=== PATIENT | female | born 1995 | race Caucasian/White ===

== ENCOUNTER 2018-09-16 16:02 | Inpatient (IN) | payer OTHER ==
[~2018-09-16] VITALS: Ht 157.5 cm; Wt 47.6 kg
--- NOTE | 2018-09-16 10:00 | NUR ---
NURSE NOTES: Patient vomited about 20cc of dark red blood. Will continue to monitor. Addendum: 09/16/18 at 2346 by AFSANEH TRUJILLO RN TIME WAS 2200 -- NOT 1000.
[2018-09-16 16:03] VITALS: BP 100/63
--- NOTE | 2018-09-16 16:05 | NUR ---
ED Nurse Note: Patient biba c/o of an upper GI bleed, patient states that she has been vomiting and has been dark red tinged, at time of arrival patient does have a throw up bag where it has about 50cc of dark red content on it, patient also arrived with a portacath on the right side of her chest that is patent and infusing liquids. patient is alert and oriented x4, ambulatory with a steady gait, VSS. Dr. Santos aware of patient's status of vomitting blood
[2018-09-16] MEDS ORDERED: DiphenhydrAMINE 50mg/ml Inj IVP ONE ×4 (16:15→20:00)
[2018-09-16] MEDS ORDERED: Hydromorphone 0.5mg/0.5ml inj IVP ONE ×2 (16:15→17:15)
[2018-09-16] MEDS ORDERED: Pantoprazole Inj IV ONE (16:15)
[2018-09-16] MEDS ORDERED: SandoSTATIN 50mcg Inj IVP ONE (16:15)
--- NOTE | 2018-09-16 16:39 | Emergency Room Report ---
History of Present Illness General Chief Complaint: Vomiting Source: Patient Present Illness HPI Patient is brought in by EMS. She's been vomiting blood and has severe epigastric pain. She has a history of severe cirrhosis. She's never had endoscopy done. She's had Swathi-Danielle tears in the past. She also has a history of gastritis. She denies drinking alcohol recently. No melena. She states she has not moved her bowels for several days. The patient was recently discharged 3 days ago from [facility]. Apparently she was scheduled for endoscopy but it was not performed. She left because she was not receiving analgesia. The patient is treated by at pain management doctor and requires high doses of Dilaudid for pain control. H/O bipolar disorder. She does not know that type of hepatitis she has had or the reason for the cirrhosis. She believes it might be hepatitis C. No fevers, chills, chest pain, palpitations, diarrhea, dysuria, abdominal pain, shortness of breath, depression, visual changes, headache. She states she is not at this time. Allergies: Coded Allergies: CHLORHEXIDINE (Verified Allergy, Unknown, Rash, 09/16/18) Patient History Past Medical History: see triage record Social History: Denies: smoking Social History Narrative from home Last Menstrual Period: 2016 Now: No Reviewed Nursing Documentation: PMH: Agreed; PSxH: Agreed Nursing Documentation-PMH Past Medical History: No History, Except For Review of Systems All Other Systems: negative except mentioned in HPI Physical Exam Vital Signs Date Time Temp Pulse Resp B/P (MAP) Pulse Ox O2 Delivery O2 Flow Rate FiO2 09/16/18 15:57 98.1 91 18 100/63 99 Room Air Sp02 EP Interpretation: reviewed, normal General Appearance: alert, GCS 15, mild distress Head: normocephalic Eyes: bilateral eye normal inspection ENT: moist mucus membranes, other - Vomiting dark red blood. Approximately 150 cc in the bag Neck: supple Respiratory: lungs clear, normal breath sounds Cardiovascular #1: regular rate, rhythm Cardiovascular #2: 2+ radial (R) Gastrointestinal: normal inspection, normal bowel sounds, no mass, non- distended, no rebound, guarding - Epigastric somewhat voluntary, tenderness - Epigastric Musculoskeletal: back normal, gait/station normal, normal range of motion Neurologic: alert, oriented x3, grossly normal Psychiatric: depressed affect, anxious Skin: warm/dry, other - Shallow and somewhat pale Medical Decision Making Diagnostic Impression: Primary Impression: UGI bleed Additional Impression: Epigastric pain ER Course Patient presents with vomiting blood and epigastric pain. Differential includes gastritis, esophageal variceal bleed, peptic ulcer, Swathi-Danielle tear amongst others. She may have pancreatitis also. Evaluation will be with EKG, chest x-ray, abdominal film and labs. The patient will be treated with IV hydration, Zofran, Dilaudid, Protonix and Sandostatin. EKG with normal sinus rhythm no injury. Chest x-ray no infiltrates. Abdominal x-ray with nonspecific bowel gas pattern. H/H low. White count normal. CMP normal. Normal lipase. Liver function tests normal. Coags normal. May need transfusions. Vomit several times with 50-100 ml blood (slightly dark, not coffee grounds). Patient with improved pain. Still intermittent vomiting. Several different medications used. Patient refused to take Reglan. Patient requesting Dilaudid 2 mg Q4 hours with benadryl. Blood ordered as ongoing bleeding and low H/H. Admit tele Dr. Gama. Laboratory Tests Test 09/16/18 16:25 White Blood Count 4.4 K/UL (4.8-10.8) L Red Blood Count 3.53 M/UL (4.20-5.40) L Hemoglobin 8.8 G/DL (12.0-16.0) L Hematocrit 28.4 % (37.0-47.0) L Mean Corpuscular Volume 80 FL (80-99) Mean Corpuscular Hemoglobin 25.1 PG (27.0-31.0) L Mean Corpuscular Hemoglobin Concent 31.2 G/DL (32.0-36.0) L Red Cell Distribution Width 17.2 % (11.6-14.8) H Platelet Count 108 K/UL (150-450) L Mean Platelet Volume 9.3 FL (6.5-10.1) Neutrophils (%) (Auto) 53.6 % (45.0-75.0) Lymphocytes (%) (Auto) 35.4 % (20.0-45.0) Monocytes (%) (Auto) 7.9 % (1.0-10.0) Eosinophils (%) (Auto) 2.3 % (0.0-3.0) Basophils (%) (Auto) 0.8 % (0.0-2.0) Prothrombin Time 11.4 SEC (9.30-11.50) Prothrombin Time INR 1.1 (0.9-1.1) PTT 99 SEC (23-33) H Urine Color Pale yellow Urine Appearance Clear Urine pH 5 (4.5-8.0) Urine Specific [place] 1.015 (1.005-1.035) Urine Protein Negative (NEGATIVE) Urine Glucose (UA) Negative (NEGATIVE) Urine Ketones Negative (NEGATIVE) Urine Blood Negative (NEGATIVE) Urine Nitrite Negative (NEGATIVE) Urine Bilirubin Negative (NEGATIVE) Urine Urobilinogen Normal MG/DL (0.0-1.0) Urine Leukocyte Esterase 1+ (NEGATIVE) H Urine RBC 0-2 /HPF (0 - 2) Urine WBC 2-4 /HPF (0 - 2) Urine Squamous Epithelial Cells Few /LPF (NONE/OCC) Urine Bacteria Few /HPF (NONE) Urine HCG, Qualitative Negative (NEGATIVE) Sodium Level 137 MMOL/L (136-145) Potassium Level 3.9 MMOL/L (3.5-5.1) Chloride Level 105 MMOL/L (98-107) Carbon Dioxide Level 25 MMOL/L (21-32) Anion Gap 7 mmol/L (5-15) Blood Urea Nitrogen 7 mg/dL (7-18) Creatinine 0.7 MG/DL (0.55-1.30) Estimate Glomerular Filtration Rate > 60 mL/min (>60) Glucose Level 99 MG/DL (74-106) Calcium Level 8.3 MG/DL (8.5-10.1) L Total Bilirubin 0.3 MG/DL (0.2-1.0) Aspartate Amino Transferase (AST) 35 U/L (15-37) Alanine Aminotransferase (ALT) 40 U/L (12-78) Alkaline Phosphatase 112 U/L (46-116) Total Protein 6.7 G/DL (6.4-8.2) Albumin 3.2 G/DL (3.4-5.0) L Globulin 3.5 g/dL Albumin/Globulin Ratio 0.9 (1.0-2.7) L Lipase 34 U/L (73-393) L EKG Diagnostic Results Rate: normal Rhythm: NSR ST Segments: no acute changes Rhythm Strip Diag. Results EP Interpretation: yes Rhythm: NSR, no PVC's, no ectopy Chest X-Ray Diagnostic Results Chest X-Ray Diagnostic Results : Chest X-Ray Ordered: Yes # of Views/Limited/Complete: 1 View Indication: Other EP Interpretation: Yes Interpretation: no consolidation, no effusion, no pneumothorax, other - nipple FBs Impression: Other Electronically Signed by: Electronically signed by Pollo Santos MD Other X-Ray Diagnostic Results Other X-Ray Diagnostic Results : X-Ray ordered: abd # of Views/Limited Vs Complete: 1 View Indication: Pain Interpretation: nonspecific bowel gas, no sbo, other - inc stool Impression: Other Electronically Signed by: Electronically signed by Pollo Santos MD Last Vital Signs Date Time Temp Pulse Resp B/P (MAP) Pulse Ox O2 Delivery O2 Flow Rate FiO2 09/17/18 00:00 Room Air 09/17/18 00:00 98.2 80 18 101/64 (76) 100 Status: improved Disposition: ADMITTED INPATIENT Condition: Serious Pollo Santos MD Sep 16, 2018 16:39
[2018-09-16 16:54] LABS: APPEARANCE,URINE CLEAR; BILIRUBIN, URINE NEGATIVE (NEGATIVE); COLOR,URINE PALE YELLOW; GLUCOSE, URINE (UA) NEGATIVE (NEGATIVE); KETONES,URINE NEGATIVE (NEGATIVE); LEUKOCYTE ESTERASE ,URINE 1+ (NEGATIVE); NITRITE,URINE NEGATIVE (NEGATIVE); PH,URINE 5 (4.5-8.0); PROTEIN,URINE NEGATIVE (NEGATIVE); UROBILINOGEN,URINE NORMAL MG/DL (0.0-1.0)
[2018-09-16 16:57] LABS: BASOPHILS % (AUTO) 0.8 % (0.0-2.0); EOSINOPHILS % (AUTO) 2.3 % (0.0-3.0); HEMATOCRIT 28.4 % (37.0-47.0); HEMOGLOBIN 8.8 G/DL (12.0-16.0); LYMPHOCYTES % (AUTO) 35.4 % (20.0-45.0); MEAN CORPUSCULAR VOLUME 80 FL (80-99); MONOCYTES % (AUTO) 7.9 % (1.0-10.0); NEUTROPHILS % (AUTO) 53.6 % (45.0-75.0); PLATELET COUNT 108 K/UL (150-450); RED BLOOD COUNT 3.53 M/UL (4.20-5.40); RED CELL DISTRIBUTION WIDTH 17.2 % (11.6-14.8); WHITE BLOOD COUNT 4.4 K/UL (4.8-10.8)
[2018-09-16 17:11] LABS: INR 1.1 (0.9-1.1)
[2018-09-16 17:22] LABS: ANION GAP 7 mmol/L (5-15); BLOOD UREA NITROGEN 7 mg/dL (7-18); CALCIUM 8.3 MG/DL (8.5-10.1); CARBON DIOXIDE 25 MMOL/L (21-32); CHLORIDE 105 MMOL/L (98-107); CREATININE 0.7 MG/DL (0.55-1.30); POTASSIUM 3.9 MMOL/L (3.5-5.1); SODIUM 137 MMOL/L (136-145)
[2018-09-16 17:26] LABS: ALANINE AMINOTRANSFERASE 40 U/L (12-78); ALBUMIN 3.2 G/DL (3.4-5.0); ALBUMIN/GLOBULIN RATIO 0.9 (1.0-2.7); ALKALINE PHOSPHATASE 112 U/L (46-116); ASPARTATE AMINO TRANSFERASE 35 U/L (15-37); BILIRUBIN,TOTAL 0.3 MG/DL (0.2-1.0)
[2018-09-16] MEDS ORDERED: TPN (17:34)
[2018-09-16] MEDS ORDERED: PANTOPRAZOLE SO40 MG ORAL (17:34)
[2018-09-16] MEDS ORDERED: CREON DR 3,0001 EACH PO (17:34)
[2018-09-16] MEDS ORDERED: AMBIEN10 MG ORAL (17:34)
[2018-09-16] MEDS ORDERED: LITHIUM CARBON150 MG ORAL (17:34)
[2018-09-16] MEDS ORDERED: SEROQUEL XR50 MG ORAL (17:34)
[2018-09-16] MEDS ORDERED: ATIVAN2 MG ORAL (17:34)
[2018-09-16] MEDS ORDERED: SEROQUEL XR300 MG ORAL (17:34)
[2018-09-16] MEDS ORDERED: SERTRALINE HCL100 MG PO (17:34)
[2018-09-16] MEDS: Metoclopramide 10mg/2ml Inj IVP ONE ×2 (18:45→19:17)
[2018-09-16] MEDS ORDERED: HYDROmorphone 1mg/ml Carpuject IVP ONE (18:45)
--- NOTE | 2018-09-16 19:00 | NUR ---
ED Nurse Note: Patient transferred to SDU
--- NOTE | 2018-09-16 19:24 | NUR ---
ED Nurse Note: Pt refused Reglan at this time, ERMD aware. Pt stated medication gives her anxiety.
--- NOTE | 2018-09-16 19:30 | NUR ---
NURSE NOTES: Received report from Anjum Patricia, [employer] US[employer] INTERFACE DEVELOPER. Awaiting patient arrival on unit.
[2018-09-16 20:00] VITALS: BP 118/85
--- NOTE | 2018-09-16 20:00 | NUR ---
NURSE NOTES: Patient arrived in unit. Patient is A/O x4. Saturating well on room air. No s/s of acute distress noted. Right chest portacath noted, intact and patent. Bed locked in lowest position with side rails up x2. Call light left within reach. Will continue to monitor.
--- NOTE | 2018-09-16 21:00 | NUR ---
NURSE NOTES: Received admit orders from Dr. Natan MD. Noted and carried out.
[2018-09-16] MEDS: Zolpidem 5mg tab ORAL SCH (22:15)
[2018-09-16] MEDS: Morphine Sulfate 4mg/ml Inj (IV USE ONLY) IVP PRN (22:16)
[2018-09-16] MEDS: DiphenhydrAMINE 50mg/ml Inj IVP PRN (22:17)
[2018-09-16] MEDS: D5NS 1,000 ML IV SCH (22:20)
[2018-09-17] VITALS (9 sets, daily range): BP systolic 98–130; BP diastolic 50–84
[2018-09-17] MEDS: Morphine Sulfate 4mg/ml Inj (IV USE ONLY) IVP PRN (04:15)
[2018-09-17] MEDS: DiphenhydrAMINE 50mg/ml Inj IVP PRN ×4 (04:15→23:10)
[2018-09-17] MEDS: Sertraline 100mg tab ORAL SCH (06:51)
--- NOTE | 2018-09-17 07:58 | NUR ---
HAND-OFF: Report given to Rusty Jimenez RN.
--- NOTE | 2018-09-17 07:59 | NUR ---
NURSE NOTES: Recieved patient from BEN Arnett. Patient VS stable at this time. Patient is on SR on the monitor and storage bin tender. Patient sleeping at this time. Patient on RA with stable saturation. Patient NPO at this time due to upper GI bleed. Patient has bathroom privileges. Patient steady on her feet at this time. Patient only vomited once on the floor this morning. Patient has a right chest permicath that is patent and asymptomatic at this time. Patient bed in low position with bed alarm on and call light in reach at this time.
--- NOTE | 2018-09-17 08:18 | NUR ---
NURSE NOTES: Spoke with Dr Gama regarding pain medication order. Medication changed from morphine to dilaudid at this time. Will follow up.
--- NOTE | 2018-09-17 08:18 | NUR ---
NURSE NOTES: Notified Dr Gama regarding WBC count of 24.1 this morning. Also notified him regarding uncontrolled pain with norco . is consulting Dr Oliva and he instructed for the patient to be given the dilaudid and reassessed. Addendum: 09/17/18 at 0825 by Susan Jimenez RN disregard this note. this note is regarding another patient.
[2018-09-17] MEDS ORDERED: Lithium Carbonate 150mg cap ORAL SCH ×2 (09:00)
[2018-09-17] MEDS: Pantoprazole Inj IVP SCH ×2 (09:33→18:35)
[2018-09-17] MEDS: LORazepam 1mg tab ORAL SCH ×2 (09:33→18:36)
--- NOTE | 2018-09-17 09:38 | Consultation ---
History of Present Illness General Date patient seen: Sep 17, 2018 Present Illness Allergies: Coded Allergies: CHLORHEXIDINE (Verified Allergy, Unknown, Rash, 09/16/18) Medication History Scheduled Lipase/Protease/Amylase (Creon Dr 3,000 Units Capsule), 2 EACH PO TID, (Reported ) [place] Carbonate* ([place]*), 20 MG ORAL DAILY, (Reported) Lorazepam* (Ativan*), 2 MG ORAL BID, (Reported) Pantoprazole* (Pantoprazole*), 40 MG ORAL DAILY, (Reported) Quetiapine Fumarate (Seroquel Xr), 50 MG ORAL ACBREAKFAST, (Reported) Quetiapine Fumarate (Seroquel Xr), 300 MG ORAL QHS, (Reported) Sertraline Hcl* (Zoloft*), 200 MG PO ACBREAKFAST, (Reported) Zolpidem Tartrate* (Ambien*), 10 MG ORAL BEDTIME, (Reported) [Tpn], OVER 12 HOURS, (Reported) Patient History Healthcare decision maker Resuscitation status Full Code Advanced Directive on File Physical Exam Last 24 Hour Vital Signs Date Time Temp Pulse Resp B/P (MAP) Pulse Ox O2 Delivery O2 Flow Rate FiO2 09/17/18 04:00 Room Air 09/17/18 04:00 96.3 76 16 98/57 (71) 99 09/17/18 03:37 68 09/17/18 00:00 Room Air 09/17/18 00:00 98.2 80 18 101/64 (76) 100 09/16/18 23:14 82 09/16/18 20:01 Room Air 09/16/18 20:00 98.1 87 18 118/85 (96) 100 09/16/18 19:00 98.1 85 18 100/63 99 Room Air 09/16/18 16:03 98.1 83 18 100/63 99 Room Air 09/16/18 16:03 91 18 Room Air 09/16/18 15:57 98.1 91 18 100/63 99 Room Air Intake and Output 09/16/18 09/17/18 18:59 06:59 Intake Total 1260 ml Balance 1260 ml Intake Oral 60 ml IV Total 950 ml Blood Product 250 ml # Voids 1 4 Laboratory Tests Test 09/16/18 16:25 White Blood Count 4.4 K/UL (4.8-10.8) L Red Blood Count 3.53 M/UL (4.20-5.40) L Hemoglobin 8.8 G/DL (12.0-16.0) L Hematocrit 28.4 % (37.0-47.0) L Mean Corpuscular Volume 80 FL (80-99) Mean Corpuscular Hemoglobin 25.1 PG (27.0-31.0) L Mean Corpuscular Hemoglobin Concent 31.2 G/DL (32.0-36.0) L Red Cell Distribution Width 17.2 % (11.6-14.8) H Platelet Count 108 K/UL (150-450) L Mean Platelet Volume 9.3 FL (6.5-10.1) Neutrophils (%) (Auto) 53.6 % (45.0-75.0) Lymphocytes (%) (Auto) 35.4 % (20.0-45.0) Monocytes (%) (Auto) 7.9 % (1.0-10.0) Eosinophils (%) (Auto) 2.3 % (0.0-3.0) Basophils (%) (Auto) 0.8 % (0.0-2.0) Prothrombin Time 11.4 SEC (9.30-11.50) Prothromb Time International Ratio 1.1 (0.9-1.1) Activated Partial Thromboplast Time 99 SEC (23-33) H Urine Color Pale yellow Urine Appearance Clear Urine pH 5 (4.5-8.0) Urine Specific [place] 1.015 (1.005-1.035) Urine Protein Negative (NEGATIVE) Urine Glucose (UA) Negative (NEGATIVE) Urine Ketones Negative (NEGATIVE) Urine Blood Negative (NEGATIVE) Urine Nitrite Negative (NEGATIVE) Urine Bilirubin Negative (NEGATIVE) Urine Urobilinogen Normal MG/DL (0.0-1.0) Urine Leukocyte Esterase 1+ (NEGATIVE) H Urine RBC 0-2 /HPF (0 - 2) Urine WBC 2-4 /HPF (0 - 2) Urine Squamous Epithelial Cells Few /LPF (NONE/OCC) Urine Bacteria Few /HPF (NONE) Urine HCG, Qualitative Negative (NEGATIVE) Sodium Level 137 MMOL/L (136-145) Potassium Level 3.9 MMOL/L (3.5-5.1) Chloride Level 105 MMOL/L (98-107) Carbon Dioxide Level 25 MMOL/L (21-32) Anion Gap 7 mmol/L (5-15) Blood Urea Nitrogen 7 mg/dL (7-18) Creatinine 0.7 MG/DL (0.55-1.30) Estimat Glomerular Filtration Rate > 60 mL/min (>60) Glucose Level 99 MG/DL (74-106) Calcium Level 8.3 MG/DL (8.5-10.1) L Total Bilirubin 0.3 MG/DL (0.2-1.0) Aspartate Amino Transf (AST/SGOT) 35 U/L (15-37) Alanine Aminotransferase (ALT/SGPT) 40 U/L (12-78) Alkaline Phosphatase 112 U/L (46-116) Total Protein 6.7 G/DL (6.4-8.2) Albumin 3.2 G/DL (3.4-5.0) L Globulin 3.5 g/dL Albumin/Globulin Ratio 0.9 (1.0-2.7) L Lipase 34 U/L (73-393) L Height (Feet): 5 Height (Inches): 2.00 Weight (Pounds): 105 Medications Current Medications Medications (Trade) Dose Ordered Sig/Rudi Route PRN Reason Start Time Stop Time Status Last Admin Dose Admin Dextrose/Sodium Chloride 1,000 ml @ 75 mls/hr [id number] IV 09/16/18 21:30 10/16/18 21:29 09/16/18 22:20 Diphenhydramine HCl (Benadryl) 50 mg Q6H PRN IVP Itching 09/16/18 21:15 10/16/18 21:14 09/17/18 04:15 [place] Carbonate ([place] Carbonate) 150 mg DAILY ORAL 09/17/18 09:00 10/17/18 08:59 Lorazepam (Ativan) 2 mg BID ORAL 09/17/18 09:00 09/24/18 08:59 Morphine Sulfate (Morphine Sulfate) 4 mg EVERY 6 HOURS PRN IVP For Pain 09/16/18 21:15 09/23/18 21:14 09/17/18 04:15 Ondansetron HCl (Zofran) 4 mg Q6H PRN IVP Nausea & Vomiting 09/16/18 19:30 10/16/18 19:29 09/16/18 19:27 Ondansetron HCl (Zofran) 4 mg Q6H PRN IVP Nausea & Vomiting 09/16/18 21:30 10/16/18 21:29 Pantoprazole (Protonix) 40 mg BID IVP 09/17/18 09:00 10/17/18 08:59 Quetiapine Fumarate (SEROquel) 50 mg BEFORE BREAKFAST ORAL 09/17/18 06:30 10/17/18 06:29 09/17/18 06:50 Quetiapine Fumarate (SEROquel) 300 mg QHS ORAL 09/16/18 22:15 10/16/18 22:14 09/16/18 22:15 Sertraline HCl (Zoloft) 200 mg ACBREAKFAST ORAL 09/17/18 06:30 10/17/18 06:29 09/17/18 06:51 Zolpidem Tartrate (Ambien) 5 mg BEDTIME ORAL 09/16/18 22:00 09/24/18 20:59 09/16/18 22:15 Assessment/Plan Assessment/Plan (1) Abdominal pain (2) Upper GI Bleed (3) H/o Chronic pancreatitis with total pancreectomy (4) Liver cirrhosis seen dictated Youisf Hector Sep 17, 2018 09:38
--- NOTE | 2018-09-17 10:55 | GI Initial Consult Note ---
History of Present Illness General Date patient seen: Sep 17, 2018 Time patient seen: 10:54 Reason for Hospitalization: Vomiting Referring physician: CA CHU Reason for Consultation: UGIB Present Illness HPI Patient is brought in by EMS. She's been vomiting blood and has severe epigastric pain. Chest is a history of severe cirrhosis. She's never had endoscopy done. She's had Swathi-Danielle tears in the past. The patient was recently discharged 3 days ago from [facility]. Apparently she was scheduled for endoscopy but it was not performed. She left because she was not receiving analgesia. The patient is treated by at pain management doctor and requires high doses of Dilaudid for pain control. H/O bipolar disorder. GI consulted for UGIB. Patient presents with vomiting blood and epigastric pain. Vomit several times with 50-100 ml blood (slightly dark, not coffee grounds). Blood ordered as ongoing bleeding and low H/H. Labs reviewed; patient presents today with anemia. No known history of endoscopy. Home Meds Reported Medications [Tpn] No Conflict Check, OVER 12 HOURS 09/16/18 [place] Carbonate* (LITHIUM*) 150 Mg Capsule, 20 MG ORAL DAILY, CAP 0 Refills 09/16/18 Zolpidem Tartrate* (AMBIEN*) 10 Mg Tablet, 10 MG ORAL BEDTIME, TAB 0 Refills 09/16/18 Sertraline Hcl* (ZOLOFT*) 100 Mg Tablet, 200 MG PO ACBREAKFAST, TAB 09/16/18 Quetiapine Fumarate (SEROQUEL XR) 300 Mg Tab.er.24h, 300 MG ORAL QHS, TAB 09/16/18 Quetiapine Fumarate (SEROQUEL XR) 50 Mg Tab.er.24h, 50 MG ORAL ACBREAKFAST, TAB 09/16/18 Pantoprazole* (PANTOPRAZOLE*) 40 Mg Tablet.dr, 40 MG ORAL DAILY, TAB 09/16/18 Lipase/Protease/Amylase (CREON 3,000 UNITS CAPSULE) 1 Each Capsule.dr, 2 EACH PO TID, CAP 09/16/18 Lorazepam* (ATIVAN*) 2 Mg Tablet, 2 MG ORAL BID, TAB 09/16/18 Med list reviewed/reconciled: Yes Allergies: Coded Allergies: CHLORHEXIDINE (Verified Allergy, Unknown, Rash, 09/16/18) Patient History PMH Narrative Allergies: Coded Allergies: CHLORHEXIDINE (Verified Allergy, Unknown, Rash, 09/16/18) Patient History Past Medical History: see triage record Social History: Denies: smoking Social History Narrative from home Last Menstrual Period: 2016 Now: No Reviewed Nursing Documentation: PMH: Agreed; PSxH: Agreed Nursing Documentation-PMH Past Medical History: No History, Except For ER ROS - General Review of Systems ER Physical Exam - General Physical Exam Vital Signs Date Time Temp Pulse Resp B/P (MAP) Pulse Ox O2 Delivery O2 Flow Rate FiO2 09/16/18 15:57 98.1 91 18 100/63 99 Room Air ER Procedures - General Procedures ER MDM/Plan Medical Decision Making Diagnostic Impression: Primary Impression: UGI bleed Additional Impression: Epigastric pain Review of Systems All Other Systems: negative except mentioned in HPI Physical Exam Vital Signs Date Time Temp Pulse Resp B/P (MAP) Pulse Ox O2 Delivery O2 Flow Rate FiO2 09/16/18 08:25 115 09/16/18 15:57 98.1 18 100/63 99 Room Air Sp02 EP Interpretation: reviewed, normal Labs Laboratory Tests Test 09/16/18 16:25 White Blood Count 4.4 K/UL (4.8-10.8) L Red Blood Count 3.53 M/UL (4.20-5.40) L Hemoglobin 8.8 G/DL (12.0-16.0) L Hematocrit 28.4 % (37.0-47.0) L Mean Corpuscular Volume 80 FL (80-99) Mean Corpuscular Hemoglobin 25.1 PG (27.0-31.0) L Mean Corpuscular Hemoglobin Concent 31.2 G/DL (32.0-36.0) L Red Cell Distribution Width 17.2 % (11.6-14.8) H Platelet Count 108 K/UL (150-450) L Mean Platelet Volume 9.3 FL (6.5-10.1) Neutrophils (%) (Auto) 53.6 % (45.0-75.0) Lymphocytes (%) (Auto) 35.4 % (20.0-45.0) Monocytes (%) (Auto) 7.9 % (1.0-10.0) Eosinophils (%) (Auto) 2.3 % (0.0-3.0) Basophils (%) (Auto) 0.8 % (0.0-2.0) Prothrombin Time 11.4 SEC (9.30-11.50) Prothromb Time International Ratio 1.1 (0.9-1.1) Activated Partial Thromboplast Time 99 SEC (23-33) H Urine Color Pale yellow Urine Appearance Clear Urine pH 5 (4.5-8.0) Urine Specific [place] 1.015 (1.005-1.035) Urine Protein Negative (NEGATIVE) Urine Glucose (UA) Negative (NEGATIVE) Urine Ketones Negative (NEGATIVE) Urine Blood Negative (NEGATIVE) Urine Nitrite Negative (NEGATIVE) Urine Bilirubin Negative (NEGATIVE) Urine Urobilinogen Normal MG/DL (0.0-1.0) Urine Leukocyte Esterase 1+ (NEGATIVE) H Urine RBC 0-2 /HPF (0 - 2) Urine WBC 2-4 /HPF (0 - 2) Urine Squamous Epithelial Cells Few /LPF (NONE/OCC) Urine Bacteria Few /HPF (NONE) Urine HCG, Qualitative Negative (NEGATIVE) Sodium Level 137 MMOL/L (136-145) Potassium Level 3.9 MMOL/L (3.5-5.1) Chloride Level 105 MMOL/L (98-107) Carbon Dioxide Level 25 MMOL/L (21-32) Anion Gap 7 mmol/L (5-15) Blood Urea Nitrogen 7 mg/dL (7-18) Creatinine 0.7 MG/DL (0.55-1.30) Estimat Glomerular Filtration Rate > 60 mL/min (>60) Glucose Level 99 MG/DL (74-106) Calcium Level 8.3 MG/DL (8.5-10.1) L Total Bilirubin 0.3 MG/DL (0.2-1.0) Aspartate Amino Transf (AST/SGOT) 35 U/L (15-37) Alanine Aminotransferase (ALT/SGPT) 40 U/L (12-78) Alkaline Phosphatase 112 U/L (46-116) Total Protein 6.7 G/DL (6.4-8.2) Albumin 3.2 G/DL (3.4-5.0) L Globulin 3.5 g/dL Albumin/Globulin Ratio 0.9 (1.0-2.7) L Lipase 34 U/L (73-393) L General Appearance: well appearing, no apparent distress, alert Head: normocephalic EENT: PERRL/EOMI, normal ENT inspection Neck: supple Respiratory: normal breath sounds, no respiratory distress Cardiovascular: normal rate Gastrointestinal: normal inspection, non tender, soft, normal bowel sounds, non -distended Rectal: deferred Genitourinary: no CVA tenderness Musculoskeletal: normal inspection, back normal Neurologic: normal inspection, alert, oriented x3, responsive Psychiatric: normal inspection, judgement/insight normal, memory normal Skin: normal inspection, normal color, no rash, warm/dry, palpation normal, well hydrated Lymphatic: normal inspection, no adenopathy Current Medications Current Medications Medications (Trade) Dose Ordered Sig/Rudi Route PRN Reason Start Time Stop Time Status Last Admin Dose Admin Dextrose/Sodium Chloride 1,000 ml @ 75 mls/hr [id number] IV 09/16/18 21:30 10/16/18 21:29 09/16/18 22:20 Diphenhydramine HCl (Benadryl) 50 mg Q6H PRN IVP Itching 09/16/18 21:15 10/16/18 21:14 09/17/18 04:15 Hydromorphone HCl (Dilaudid) 2 mg Q6H PRN IVP severe pain (7-10) 09/17/18 10:52 09/24/18 10:51 Watts Carbonate (Watts Carbonate) 150 mg DAILY ORAL 09/17/18 09:00 10/17/18 08:59 09/17/18 09:32 Lorazepam (Ativan) 2 mg BID ORAL 09/17/18 09:00 09/24/18 08:59 09/17/18 09:33 Ondansetron HCl (Zofran) 4 mg Q6H PRN IVP Nausea & Vomiting 09/16/18 19:30 10/16/18 19:29 09/16/18 19:27 Ondansetron HCl (Zofran) 4 mg Q6H PRN IVP Nausea & Vomiting 09/16/18 21:30 10/16/18 21:29 Pantoprazole (Protonix) 40 mg BID IVP 09/17/18 09:00 10/17/18 08:59 09/17/18 09:33 Quetiapine Fumarate (SEROquel) 50 mg BEFORE BREAKFAST ORAL 09/17/18 06:30 10/17/18 06:29 09/17/18 06:50 Quetiapine Fumarate (SEROquel) 300 mg QHS ORAL 09/16/18 22:15 10/16/18 22:14 09/16/18 22:15 Sertraline HCl (Zoloft) 200 mg ACBREAKFAST ORAL 09/17/18 06:30 10/17/18 06:29 09/17/18 06:51 Zolpidem Tartrate (Ambien) 5 mg BEDTIME ORAL 09/16/18 22:00 09/24/18 20:59 09/16/18 22:15 GI: Plan Problems: (1) UGI bleed (2) Epigastric pain Plan EGD scheduled for today Maintain the patient n.p.o. plus IV fluids PPI twice daily PRN transfusions We will follow with additional recommendations post procedure Discussed with Dr. Pollock. Thank you for this patient referral, we will follow. The patient was seen and examined at bedside and all new and available data was reviewed in the patients chart. I agree with the above findings, impression and plan. (Patient seen earlier today. Signature stamp does not reflect patient encounter time.). - MD May V[facility]quezHonor[facility] [employer] PL[employer] MANAGER Sep 17, 2018 10:55
[2018-09-17] MEDS: D5NS 1,000 ML IV SCH (11:00)
--- NOTE | 2018-09-17 11:08 | NUR ---
*-*INSURANCE ALL CLINICALS HAVE BEEN FAXED TO: KIRIT HENDERSON:HANNAH P:[phone] F:[phone]
[2018-09-17] MEDS ORDERED: Atropine Inj 1mg/10ml Syr IV PRN (11:15)
[2018-09-17] MEDS ORDERED: DiphenhydrAMINE 50mg/ml Inj IVP PRN (11:15)
[2018-09-17] MEDS ORDERED: Midazolam 2mg/2ml Inj IVP PRN (11:15)
[2018-09-17] MEDS ORDERED: fentaNYL 100 mcg/2 mL IV PRN (11:15)
--- NOTE | 2018-09-17 11:15 | Consultation ---
DATE OF CONSULTATION: 09/17/2018 PAIN MANAGEMENT CONSULTATION CONSULTING PHYSICIAN: Ismael Keating M.D. REFERRING PHYSICIAN: Otf Gama M.D. PHYSICIAN [employer] DIRECTOR: Sherice Mcpherson CHIEF COMPLAINT: Abdominal pain. HISTORY OF PRESENT ILLNESS: This is a 23-year-old female, who is being seen in the [facility] for initial pain management consultation. The patient was admitted under the care of Dr. Gama due to nausea, vomiting with vomiting of blood, possible GI bleed. She has a history of abdominal pain due to chronic pancreatitis, cystic fibrosis, liver cirrhosis, and having appendectomy, cholecystectomy, splenectomy, and total pancreatectomy with total islet transplant as per patient. Surgical scars noted on the abdominal area with tenderness to palpation. As an outpatient, the patient has been seeing Dr. Knight, who has prescribing the patient Dilaudid 2 mg tablets three times a day due to the severity of her pain and now is being admitted under the care of Dr. Gama due to the upper GI bleed with nausea and vomiting, which she had blood in the vomit and with severe epigastric pain. She was started on morphine 4 mg IV every six hours as needed with minimal pain relief. Dr. Gama has increased to Dilaudid 2 mg IV every six hours as needed for severe pain at this time. We were consulted the patient would have adequate pain control while here in the hospital. PAST MEDICAL HISTORY: Again is pancreatitis, cystic fibrosis, cirrhosis, depression, and bipolar disorder. PAST SURGICAL HISTORY: Appendectomy, cholecystectomy, splenectomy, total pancreatectomy, and total islet transplant. SOCIAL HISTORY: Denies smoking tobacco, drinking alcohol, or IV drug abuse. ALLERGIES: Chlorhexidine. MEDICATIONS: Lipase protease amylase, lithium carbonate, Ativan, pantoprazole, Seroquel, Zoloft, and Ambien. REVIEW OF SYSTEMS: Denies rash, fever, chills, sweating, dizziness, drowsiness, blurred vision, sore throat, change in hearing or weight. No shortness of breath or chest pain. No bowel or bladder incontinence. No dysuria. She is complaining of severe abdominal pain with vomiting blood. PHYSICAL EXAMINATION: GENERAL: Alert, awake, and oriented x3. VITAL SIGNS: Blood pressure 98/57, heart rate 76, oxygen saturation 99%, respiratory rate 16, and temperature 96.3 degrees Fahrenheit. HEENT: PERRLA. NECK: Range of motion is full in all directions. No tenderness to paracervical muscles. No adenopathy. LUNGS: Clear bilaterally. HEART: S1 and S2, regular. ABDOMEN: Tenderness to palpation with surgical scars noted. BACK: Range of motion is decreased in flexion and extension. No tenderness to paraspinal muscles or trapezius or rhomboid muscles. EXTREMITIES: Upper and lower extremity range of motion is full in all directions. No cyanosis. No clubbing. No edema. Sensory is intact. Reflexes are not obtainable. No adenopathy. ASSESSMENT AND PLAN: This is a 23-year-old female with abdominal pain, upper GI bleed, history of chronic pancreatitis with total pancreatectomy, and liver cirrhosis. The patient will be continued on Dilaudid 2 mg IV every six hours as needed for severe pain. The patient was discussed with Dr. Keating and Dr. Keating concurred. We will follow the patient. Thank you very much for the courtesy of this consultation. Ismael Keating M.D. TRISTEN Mcpherson DR: AMANDA JOB#: [id number] CC:
--- NOTE | 2018-09-17 11:28 | Pre-Procedure Note/Attestation ---
Pre-Procedure Note/Attestation Complete Prior to Procedure Planned Procedure: not applicable Procedure Narrative: egd Indications for Procedure Pre-Operative Diagnosis: gib Attestation I attest that I discussed the nature of the procedure; its benefits; risks and complications; and alternatives (and the risks and benefits of such alternatives ), prior to the procedure, with the patient (or the patient's legal entry level account representative). I attest that, if there was a reasonable possibility of needing a blood transfusion, the patient (or the patient's legal entry level account representative) was given the [facility] standardized written summary, pursuant to the Robert Teodoro Blood Safety Act ([place] Health and Safety Code # 1645, as amended). I attest that I re-evaluated the patient just prior to the surgery and that there has been no change in the patient's H&P, except as documented below: Gary Pollock MD Sep 17, 2018 11:27
--- NOTE | 2018-09-17 12:02 | Diagnostic Imaging Report ---
Indication: Dyspnea Comparison: None A single view chest radiograph was obtained. Findings: Cardiomediastinal appearance is within normal limits for age. There is a right chest port present in good position. The tip is projected over the right atrium. The lungs are clear. Pulmonary vascularity is appropriate. The diaphragmatic contour is smooth and costophrenic angles are sharp. No pleural effusions are identified. The bones are unremarkable. Cholecystectomy clips are demonstrated in the right upper quadrant of abdomen. Impression: No acute findings
--- NOTE | 2018-09-17 12:03 | Diagnostic Imaging Report ---
Indication: Abdominal pain Comparison: None Single view of the abdomen obtained Findings: Moderate to severe retention of fecal material demonstrated throughout the colon. Bowel gas pattern is nonspecific. Bones are unremarkable. IMPRESSION: Fecal retention
[2018-09-17] MEDS ORDERED: Lidocaine 1% MPF 10mg/ml 5ml ONE (12:30)
[2018-09-17] MEDS ORDERED: Propofol 200mg/20ml IV ONE (12:30)
--- NOTE | 2018-09-17 12:34 | Endoscopy Procedure Note ---
Endoscopy Procedure Note General Indication for Procedure: gib Procedures Performed: EGD Operative Findings/Diagnosis: gastritis Specimen: yes Pt Tolerated Procedure Well: Yes Estimated Blood Loss: none Anesthesia Anesthesiologist: mervin Anesthesia: MAC Inserted Devices Implant(s) used?: No GI Core Measures 50 yrs or older w/o bx or poly: Not Applicable 10yrs. F/U not recommended: Not Applicable Gary Pollock MD Sep 17, 2018 12:34
[2018-09-17] MEDS ORDERED: NS 500ML IVPB ONE (12:40)
--- NOTE | 2018-09-17 12:52 | Diagnostic Imaging Report ---
Indication:Abdominal pain Technique: Grayscale and duplex Doppler imaging of the abdomen performed. Comparison: None Findings: The liver is echogenic consistent with fatty infiltration. The portal vein is patent by Doppler examination. The pancreas, much of the aorta and IVC are obscured. There is dense shadowing due to bowel gas in the area of the gallbladder fossa. No biliary ductal dilatation is appreciated. No hydronephrosis or free fluid identified. The spleen is absent. The pancreas is not seen. There is a history of previous pancreatectomy. IMPRESSION: Fatty infiltration of the liver. Status post cholecystectomy Status post splenectomy. Limited study due to bowel gas
--- NOTE | 2018-09-17 13:03 | Consultation ---
History of Present Illness General Date patient seen: Sep 17, 2018 Chief Complaint: Vomiting Referring physician: CA CHU Reason for Consultation: UGIB Present Illness Allergies: Coded Allergies: CHLORHEXIDINE (Verified Allergy, Unknown, Rash, 09/16/18) Medication History Scheduled Lipase/Protease/Amylase (Creon Dr 3,000 Units Capsule), 2 EACH PO TID, (Reported ) Bath Carbonate* (Bath*), 20 MG ORAL DAILY, (Reported) Lorazepam* (Ativan*), 2 MG ORAL BID, (Reported) Pantoprazole* (Pantoprazole*), 40 MG ORAL DAILY, (Reported) Quetiapine Fumarate (Seroquel Xr), 50 MG ORAL ACBREAKFAST, (Reported) Quetiapine Fumarate (Seroquel Xr), 300 MG ORAL QHS, (Reported) Sertraline Hcl* (Zoloft*), 200 MG PO ACBREAKFAST, (Reported) Zolpidem Tartrate* (Ambien*), 10 MG ORAL BEDTIME, (Reported) [Tpn], OVER 12 HOURS, (Reported) Patient History Healthcare decision maker Resuscitation status Full Code Advanced Directive on File Physical Exam Last 24 Hour Vital Signs Date Time Temp Pulse Resp B/P (MAP) Pulse Ox O2 Delivery O2 Flow Rate FiO2 09/17/18 04:00 Room Air 09/17/18 04:00 96.3 76 16 98/57 (71) 99 09/17/18 03:37 68 09/17/18 00:00 Room Air 09/17/18 00:00 98.2 80 18 101/64 (76) 100 09/16/18 23:14 82 09/16/18 20:01 Room Air 09/16/18 20:00 98.1 87 18 118/85 (96) 100 09/16/18 19:00 98.1 85 18 100/63 99 Room Air 09/16/18 16:03 98.1 83 18 100/63 99 Room Air 09/16/18 16:03 91 18 Room Air 09/16/18 15:57 98.1 91 18 100/63 99 Room Air Intake and Output 09/16/18 09/17/18 18:59 06:59 Intake Total 1260 ml Balance 1260 ml Intake Oral 60 ml IV Total 950 ml Blood Product 250 ml # Voids 1 4 Laboratory Tests Test 09/16/18 16:25 White Blood Count 4.4 K/UL (4.8-10.8) L Red Blood Count 3.53 M/UL (4.20-5.40) L Hemoglobin 8.8 G/DL (12.0-16.0) L Hematocrit 28.4 % (37.0-47.0) L Mean Corpuscular Volume 80 FL (80-99) Mean Corpuscular Hemoglobin 25.1 PG (27.0-31.0) L Mean Corpuscular Hemoglobin Concent 31.2 G/DL (32.0-36.0) L Red Cell Distribution Width 17.2 % (11.6-14.8) H Platelet Count 108 K/UL (150-450) L Mean Platelet Volume 9.3 FL (6.5-10.1) Neutrophils (%) (Auto) 53.6 % (45.0-75.0) Lymphocytes (%) (Auto) 35.4 % (20.0-45.0) Monocytes (%) (Auto) 7.9 % (1.0-10.0) Eosinophils (%) (Auto) 2.3 % (0.0-3.0) Basophils (%) (Auto) 0.8 % (0.0-2.0) Prothrombin Time 11.4 SEC (9.30-11.50) Prothromb Time International Ratio 1.1 (0.9-1.1) Activated Partial Thromboplast Time 99 SEC (23-33) H Urine Color Pale yellow Urine Appearance Clear Urine pH 5 (4.5-8.0) Urine Specific S[place]ord 1.015 (1.005-1.035) Urine Protein Negative (NEGATIVE) Urine Glucose (UA) Negative (NEGATIVE) Urine Ketones Negative (NEGATIVE) Urine Blood Negative (NEGATIVE) Urine Nitrite Negative (NEGATIVE) Urine Bilirubin Negative (NEGATIVE) Urine Urobilinogen Normal MG/DL (0.0-1.0) Urine Leukocyte Esterase 1+ (NEGATIVE) H Urine RBC 0-2 /HPF (0 - 2) Urine WBC 2-4 /HPF (0 - 2) Urine Squamous Epithelial Cells Few /LPF (NONE/OCC) Urine Bacteria Few /HPF (NONE) Urine HCG, Qualitative Negative (NEGATIVE) Sodium Level 137 MMOL/L (136-145) Potassium Level 3.9 MMOL/L (3.5-5.1) Chloride Level 105 MMOL/L (98-107) Carbon Dioxide Level 25 MMOL/L (21-32) Anion Gap 7 mmol/L (5-15) Blood Urea Nitrogen 7 mg/dL (7-18) Creatinine 0.7 MG/DL (0.55-1.30) Estimat Glomerular Filtration Rate > 60 mL/min (>60) Glucose Level 99 MG/DL (74-106) Calcium Level 8.3 MG/DL (8.5-10.1) L Total Bilirubin 0.3 MG/DL (0.2-1.0) Aspartate Amino Transf (AST/SGOT) 35 U/L (15-37) Alanine Aminotransferase (ALT/SGPT) 40 U/L (12-78) Alkaline Phosphatase 112 U/L (46-116) Total Protein 6.7 G/DL (6.4-8.2) Albumin 3.2 G/DL (3.4-5.0) L Globulin 3.5 g/dL Albumin/Globulin Ratio 0.9 (1.0-2.7) L Lipase 34 U/L (73-393) L Height (Feet): 5 Height (Inches): 2.00 Weight (Pounds): 105 Medications Current Medications Medications (Trade) Dose Ordered Sig/Rudi Route PRN Reason Start Time Stop Time Status Last Admin Dose Admin Al Hydroxide/Mg Hydroxide (Mylanta) 15 ml Q1H PRN ORAL gi upset 09/17/18 11:15 09/17/18 18:00 Atropine Sulfate (Atropine) 0.5 mg Q5M PRN IV bpm less than 45 09/17/18 11:15 09/17/18 18:00 Dextrose/Sodium Chloride 1,000 ml @ 75 mls/hr [id number] IV 09/16/18 21:30 10/16/18 21:29 09/17/18 11:00 Diphenhydramine HCl (Benadryl) 25 mg Q15M PRN IVP Itching 09/17/18 11:15 09/17/18 18:00 Diphenhydramine HCl (Benadryl) 50 mg Q6H PRN IVP Itching 09/16/18 21:15 10/16/18 21:14 09/17/18 10:58 Fentanyl Citrate (Sublimaze 100 mcg/2 mL) 25 mcg Q10M PRN IV Moderate Pain (Pain Scale 4-6) 09/17/18 11:15 09/17/18 18:00 Hydralazine HCl (Apresoline) 5 mg Q30M PRN IV SBP>160 OR___/DBP>90 OR___ 09/17/18 11:15 09/17/18 18:00 Hydromorphone HCl (Dilaudid) 2 mg Q6H PRN IVP severe pain (7-10) 09/17/18 10:52 09/24/18 10:51 09/17/18 10:58 Bath Carbonate (Bath Carbonate) 150 mg DAILY ORAL 09/17/18 09:00 10/17/18 08:59 09/17/18 09:32 Lorazepam (Ativan) 2 mg BID ORAL 09/17/18 09:00 09/24/18 08:59 09/17/18 09:33 Midazolam HCl (Versed 2mg/2ml vial) 1 mg Q15M PRN IVP For Anxiety 09/17/18 11:15 09/17/18 18:00 Ondansetron HCl (Zofran) 4 mg Q1H PRN IVP Nausea & Vomiting 09/17/18 11:15 09/17/18 18:00 Ondansetron HCl (Zofran) 4 mg Q6H PRN IVP Nausea & Vomiting 09/16/18 19:30 10/16/18 19:29 09/16/18 19:27 Ondansetron HCl (Zofran) 4 mg Q6H PRN IVP Nausea & Vomiting 09/16/18 21:30 10/16/18 21:29 Pantoprazole (Protonix) 40 mg BID IVP 09/17/18 09:00 10/17/18 08:59 09/17/18 09:33 Quetiapine Fumarate (SEROquel) 50 mg BEFORE BREAKFAST ORAL 09/17/18 06:30 10/17/18 06:29 09/17/18 06:50 Quetiapine Fumarate (SEROquel) 300 mg QHS ORAL 09/16/18 22:15 10/16/18 22:14 09/16/18 22:15 Sertraline HCl (Zoloft) 200 mg ACBREAKFAST ORAL 09/17/18 06:30 2/16/19 06:29 09/17/18 06:51 Sodium Chloride 1,000 ml @ 10 mls/hr Q24H IVLG 09/17/18 11:15 09/17/18 13:14 Zolpidem Tartrate (Ambien) 5 mg BEDTIME ORAL 09/16/18 22:00 09/24/18 20:59 09/16/18 22:15 Assessment/Plan Assessment/Plan Hematology Consultation Note Reason for Hospitalization: Vomiting Referring physician: CA CHU Reason for Consultation: UGIB, Pancytopenia DOS: 09/17/18 ID: 23y old female Patient is brought in by EMS. She's been vomiting blood and has severe epigastric pain. Chest is a history of severe cirrhosis. She's never had endoscopy done. She's had Swathi-Danielle tears in the past. The patient was recently discharged 3 days ago from [facility]. Apparently she was scheduled for endoscopy but it was not performed. She left because she was not receiving analgesia. The patient is treated by at pain management doctor and requires high doses of Dilaudid for pain control. H/O bipolar disorder. GI consulted for UGIB. Patient presents with vomiting blood and epigastric pain. Vomit several times with 50-100 ml blood (slightly dark, not coffee grounds). Blood ordered as ongoing bleeding and low H/H. Labs reviewed; patient presents today with anemia. No known history of endoscopy. EGD done and shows gastritis today. Home Medications [Tpn] No Conflict Check, OVER 12 HOURS 09/16/18 Bath Carbonate* (LITHIUM*) 150 Mg Capsule, 20 MG ORAL DAILY, CAP 0 Refills 09/16/18 Zolpidem Tartrate* (AMBIEN*) 10 Mg Tablet, 10 MG ORAL BEDTIME, TAB 0 Refills 09/16/18 Sertraline Hcl* (ZOLOFT*) 100 Mg Tablet, 200 MG PO ACBREAKFAST, TAB 09/16/18 Quetiapine Fumarate (SEROQUEL XR) 300 Mg Tab.er.24h, 300 MG ORAL QHS, TAB 09/16/18 Quetiapine Fumarate (SEROQUEL XR) 50 Mg Tab.er.24h, 50 MG ORAL ACBREAKFAST, TAB 09/16/18 Pantoprazole* (PANTOPRAZOLE*) 40 Mg Tablet.dr, 40 MG ORAL DAILY, TAB 09/16/18 Lipase/Protease/Amylase (CREON 3,000 UNITS CAPSULE) 1 Each Capsule.dr, 2 EACH PO TID, CAP 09/16/18 Lorazepam* (ATIVAN*) 2 Mg Tablet, 2 MG ORAL BID, TAB 09/16/18 Med list reviewed/reconciled: Yes Allergies: Coded Allergies: CHLORHEXIDINE (Verified Allergy, Unknown, Rash, 09/16/18) PMH Narrative Allergies: Coded Allergies: CHLORHEXIDINE (Verified Allergy, Unknown, Rash, 09/16/18) Past Medical History: see triage record Social History: Denies: smoking Social History Narrative from home Last Menstrual Period: 2016 Now: No ROS: Constitutional: No fever, no chills, no night sweats, no fatigue Skin: No rashes, lumps, itchiness, dryness HEENT: No BEASLEY, ear ache, visual changes, double vision, nosebleeds, sore throat, lumps, swollen glands Breasts: No lumps, pain, discharge Pulmonary: No cough, sputum, shortness of breath, coughing up blood, hemoptysis Cardiovascular: No chest pain, tightness, palpitations, syncope, claudication, orthopnea, PND GI: No nausea, vomiting, diarrhea, melena, hematochezia, change in appetite, abdominal pain : No dysuria, frequency, urgency, urinary incontinence, foamy urine Musculoskeletal: No joint swelling or muscle pain, trauma, back pain Neurologic: No dizziness, fainting, seizures, changes in smell or taste Psychiatric: No nervousness, stress, or depression, anxiety, hallucinations Endocrine: No weight change, heat or cold intolerance, tremor, insomnia Physical Exam Last Vital Signs Date Time Temp Pulse Resp B/P (MAP) Pulse Ox O2 Delivery O2 Flow Rate FiO2 09/17/18 04:00 Room Air 09/17/18 04:00 96.3 76 16 98/57 (71) 99 General Appearance: A+O x3, NAD HEENT: normocephalic, atraumatic Neck: non-tender, normal alignment Respiratory/Chest: chest wall non-tender, lungs clear Cardiovascular/Chest: normal peripheral pulses, normal rate Abdomen: normal bowel sounds, non tender ++ scars on abd Extremities: normal range of motion Review of Systems All Other Systems: negative except mentioned in HPI Laboratory Tests Test 09/16/18 16:25 White Blood Count 4.4 K/UL (4.8-10.8) L Red Blood Count 3.53 M/UL (4.20-5.40) L Hemoglobin 8.8 G/DL (12.0-16.0) L Hematocrit 28.4 % (37.0-47.0) L Mean Corpuscular Volume 80 FL (80-99) Mean Corpuscular Hemoglobin 25.1 PG (27.0-31.0) L Mean Corpuscular Hemoglobin Concent 31.2 G/DL (32.0-36.0) L Red Cell Distribution Width 17.2 % (11.6-14.8) H Platelet Count 108 K/UL (150-450) L Mean Platelet Volume 9.3 FL (6.5-10.1) Neutrophils (%) (Auto) 53.6 % (45.0-75.0) Lymphocytes (%) (Auto) 35.4 % (20.0-45.0) Monocytes (%) (Auto) 7.9 % (1.0-10.0) Eosinophils (%) (Auto) 2.3 % (0.0-3.0) Basophils (%) (Auto) 0.8 % (0.0-2.0) Prothrombin Time 11.4 SEC (9.30-11.50) Prothromb Time International Ratio 1.1 (0.9-1.1) Activated Partial Thromboplast Time 99 SEC (23-33) H Urine Color Pale yellow Urine Appearance Clear Urine pH 5 (4.5-8.0) Urine Specific [place] 1.015 (1.005-1.035) Urine Protein Negative (NEGATIVE) Urine Glucose (UA) Negative (NEGATIVE) Urine Ketones Negative (NEGATIVE) Urine Blood Negative (NEGATIVE) Urine Nitrite Negative (NEGATIVE) Urine Bilirubin Negative (NEGATIVE) Urine Urobilinogen Normal MG/DL (0.0-1.0) Urine Leukocyte Esterase 1+ (NEGATIVE) H Urine RBC 0-2 /HPF (0 - 2) Urine WBC 2-4 /HPF (0 - 2) Urine Squamous Epithelial Cells Few /LPF (NONE/OCC) Urine Bacteria Few /HPF (NONE) Urine HCG, Qualitative Negative (NEGATIVE) Sodium Level 137 MMOL/L (136-145) Potassium Level 3.9 MMOL/L (3.5-5.1) Chloride Level 105 MMOL/L (98-107) Carbon Dioxide Level 25 MMOL/L (21-32) Anion Gap 7 mmol/L (5-15) Blood Urea Nitrogen 7 mg/dL (7-18) Creatinine 0.7 MG/DL (0.55-1.30) Estimat Glomerular Filtration Rate > 60 mL/min (>60) Glucose Level 99 MG/DL (74-106) Calcium Level 8.3 MG/DL (8.5-10.1) L Total Bilirubin 0.3 MG/DL (0.2-1.0) Aspartate Amino Transf (AST/SGOT) 35 U/L (15-37) Alanine Aminotransferase (ALT/SGPT) 40 U/L (12-78) Alkaline Phosphatase 112 U/L (46-116) Total Protein 6.7 G/DL (6.4-8.2) Albumin 3.2 G/DL (3.4-5.0) L Globulin 3.5 g/dL Albumin/Globulin Ratio 0.9 (1.0-2.7) L Lipase 34 U/L (73-393) L Meds Medications (Trade) Dose Ordered Sig/Rudi Route PRN Reason Start Time Stop Time Status Last Admin Dose Admin Dextrose/Sodium Chloride 1,000 ml @ 75 mls/hr [id number] IV 09/16/18 21:30 10/16/18 21:29 09/16/18 22:20 Diphenhydramine HCl (Benadryl) 50 mg Q6H PRN IVP Itching 09/16/18 21:15 10/16/18 21:14 09/17/18 04:15 Hydromorphone HCl (Dilaudid) 2 mg Q6H PRN IVP severe pain (7-10) 09/17/18 10:52 09/24/18 10:51 Bath Carbonate (Bath Carbonate) 150 mg DAILY ORAL 09/17/18 09:00 10/17/18 08:59 09/17/18 09:32 Lorazepam (Ativan) 2 mg BID ORAL 09/17/18 09:00 09/24/18 08:59 09/17/18 09:33 Ondansetron HCl (Zofran) 4 mg Q6H PRN IVP Nausea & Vomiting 09/16/18 19:30 2/15/19 19:29 09/16/18 19:27 Ondansetron HCl (Zofran) 4 mg Q6H PRN IVP Nausea & Vomiting 09/16/18 21:30 10/16/18 21:29 Pantoprazole (Protonix) 40 mg BID IVP 09/17/18 09:00 10/17/18 08:59 09/17/18 09:33 Quetiapine Fumarate (SEROquel) 50 mg BEFORE BREAKFAST ORAL 09/17/18 06:30 10/17/18 06:29 09/17/18 06:50 Quetiapine Fumarate (SEROquel) 300 mg QHS ORAL 09/16/18 22:15 10/16/18 22:14 09/16/18 22:15 Sertraline HCl (Zoloft) 200 mg ACBREAKFAST ORAL 09/17/18 06:30 10/17/18 06:29 09/17/18 06:51 Zolpidem Tartrate (Ambien) 5 mg BEDTIME ORAL 09/16/18 22:00 09/24/18 20:59 09/16/18 22:15 Assessment and Recs: # Pancytopenia with a history of chronic pancreatitis, cystic fibrosis, liver cirrhosis, and having appendectomy, cholecystectomy, splenectomy, and total pancreatectomy with total islet transplant as per patient. --> obtain hepatitis panel and hiv since first time here --> may consider a us abdomen though architecture to be altered given trasplant , and Whipple like surgery --> continue pancrealipase, creon, she takes as outpatient --> consider neupogen, procrit, transfusion but only on a prn basis --> obtain anemia w/u has been ordered # Anemia due to UGI bleed with a biopsy that shows gastritis --> appreciate gi recommendations --> closely monitor and trend as needed # Epigastric pain likely due to bleeding --> continue on ivf --> ppi bid The timing of this note does not necessarily reflect the time of the patient was seen Greatly appreciate consultation! Efrain Veloz MD Sep 17, 2018 13:03
--- NOTE | 2018-09-17 13:09 | Anethesia Preoperative Eval ---
Anesthesia Pre-op PMH/ROS General Date of Evaluation: Sep 17, 2018 Time of Evaluation: 12:29 Anesthesiologist: mervin ASA Score: ASA 3 Mallampati Score Class I : Soft palate, uvula, fauces, pillars visible Class II: Soft palate, uvula, fauces visible Class III: Soft palate, base of uvula visible Class IV: Only hard plate visible Mallampati Classification: Class II Surgeon: freida Diagnosis: gi bleed Surgical Procedure: egd Anesthesia History: none Social History: smoking - nonsmoker Family History: no anesthesia problems Allergies: Coded Allergies: CHLORHEXIDINE (Verified Allergy, Unknown, Rash, 09/16/18) Medications: see eMAR Patient NPO?: Yes Past Medical History Gastrointestinal/Genitourinary: Reports: other - pancreatits, cirrhosis Neurologic/Psychiatric: Reports: depression/anxiety Anesthesia Pre-op Phys. Exam Physician Exam Last Vital Signs Date Time Temp Pulse Resp B/P (MAP) Pulse Ox O2 Delivery O2 Flow Rate FiO2 09/17/18 04:00 Room Air 09/17/18 04:00 96.3 76 16 98/57 (71) 99 Constitutional: NAD Neurologic: CN 2-12 intact Cardiovascular: RRR Respiratory: CTA Gastrointestinal: S/NT/ND Airway Exam Mallampati Score: Class II MO: limited Neck: flexible TMD: 2fb ROM: limited Anesthesia Pre-op A/P Labs Hematology Test 09/16/18 16:25 White Blood Count 4.4 K/UL (4.8-10.8) L Red Blood Count 3.53 M/UL (4.20-5.40) L Hemoglobin 8.8 G/DL (12.0-16.0) L Hematocrit 28.4 % (37.0-47.0) L Mean Corpuscular Volume 80 FL (80-99) Mean Corpuscular Hemoglobin 25.1 PG (27.0-31.0) L Mean Corpuscular Hemoglobin Concent 31.2 G/DL (32.0-36.0) L Red Cell Distribution Width 17.2 % (11.6-14.8) H Platelet Count 108 K/UL (150-450) L Mean Platelet Volume 9.3 FL (6.5-10.1) Neutrophils (%) (Auto) 53.6 % (45.0-75.0) Lymphocytes (%) (Auto) 35.4 % (20.0-45.0) Monocytes (%) (Auto) 7.9 % (1.0-10.0) Eosinophils (%) (Auto) 2.3 % (0.0-3.0) Basophils (%) (Auto) 0.8 % (0.0-2.0) Coagulation Test 09/16/18 16:25 Prothrombin Time 11.4 SEC (9.30-11.50) Prothromb Time International Ratio 1.1 (0.9-1.1) Activated Partial Thromboplast Time 99 SEC (23-33) H Chemistry Test 09/16/18 16:25 Sodium Level 137 MMOL/L (136-145) Potassium Level 3.9 MMOL/L (3.5-5.1) Chloride Level 105 MMOL/L (98-107) Carbon Dioxide Level 25 MMOL/L (21-32) Anion Gap 7 mmol/L (5-15) Blood Urea Nitrogen 7 mg/dL (7-18) Creatinine 0.7 MG/DL (0.55-1.30) Estimat Glomerular Filtration Rate > 60 mL/min (>60) Glucose Level 99 MG/DL (74-106) Calcium Level 8.3 MG/DL (8.5-10.1) L Total Bilirubin 0.3 MG/DL (0.2-1.0) Aspartate Amino Transf (AST/SGOT) 35 U/L (15-37) Alanine Aminotransferase (ALT/SGPT) 40 U/L (12-78) Alkaline Phosphatase 112 U/L (46-116) Total Protein 6.7 G/DL (6.4-8.2) Albumin 3.2 G/DL (3.4-5.0) L Globulin 3.5 g/dL Albumin/Globulin Ratio 0.9 (1.0-2.7) L Lipase 34 U/L (73-393) L Urine Test Test 09/16/18 16:25 Urine HCG, Qualitative Negative (NEGATIVE) Risk Assessment & Plan Assessment: asa3 Plan: mac Status Change Before Surgery: No Pre-Antibiotics Drug: Addis Orlando MD Sep 17, 2018 13:09
--- NOTE | 2018-09-17 13:58 | History & Physical ---
History and Physical History & Physicial seen and examined. Full Dictation completed. Otf Gama MD Sep 17, 2018 13:58
--- NOTE | 2018-09-17 13:58 | General Progress Note ---
Assessment/Plan Assessment/Plan S: I have lots of pain O: appears in no distress, tolerating the PO clear liquid PHYSICAL EXAMINATION: HEAD AND NECK: Atraumatic and normocephalic. CHEST: Clear to auscultation. No wheezing. No crackles. HEART: S1 and S2. Regular rate and rhythm. ABDOMEN: Soft. No organomegaly. Positive for scars from prior surgery. Positive for tenderness in the upper abdomen. NEUROLOGIC: Awake, alert, and oriented x3. MUSCULOSKELETAL: No gross lateralized motor deficit. Meds: reviewed and reconciled, including Dilaudid-IV ASSESSMENT AND PLAN: 1. Upper GI bleed. source!? ( GE-junction , Oropharyngeal !) Hgb remains stable 2. Esophageal varices ( unverified history). 3. Chronic pain. 4. Pancytopenia. 5. Cystic Fibrosis: with TPN and outpatient management 5. GI and DVT prophylaxis. PLAN OF CARE: 1- Post EGD 2- Will advance to Dilaudid PRN, and DC Morphin Subjective Allergies: Coded Allergies: CHLORHEXIDINE (Verified Allergy, Unknown, Rash, 09/16/18) Objective Last 24 Hour Vital Signs Date Time Temp Pulse Resp B/P (MAP) Pulse Ox O2 Delivery O2 Flow Rate FiO2 09/17/18 13:33 63 18 104/65 97 Nasal Cannula 2 09/17/18 13:25 64 18 109/72 97 Nasal Cannula 2 09/17/18 13:20 72 18 114/78 97 Nasal Cannula 2 09/17/18 13:15 97.2 82 18 117/84 97 Nasal Cannula 2 09/17/18 11:52 78 09/17/18 04:00 Room Air 09/17/18 04:00 96.3 76 16 98/57 (71) 99 09/17/18 03:37 68 09/17/18 00:00 Room Air 09/17/18 00:00 98.2 80 18 101/64 (76) 100 09/16/18 23:14 82 09/16/18 20:01 Room Air 09/16/18 20:00 98.1 87 18 118/85 (96) 100 09/16/18 19:00 98.1 85 18 100/63 99 Room Air 09/16/18 16:03 98.1 83 18 100/63 99 Room Air 09/16/18 16:03 91 18 Room Air 09/16/18 15:57 98.1 91 18 100/63 99 Room Air Intake and Output 09/16/18 09/17/18 19:00 07:00 Intake Total 1260 ml Balance 1260 ml Intake Oral 60 ml IV Total 950 ml Blood Product 250 ml # Voids 1 4 Laboratory Tests 09/16/18 16:25: White Blood Count 4.4L, Red Blood Count 3.53L, Hemoglobin 8.8L, Hematocrit 28.4L , Mean Corpuscular Volume 80, Mean Corpuscular Hemoglobin 25.1L, Mean Corpuscular Hemoglobin Concent 31.2L, Red Cell Distribution Width 17.2H, Platelet Count 108L, Mean Platelet Volume 9.3, Neutrophils (%) (Auto) 53.6, Lymphocytes (%) (Auto) 35.4, Monocytes (%) (Auto) 7.9, Eosinophils (%) (Auto) 2.3, Basophils (%) (Auto) 0.8, Prothrombin Time 11.4, Prothromb Time International Ratio 1.1, Activated Partial Thromboplast Time 99H, Urine Color Pale yellow, Urine Appearance Clear, Urine pH 5, Urine Specific [place] 1.015, Urine Protein Negative, Urine Glucose (UA) Negative, Urine Ketones Negative, Urine Blood Negative, Urine Nitrite Negative, Urine Bilirubin Negative, Urine Urobilinogen Normal, Urine Leukocyte Esterase 1+H, Urine RBC 0-2, Urine WBC 2-4 , Urine Squamous Epithelial Cells Few, Urine Bacteria Few, Urine HCG, Qualitative Negative, Sodium Level 137, Potassium Level 3.9, Chloride Level 105 , Carbon Dioxide Level 25, Anion Gap 7, Blood Urea Nitrogen 7, Creatinine 0.7, Estimat Glomerular Filtration Rate > 60, Glucose Level 99, Calcium Level 8.3L, Total Bilirubin 0.3, Aspartate Amino Transf (AST/SGOT) 35, Alanine Aminotransferase (ALT/SGPT) 40, Alkaline Phosphatase 112, Total Protein 6.7, Albumin 3.2L, Globulin 3.5, Albumin/Globulin Ratio 0.9L, Lipase 34L Height (Feet): 5 Height (Inches): 2.00 Weight (Pounds): 105 Otf Gama MD Sep 17, 2018 13:58
--- NOTE | 2018-09-17 14:30 | NUR ---
NURSE NOTES: Patient asking for the pain medication order to be changed to 2mg dilaudid and benedryl every 4 hours or increase the dosage. Patient reports that her pain is not well controlled. Natan notified but he does not want to change medication dosage at this time. Left message for Dr Keating. Awaiting call back at this time.
--- NOTE | 2018-09-17 16:00 | NUR ---
NURSE NOTES: Called and left message for Dr Keating again regarding pain medication dosage change request. Awaiting call back.
--- NOTE | 2018-09-17 16:27 | NUR ---
CASE MANAGEMENT: REVIEW BIBA FROM HOME CC: VOMITING SI: UPPER GI BLEED T 98.1 HR 87 RR 18 BP 100/63 SAT 99% ROOM AIR WBC 4.4 H/H 8.8/28.4 IS: SANDOSTATIN IV X1 BENADRYL IV X1 DILAUDID IV X1 PROTONIX IV X1 ZOFRAN IV X1 NS IVF BOLUS X1 INTERQUAL CRITERIA MET: PATIENT ADMITTED TO STEP DOWN UNIT 09/16/2017 DCP: PATIENT IS FROM HOME CASE MANAGEMENT: REVIEW SI: UPPER GI BLEED EGD 09/17 T 97.2 HR 82 RR 18 BP 98/57 SAT 97% NC/2L IS: PROTONIX IV BID LITHIUM PO QD D5 NS IVF @ 75ML/HR STEP DOWN UNIT STATUS DCP: PATIENT IS FROM HOME
--- NOTE | 2018-09-17 17:30 | NUR ---
NURSE NOTES: Patient asking for full liquid diet since she does not feel that she can tolerate regular diet at this time. WIRE RIGGER Luis agreed. Diet will be changed at this time.
[2018-09-17] MEDS ORDERED: cefOXitin Sod 2 GM in D5W 110 ML IVPB SCH (18:00)
--- NOTE | 2018-09-17 18:00 | NUR ---
NURSE NOTES: Patient still asking about changing the pain medication dosage or frequency. Pain remains uncontrolled. Still awaiting call back from pain management doctor.
--- NOTE | 2018-09-17 18:22 | Immediate Post-Op Evaluation ---
Immediate Post-Op Evalulation Immediate Post-Op Evalulation Procedure: egd/bx Date of Evaluation: Sep 17, 2018 Time of Evaluation: 13:27 IV Fluids: 250ml 0.9ns Blood Products: none Estimated Blood Loss: negligible Blood Pressure Systolic: 117 Blood Pressure Diastolic: 84 Pulse Rate: 82 Respiratory Rate: 18 O2 Sat by Pulse Oximetry: 97 Temperature (Fahrenheit): 97.2 Pain Score (1-10): 0 Nausea: No Vomiting: No Complications none Patient Status: awake, reacts, patent Hydration Status: adequate Drug: Addis Orlando MD Sep 17, 2018 18:22
--- NOTE | 2018-09-17 18:24 | 48 Hour Post Anesthesia Eval ---
Post Anesthesia Evaluation Procedure: egd/bx Date of Evaluation: Sep 17, 2018 Time of Evaluation: 13:29 Blood Pressure Systolic: 109 0: 72 Pulse Rate: 64 Respiratory Rate: 18 Temperature (Fahrenheit): 97.2 O2 Sat by Pulse Oximetry: 97 Airway: patent Nausea: No Vomiting: No Pain Intensity: 0 Hydration Status: adequate Cardiopulmonary Status: stable Mental Status/LOC: patient returned to baseline Post-Anesthesia Complications: none Follow-up care needed: N/A Addis Aaron MD Sep 17, 2018 18:24
--- NOTE | 2018-09-17 19:20 | NUR ---
HAND-OFF: Report given to BEN Bhatti. Patient VS stable at this time. Patient in a great deal of pain at this time. Pain medication has been given around the clock as permited per the order. Pain is not well controlled. Doctor notified but no change of dosage or frequency has been ordered at this time. Endorsed to follow up and ask doctor again.
--- NOTE | 2018-09-17 19:30 | NUR ---
NURSE NOTES: report received from BEN Davis. Observed pt lying on bed. Noted pt c/o pain at this time and prn pain med given noted. Will continue to monitor pain. SR with hospital receptionist. Right chest perma cath, intact and patent. Bed in the lowest position. Side rails up x2. Call light within reach. Will continue to monitor.
[2018-09-17] MEDS ORDERED: QUEtiapine 200mg tab ORAL SCH (21:00)
[2018-09-17] MEDS ORDERED: Zolpidem 5mg tab ORAL SCH (21:00)
--- NOTE | 2018-09-17 21:45 | NUR ---
NURSE NOTES: Left a message to per pt request regarding prn pain med dose and frequency. Awaiting call back.
[2018-09-17] MEDS: Zolpidem 5mg tab ORAL SCH (21:50)
--- NOTE | 2018-09-17 22:00 | History and Physical Report ---
DATE OF ADMISSION: 09/16/2018 SOURCE OF INFORMATION: Patient and EMR. HISTORY OF PRESENT ILLNESS: The patient is a misfortunate 23-year-old female with history of chronic pancreatitis secondary to cystic fibrosis. The patient is status post partial pancreas resection and receiving the chronic pain medications as an outpatient. The patient had a prior history of upper GI bleed due to gastric varices. At the time of evaluation, the patient presented to the emergency room with the upper GI bleed, at least two episodes for the last two days in a row. Initial evaluation in the emergency room shows the patient has stable vital signs. The patient's hemoglobin remained borderline and did not require or receive any transfusion. The patient's pain was reportedly uncontrolled, for which the patient received pain medication. PAST MEDICAL HISTORY: Including, but not limited to, cystic fibrosis and chronic pancreatitis. PAST MEDICAL AND SURGICAL HISTORY: Cystic fibrosis, partial pancreatic resection, Swathi-Danielle tears, esophageal varices, and chronic pancreatitis. HOME MEDICATIONS: Including but not limited to lithium, Seroquel, Zoloft, and zolpidem. PHYSICAL EXAMINATION: VITAL SIGNS: Blood pressure 100/60, temperature 98.2, pulse oximetry 98% on room air, and pulse rate 91. HEAD AND NECK: Atraumatic and normocephalic. CHEST: Clear to auscultation. No wheezing. No crackles. HEART: S1 and S2. Regular rate and rhythm. ABDOMEN: Soft. No organomegaly. Positive for scars from prior surgery. Positive for tenderness in the upper abdomen. NEUROLOGIC: Awake, alert, and oriented x3. MUSCULOSKELETAL: No gross lateralized motor deficit. LABORATORY DATA: Dated 09/16/2018 showed WBC 4.4, hemoglobin 8.8, and platelets of 100. Sodium 137, potassium 3.9, BUN 7, creatinine 0.7, and lipase of 34. ASSESSMENT AND PLAN: 1. Upper GI bleed. 2. Esophageal varices (Diagnosis in progress). 3. Chronic pain. 4. Pancytopenia. 5. GI and DVT prophylaxis. PLAN OF CARE: GI, Hematology-Oncology, and pain management have been consulted. Okay to start the patient on Dilaudid IV on a p.r.n. basis. We will follow the pain management service. Newtonammad Casa Gama DR: NEAL JOB#: [id number] CC: MIKE
--- NOTE | 2018-09-17 22:45 | Procedure Note ---
DATE OF PROCEDURE: 09/17/2018 SURGEON: Gary Pollock M.D. ANESTHESIOLOGIST: Dr. Byrnes. PROCEDURE: Upper endoscopy with biopsy. ANESTHESIA: Per Dr. Byrnes. INSTRUMENT: Olympus adult flexible upper endoscope. INDICATION: Upper GI bleeding. The procedure, risks, benefits, and possible consequences, including hemorrhage, aspiration, perforation and infection, and alternative treatments, were explained to the patient/legal guardian by Dr. Gary Pollock and the patient/legal guardian understood and accepted these risks. DESCRIPTION OF PROCEDURE: After informed consent was obtained and the patient was adequately sedated, the Olympus upper endoscope was advanced from the mouth into the second portion of the duodenum and retroflexion was performed in the stomach. The patient had evidence of blood tingling in the oropharynx, then the scope was advanced to the esophagus. There was evidence of white peeling off of the mucosa at the GE junction suggestive of esophagitis, but no active bleeding and no Swathi-Danielle tear was seen. In the stomach, there was some blood which seems to be fresh, seems from the oropharynx. We suctioned, washed the blood out, and there was no active bleeding in the stomach per se. There were no ulcerations. There was no obvious bleeding in the stomach. There was no AVM unless there is a Dieulafoy lesion that stopped bleeding while we were in there, but there is no evidence of obvious bleeding at this time. Then, the scope was advanced to the duodenal bulb and second portion of duodenum and everything looked okay. There was no obvious bleeding in the duodenum. At this point, we randomly biopsied the antrum to rule out H. pylori infection and the scope was successfully retrieved. SUMMARY OF FINDINGS: 1. Fresh blood seen in the oropharynx and in the stomach suspicious for mouth bleeding causing GI bleeding. 2. Some peeling off of the mucosa at the GE junction suggestive of reflux disease and esophagitis. 3. Gastritis, status post biopsy. RECOMMENDATIONS: 1. Continue on PPI. 2. The patient might benefit from ENT consultation or maybe an oral surgeon for evaluation of the mouth bleeding. 3. We are going to advance diet. 4. Monitor hemoglobin and hematocrit. 5. Transfuse as needed. I want to thank, Dr. Gama, for this kind referral. Gary Pollock M.D. DR: GONZALEZ JOB#: [id number] CC: Otf Gama M.D.; Fax#: [phone]
[2018-09-18] VITALS (7 sets, daily range): BP systolic 92–124; BP diastolic 58–81
[2018-09-18] MEDS: D5NS 1,000 ML IV SCH ×3 (00:15→21:37)
--- NOTE | 2018-09-18 00:34 | NUR ---
NURSE NOTES: Observed pt sleeping on the bed. No facial grimacing and moaning noted at this time. Pt is calm and sleeping.
[2018-09-18] MEDS: DiphenhydrAMINE 50mg/ml Inj IVP PRN ×4 (05:01→22:54)
[2018-09-18] MEDS: Sertraline 100mg tab ORAL SCH (07:08)
--- NOTE | 2018-09-18 07:30 | NUR ---
HAND-OFF: Report given to BEN La. No acute distress noted at this time.
--- NOTE | 2018-09-18 07:35 | NUR ---
NURSE NOTES: Received report from Kika Fields RN. Patient asleep in bed. Receiving O2 via nasal cannula @ 4L/min, respirations even and unlabored. Right chest portacath infusing D5NS @ 75 cc/hr, asymptomatic. Bed locked in lowest position with side rails up x 2. Call light within reach. Will continue to monitor.
[2018-09-18 07:38] LABS: BASOPHILS % (AUTO) 0.5 % (0.0-2.0); EOSINOPHILS % (AUTO) 2.6 % (0.0-3.0); HEMATOCRIT 38.4 % (37.0-47.0); HEMOGLOBIN 12.4 G/DL (12.0-16.0); LYMPHOCYTES % (AUTO) 28.9 % (20.0-45.0); MEAN CORPUSCULAR VOLUME 82 FL (80-99); MONOCYTES % (AUTO) 9.5 % (1.0-10.0); NEUTROPHILS % (AUTO) 58.4 % (45.0-75.0); PLATELET COUNT 115 K/UL (150-450); RED BLOOD COUNT 4.65 M/UL (4.20-5.40); RED CELL DISTRIBUTION WIDTH 16.7 % (11.6-14.8); WHITE BLOOD COUNT 3.8 K/UL (4.8-10.8)
--- NOTE | 2018-09-18 07:45 | NUR ---
TRANSFER TO FLOOR: Patient transferred to med-surg room 315-1, per Dr. Gama. Report given to Jose Arauz RN. Belongings and medications given to receiving nurse.
--- NOTE | 2018-09-18 08:00 | NUR ---
NURSE NOTES: Received patient in bed, resting and alert X4. No signs of respiratory distress, patient in 4L NC. R chest port a cath intact and fluids running. Belongings verified with KAELYN RN on transfer. Bed in lowest position, call light within reach. Will continue to monitor.
[2018-09-18 08:01] LABS: ANION GAP 7 mmol/L (5-15); BLOOD UREA NITROGEN 8 mg/dL (7-18); CALCIUM 8.7 MG/DL (8.5-10.1); CARBON DIOXIDE 29 MMOL/L (21-32); CHLORIDE 104 MMOL/L (98-107); CREATININE 0.8 MG/DL (0.55-1.30); POTASSIUM 3.7 MMOL/L (3.5-5.1); SODIUM 140 MMOL/L (136-145)
[2018-09-18] MEDS: Pantoprazole Inj IVP SCH ×2 (08:23→18:05)
[2018-09-18] MEDS: LORazepam 1mg tab ORAL SCH ×2 (08:24→18:00)
[2018-09-18 08:43] LABS: BILIRUBIN,DIRECT 0.1 MG/DL (0.0-0.3); BILIRUBIN,TOTAL 0.5 MG/DL (0.2-1.0)
--- NOTE | 2018-09-18 09:54 | General Progress Note ---
Assessment/Plan Problem List: (1) Narcotic dependence ICD Codes: F11.20 - Opioid dependence, uncomplicated SNOMED: 21543244 (2) Epigastric pain ICD Codes: R10.13 - Epigastric pain SNOMED: 25870148 (3) UGI bleed ICD Codes: K92.2 - Gastrointestinal hemorrhage, unspecified SNOMED: 83882859 (4) liver c (5) Liver cirrhosis ICD Codes: K74.60 - Unspecified cirrhosis of liver SNOMED: 51413217 Assessment/Plan We will continue same dose of Dilaudid. Subjective Constitutional: Denies: no symptoms, chills, diaphoresis, fever, malaise, weakness, other HEENT: Denies: no symptoms, eye pain, blurred vision, tearing, double vision, ear pain, ear discharge, nose pain, nose congestion, throat pain, throat swelling, mouth pain, mouth swelling, other Cardiovascular: Denies: no symptoms, chest pain, edema, irregular heart rate, lightheadedness, palpitations, syncope, other Respiratory: Denies: no symptoms, cough, orthopnea, shortness of breath, SOB with excertion, SOB at rest, sputum, stridor, wheezing, other Gastrointestinal/Abdominal: Reports: abdominal pain Genitourinary: Denies: no symptoms, burning, discharge, frequency, flank pain, hematuria, incontinence, pain, urgency, other Neurologic/Psychiatric: Reports: anxiety, depressed, emotional problems Endocrine: Denies: no symptoms, excessive sweating, flushing, intolerance to cold, intolerance to heat, increased hunger, increased thirst, increased urine, unexplained weight gain, unexplained weight loss, other Allergies: Coded Allergies: CHLORHEXIDINE (Verified Allergy, Unknown, Rash, 09/16/18) Subjective Pt wants Dilaudid IV every 4 hors and I offered IVPB but she refused and wants to stay on same dose. Objective Last 24 Hour Vital Signs Date Time Temp Pulse Resp B/P (MAP) Pulse Ox O2 Delivery O2 Flow Rate FiO2 09/18/18 08:00 97.7 64 20 115/71 (86) 98 09/18/18 04:00 98.3 72 16 92/58 (69) 100 09/18/18 04:00 Room Air 09/18/18 04:00 62 09/18/18 00:00 Room Air 09/18/18 00:00 97.0 74 18 124/71 (88) 100 09/18/18 00:00 76 09/17/18 20:00 91 09/17/18 20:00 97.3 61 16 130/50 (76) 99 09/17/18 20:00 Room Air 09/17/18 18:24 64 18 97 09/17/18 18:22 82 18 97 09/17/18 16:00 Room Air 09/17/18 16:00 97.7 83 20 114/74 (87) 99 09/17/18 16:00 72 09/17/18 13:33 63 18 104/65 97 Nasal Cannula 2 09/17/18 13:25 64 18 109/72 97 Nasal Cannula 2 09/17/18 13:20 72 18 114/78 97 Nasal Cannula 2 09/17/18 13:15 97.2 82 18 117/84 97 Nasal Cannula 2 09/17/18 12:00 Room Air 09/17/18 12:00 78 09/17/18 11:52 78 Intake and Output 09/17/18 09/18/18 18:59 06:59 Intake Total 1255 ml 1560 ml Balance 1255 ml 1560 ml Intake Oral 480 ml 660 ml IV Total 775 ml 900 ml # Voids 5 1 Laboratory Tests 09/18/18 05:05: White Blood Count 3.8L, Red Blood Count 4.65, Hemoglobin 12.4, Hematocrit 38.4, Mean Corpuscular Volume 82, Mean Corpuscular Hemoglobin 26.7L, Mean Corpuscular Hemoglobin Concent 32.4, Red Cell Distribution Width 16.7H, Platelet Count 115L , Mean Platelet Volume 10.0, Neutrophils (%) (Auto) 58.4, Lymphocytes (%) (Auto ) 28.9, Monocytes (%) (Auto) 9.5, Eosinophils (%) (Auto) 2.6, Basophils (%) ( Auto) 0.5, Sodium Level 140, Potassium Level 3.7, Chloride Level 104, Carbon Dioxide Level 29, Anion Gap 7, Blood Urea Nitrogen 8, Creatinine 0.8, Estimat Glomerular Filtration Rate > 60, Glucose Level 113H, Calcium Level 8.7 09/18/18 05:07: Sickle Cell Screen [Pending], Haptoglobin [Pending], Ferritin 21, Total Bilirubin 0.5, Direct Bilirubin 0.1, Lactate Dehydrogenase 166, Folate 52.2, Thyroid Stimulating Hormone (TSH) 1.260, Hepatitis A IgM Antibody [Pending], Hepatitis B Surface Antigen [Pending], Hepatitis B Core IgM Antibody [Pending], Hepatitis C Antibody [Pending], HIV (1&2) Antibody Rapid Negative Height (Feet): 5 Height (Inches): 2.00 Weight (Pounds): 105 General Appearance: WD/WN, alert EENT: PERRL/EOMI Neck: non-tender Cardiovascular: normal rate Respiratory/Chest: lungs clear Abdomen: soft Extremities: non-tender Edema: no edema noted Arm (L), no edema noted Arm (R), no edema noted Leg (L), no edema noted Leg (R), no edema noted Pedal (L), no edema noted Pedal (R), no edema noted 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
[2018-09-18] MEDS: Lithium Carbonate 150mg cap ORAL SCH (10:15)
--- NOTE | 2018-09-18 14:30 | NUR ---
NURSE NOTES: Patient noted to have 1 episode small, red bloody emesis. BP 109/69, HR 82, RR 20 and SpO2 100%. Patient stated, "I feel fine", noted flat affect. Notified VIRIDIANA Smith who stated EGD only showed gastritis, bleeding likely oral bleeding, not GI related given small, 10cc amount. Patient continued to ask about pain medications being adjusted. Will call Dr. Keating's office again one patient stabilized.
--- NOTE | 2018-09-18 16:30 | NUR ---
NURSE NOTES: Patient noted to have 2 more episodes of red, bloody emesis with small clots. Blood noted to be around 10-20cc again. Patient stated this happened before when she had a maggie enrique tear that required a second, deeper EGD for it to be discovered. Notified Dr. Veloz who ordered for PPI to be continued; Luis had patient be NPO and labs for AM. Patient given zofran, repositioned, and provided comfort. Will continue to monitor.
--- NOTE | 2018-09-18 16:49 | General Progress Note ---
Assessment/Plan Assessment/Plan S: I have lots of pain O: appears in no distress, tolerating the PO clear liquid PHYSICAL EXAMINATION: HEAD AND NECK: Atraumatic and normocephalic. CHEST: Clear to auscultation. No wheezing. No crackles. HEART: S1 and S2. Regular rate and rhythm. ABDOMEN: Soft. No organomegaly. Positive for scars from prior surgery. Positive for tenderness in the upper abdomen. NEUROLOGIC: Awake, alert, and oriented x3. MUSCULOSKELETAL: No gross lateralized motor deficit. Meds: reviewed and reconciled, including Dilaudid-IV ASSESSMENT AND PLAN: 1. Upper GI bleed. source!? ( GE-junction , Oropharyngeal !) Hgb remains stable 2. Esophageal varices ( unverified history). 3. Chronic pain. 4. Pancytopenia. 5. Cystic Fibrosis: with TPN and outpatient management 5. GI and DVT prophylaxis. PLAN OF CARE: Once clear By GI- May followup as out patient Subjective Allergies: Coded Allergies: CHLORHEXIDINE (Verified Allergy, Unknown, Rash, 09/16/18) Objective Last 24 Hour Vital Signs Date Time Temp Pulse Resp B/P (MAP) Pulse Ox O2 Delivery O2 Flow Rate FiO2 09/18/18 14:22 82 18 109/69 (82) 99 09/18/18 12:00 97.9 68 20 118/74 (89) 99 09/18/18 09:00 Room Air 09/18/18 08:00 97.7 64 20 115/71 (86) 98 09/18/18 04:00 98.3 72 16 92/58 (69) 100 09/18/18 04:00 Room Air 09/18/18 04:00 62 09/18/18 00:00 Room Air 09/18/18 00:00 97.0 74 18 124/71 (88) 100 09/18/18 00:00 76 09/17/18 20:00 91 09/17/18 20:00 97.3 61 16 130/50 (76) 99 09/17/18 20:00 Room Air 09/17/18 18:24 64 18 97 09/17/18 18:22 82 18 97 Intake and Output 09/17/18 09/18/18 18:59 06:59 Intake Total 1255 ml 1560 ml Balance 1255 ml 1560 ml Intake Oral 480 ml 660 ml IV Total 775 ml 900 ml # Voids 5 1 Laboratory Tests 09/18/18 05:05: White Blood Count 3.8L, Red Blood Count 4.65, Hemoglobin 12.4, Hematocrit 38.4, Mean Corpuscular Volume 82, Mean Corpuscular Hemoglobin 26.7L, Mean Corpuscular Hemoglobin Concent 32.4, Red Cell Distribution Width 16.7H, Platelet Count 115L , Mean Platelet Volume 10.0, Neutrophils (%) (Auto) 58.4, Lymphocytes (%) (Auto ) 28.9, Monocytes (%) (Auto) 9.5, Eosinophils (%) (Auto) 2.6, Basophils (%) ( Auto) 0.5, Sodium Level 140, Potassium Level 3.7, Chloride Level 104, Carbon Dioxide Level 29, Anion Gap 7, Blood Urea Nitrogen 8, Creatinine 0.8, Estimat Glomerular Filtration Rate > 60, Glucose Level 113H, Calcium Level 8.7 09/18/18 05:07: Sickle Cell Screen [Pending], Haptoglobin [Pending], Ferritin 21, Total Bilirubin 0.5, Direct Bilirubin 0.1, Lactate Dehydrogenase 166, Folate 52.2, Thyroid Stimulating Hormone (TSH) 1.260, Hepatitis A IgM Antibody [Pending], Hepatitis B Surface Antigen [Pending], Hepatitis B Core IgM Antibody [Pending], Hepatitis C Antibody [Pending], HIV (1&2) Antibody Rapid Negative 09/18/18 10:20: Stool Occult Blood Positive Height (Feet): 5 Height (Inches): 2.00 Weight (Pounds): 105 Otf Gama MD Sep 18, 2018 16:49
--- NOTE | 2018-09-18 18:08 | NUR ---
CASE MANAGEMENT: REVIEW SI: UPPER GI BLEED EGD 09/17 T 97.3 HR 83 RR 20 BP 119/71 SAT 98% ROOM AIR WBC 3.8 IS: PROTONIX IV BID LITHIUM PO QD D5 NS IVF @ 75ML/HR NPO STEP DOWN UNIT STATUS DCP: PATIENT IS FROM HOME
--- NOTE | 2018-09-18 18:26 | NUR ---
NURSE NOTES: Called again for Dr. Keating regarding patient's request to receive 1 time pain medication dose for 10/10 pain in RLQ. Used relaxation techniques and provided comfort to patient. Will continue to monitor.
--- NOTE | 2018-09-18 19:30 | NUR ---
NURSE NOTES: Received pt. and report from BEN Bedoya. Observe pt. resting in bed and watching TV. Pt. has a central line access; Rt chest rama cath. Bed is in the lowest position and locked, call light within reach. Day shift RN endorsed that pt. had 2 episodes of bloody emesis. Dr. Veloz was notified. No acute distress noted at this time. Will continue plan of care.
--- NOTE | 2018-09-18 19:40 | NUR ---
HAND-OFF: Report given to BEN Rivera.
--- NOTE | 2018-09-18 20:37 | General Progress Note ---
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 --> obtain hepatitis panel and hiv since first time here --> may consider a us abdomen though architecture to be altered given trasplant , and Whipple like surgery --> continue pancrealipase, creon, she takes as outpatient --> consider neupogen, procrit, transfusion but only on a prn basis --> DOES HAVE IRON DEIFICIENCY, if hgb lower start on iv iron # Anemia due to UGI bleed with a biopsy that shows gastritis --> appreciate gi recommendations --> closely monitor and trend as needed # Epigastric pain likely due to bleeding --> egd results reviewed --> continue on ivf --> ppi bid The timing of this note does not necessarily reflect the time of the patient was seen Greatly appreciate consultation! Subjective Constitutional: Denies: no symptoms, chills, diaphoresis, fever, malaise, weakness, other HEENT: Denies: no symptoms, eye pain, blurred vision, tearing, double vision, ear pain, ear discharge, nose pain, nose congestion, throat pain, throat swelling, mouth pain, mouth swelling, other Cardiovascular: Denies: no symptoms, chest pain, edema, irregular heart rate, lightheadedness, palpitations, syncope, other Respiratory: Denies: no symptoms, cough, orthopnea, shortness of breath, SOB with excertion, SOB at rest, sputum, stridor, wheezing, other Gastrointestinal/Abdominal: Denies: no symptoms, abdomen distended, abdominal pain, black stools, tarry stools, blood in stool, constipated, diarrhea, difficulty swallowing, nausea, poor appetite, poor fluid intake, rectal bleeding , vomiting, other Genitourinary: Denies: no symptoms, burning, discharge, frequency, flank pain, hematuria, incontinence, pain, urgency, other Neurologic/Psychiatric: Denies: no symptoms, anxiety, depressed, emotional problems, headache, numbness, paresthesia, pre-existing deficit, seizure, tingling, tremors, weakness, other Hematologic/Lymphatic: Denies: no symptoms, anemia, easy bleeding, easy bruising, other Allergies: Coded Allergies: CHLORHEXIDINE (Verified Allergy, Unknown, Rash, 09/16/18) Subjective 09/18: blood clots were vomited today and started her on a ppi, seen by gi Objective Last 24 Hour Vital Signs Date Time Temp Pulse Resp B/P (MAP) Pulse Ox O2 Delivery O2 Flow Rate FiO2 09/18/18 16:00 97.3 83 20 119/71 (87) 98 09/18/18 14:22 82 18 109/69 (82) 99 09/18/18 12:00 97.9 68 20 118/74 (89) 99 09/18/18 09:00 Room Air 09/18/18 08:00 97.7 64 20 115/71 (86) 98 09/18/18 04:00 98.3 72 16 92/58 (69) 100 09/18/18 04:00 Room Air 09/18/18 04:00 62 09/18/18 00:00 Room Air 09/18/18 00:00 97.0 74 18 124/71 (88) 100 09/18/18 00:00 76 Intake and Output 09/17/18 09/18/18 19:00 07:00 Intake Total 1330 ml 1485 ml Balance 1330 ml 1485 ml Intake Oral 480 ml 660 ml IV Total 850 ml 825 ml # Voids 5 1 Laboratory Tests 09/18/18 05:05: White Blood Count 3.8L, Red Blood Count 4.65, Hemoglobin 12.4, Hematocrit 38.4, Mean Corpuscular Volume 82, Mean Corpuscular Hemoglobin 26.7L, Mean Corpuscular Hemoglobin Concent 32.4, Red Cell Distribution Width 16.7H, Platelet Count 115L , Mean Platelet Volume 10.0, Neutrophils (%) (Auto) 58.4, Lymphocytes (%) (Auto ) 28.9, Monocytes (%) (Auto) 9.5, Eosinophils (%) (Auto) 2.6, Basophils (%) ( Auto) 0.5, Sodium Level 140, Potassium Level 3.7, Chloride Level 104, Carbon Dioxide Level 29, Anion Gap 7, Blood Urea Nitrogen 8, Creatinine 0.8, Estimat Glomerular Filtration Rate > 60, Glucose Level 113H, Calcium Level 8.7 09/18/18 05:07: Sickle Cell Screen [Pending], Haptoglobin [Pending], Ferritin 21, Total Bilirubin 0.5, Direct Bilirubin 0.1, Lactate Dehydrogenase 166, Folate 52.2, Thyroid Stimulating Hormone (TSH) 1.260, Hepatitis A IgM Antibody [Pending], Hepatitis B Surface Antigen [Pending], Hepatitis B Core IgM Antibody [Pending], Hepatitis C Antibody [Pending], HIV (1&2) Antibody Rapid Negative 09/18/18 10:20: Stool Occult Blood Positive Height (Feet): 5 Height (Inches): 2.00 Weight (Pounds): 105 Objective General Appearance: A+O x3, NAD HEENT: normocephalic, atraumatic Neck: non-tender, normal alignment Respiratory/Chest: chest wall non-tender, lungs clear Cardiovascular/Chest: normal peripheral pulses, normal rate Abdomen: normal bowel sounds, non tender ++ scars on abd Extremities: normal range of motion Efrain Veloz MD Sep 18, 2018 20:37
[2018-09-18] MEDS: Zolpidem 5mg tab ORAL SCH (21:36)
[2018-09-19] VITALS: BP 95/62
[2018-09-19 04:00] VITALS: BP 113/66
[2018-09-19 05:53] LABS: HEMATOCRIT 34.1 % (37.0-47.0); MEAN CORPUSCULAR VOLUME 82 FL (80-99); PLATELET COUNT 73 K/UL (150-450); RED BLOOD COUNT 4.17 M/UL (4.20-5.40); RED CELL DISTRIBUTION WIDTH 16.3 % (11.6-14.8); WHITE BLOOD COUNT 3.4 K/UL (4.8-10.8)
[2018-09-19] MEDS: DiphenhydrAMINE 50mg/ml Inj IVP PRN ×4 (05:54→23:59)
[2018-09-19 06:14] LABS: ANION GAP 5 mmol/L (5-15); BLOOD UREA NITROGEN 5 mg/dL (7-18); CALCIUM 7.8 MG/DL (8.5-10.1); CARBON DIOXIDE 29 MMOL/L (21-32); CHLORIDE 106 MMOL/L (98-107); CREATININE 0.7 MG/DL (0.55-1.30); POTASSIUM 3.6 MMOL/L (3.5-5.1); SODIUM 140 MMOL/L (136-145)
[2018-09-19] MEDS: Sertraline 100mg tab ORAL SCH (06:52)
--- NOTE | 2018-09-19 07:52 | NUR ---
HAND-OFF: Report given to Cary Alvares RN. Plan of care endorsed.
--- NOTE | 2018-09-19 07:55 | NUR ---
NURSE NOTES: Received patient in bed,asleep @ this time. Breathing is even and unlabored. Port a cath intact and IVF running @ this time. Bed is in lowest position and locked. Will continue plan of care.
[2018-09-19 08:00] VITALS: BP 102/64
--- NOTE | 2018-09-19 08:55 | NUR ---
NURSE NOTES: Patient is in the restroom @ this time.
--- NOTE | 2018-09-19 09:05 | NUR ---
NURSE NOTES: Patient is in bed and stated that patient vomited x1 in the restroom earlier and she did not call RN and flushed. She states that " It is darker and some blood clots and my throat hurts." Will continue to monitor. No vomiting @ this time. She denies nausea. RN placed call to Dr. Aburto to informed episodes of vomiting. Awaiting for return call.
--- NOTE | 2018-09-19 09:10 | NUR ---
NURSE NOTES: Dr. Pollock said to call Dr. Arizmendi who is covering for Dr. Pollock.Dr. Arizmendi in the facility. Overhead paged Dr. Arizmendi.
--- NOTE | 2018-09-19 09:25 | NUR ---
NURSE NOTES: Patient was seen by Dr. Arizmendi and Doctor saw the bloody emesis in the bin. RN received new order. Will continue to monitor.
[2018-09-19] MEDS: Pantoprazole Inj IVP SCH ×2 (10:01→17:59)
[2018-09-19] MEDS: Lithium Carbonate 150mg cap ORAL SCH (10:01)
[2018-09-19] MEDS: LORazepam 1mg tab ORAL SCH ×2 (10:01→18:00)
[2018-09-19] MEDS: D5NS 1,000 ML IV SCH ×2 (10:02→18:07)
--- NOTE | 2018-09-19 11:18 | NUR ---
CASE MANAGEMENT: REVIEW 09/19/2018 SI: UPPER GI BLEED EGD 09/17 T 97.5 HR 73 RR 19 B/P 102/64 SATS 100% ON RA WBC 3.4 BUN 5 GLU 145 CA 7.8 IS: PROTONIX IV BID LITHIUM PO QD D5 NS IVF @ 75ML/HR STEP DOWN UNIT STATUS DCP: PATIENT IS FROM HOME
[2018-09-19 12:00] VITALS: BP 142/68
--- NOTE | 2018-09-19 12:06 | General Progress Note ---
Assessment/Plan Status: stable Assessment/Plan S: I have lots of pain O: appears in no distress, tolerating the PO clear liquid, reported an incident of Hemoptysis this AM,Keep requesting increase in frequency of IV dilaudid PHYSICAL EXAMINATION: HEAD AND NECK: Atraumatic and normocephalic. CHEST: Clear to auscultation. No wheezing. No crackles. HEART: S1 and S2. Regular rate and rhythm. ABDOMEN: Soft. No organomegaly. Positive for scars from prior surgery. Positive for tenderness in the upper abdomen. NEUROLOGIC: Awake, alert, and oriented x3. MUSCULOSKELETAL: No gross lateralized motor deficit. PSych: mood and affect is anxious Meds: reviewed and reconciled, including Dilaudid-IV ASSESSMENT AND PLAN: 1. Hemoptysis: upper glottis, vs Upper GI bleed. source!? ( GE-junction , Laryngo/Oropharyngeal !) Hgb remains stable 2. Cirrhosis ( unverified history) 3. Chronic pain. 4. Pancytopenia. 5. Cystic Fibrosis: with TPN and outpatient management 5. GI and DVT prophylaxis. PLAN OF CARE: Current GI workup in [facility], status post EGD ENT workup - Dr Cardenas , in progress Subjective Allergies: Coded Allergies: CHLORHEXIDINE (Verified Allergy, Unknown, Rash, 09/16/18) Objective Last 24 Hour Vital Signs Date Time Temp Pulse Resp B/P (MAP) Pulse Ox O2 Delivery O2 Flow Rate FiO2 09/19/18 09:00 Room Air 09/19/18 08:00 97.5 73 19 102/64 (77) 100 09/19/18 04:00 97.9 76 18 113/66 (82) 100 09/19/18 00:00 98.0 71 19 95/62 (73) 100 09/18/18 21:00 Room Air 09/18/18 20:00 97.5 99 18 111/81 (91) 99 09/18/18 16:00 97.3 83 20 119/71 (87) 98 09/18/18 14:22 82 18 109/69 (82) 99 09/18/18 12:00 97.9 68 20 118/74 (89) 99 Intake and Output 09/18/18 09/19/18 19:00 07:00 Intake Total 2085 ml 900 ml Output Total 25 ml Balance 2060 ml 900 ml Intake Oral 1335 ml IV Total 750 ml 900 ml Output Emesis 25 ml # Voids 4 3 # Bowel Movements 2 Laboratory Tests 09/19/18 05:40: White Blood Count 3.4L, Red Blood Count 4.17L, Hemoglobin 11.0L, Hematocrit 34.1L, Mean Corpuscular Volume 82, Mean Corpuscular Hemoglobin 26.3L, Mean Corpuscular Hemoglobin Concent 32.1, Red Cell Distribution Width 16.3H, Platelet Count 73L, Mean Platelet Volume 8.9, Neutrophils (%) (Auto) , Lymphocytes (%) (Auto) , Monocytes (%) (Auto) , Eosinophils (%) (Auto) , Basophils (%) (Auto) , Differential Total Cells Counted 100, Neutrophils % ( Manual) 48, Lymphocytes % (Manual) 43, Monocytes % (Manual) 7, Eosinophils % ( Manual) 2, Basophils % (Manual) 0, Band Neutrophils 0, Platelet Estimate DecreasedL, Platelet Morphology Normal, Anisocytosis 1+, Sodium Level 140, Potassium Level 3.6, Chloride Level 106, Carbon Dioxide Level 29, Anion Gap 5, Blood Urea Nitrogen 5L, Creatinine 0.7, Estimat Glomerular Filtration Rate > 60 , Glucose Level 145H, Calcium Level 7.8L Height (Feet): 5 Height (Inches): 2.00 Weight (Pounds): 105 Otf Gama MD Sep 19, 2018 12:06
[2018-09-19 16:00] VITALS: BP 104/68
[2018-09-19] MEDS ORDERED: Albuterol/Ipratropium 3ml neb HHN PRN (16:45)
--- NOTE | 2018-09-19 17:30 | NUR ---
NURSE NOTES: Patient stated that she wanted to have liquid diet since she is not nauseous anymore. RN spoke to Dr. Arizmendi and let him know. Dr. Arizmendi said no food for now and increase IVF of D5NS to 100cc/hr. Order read back and carried out and patient is aware.
--- NOTE | 2018-09-19 18:37 | NUR ---
NURSE NOTES: RN faxed the authorization paper to [facility] medical records. Will endorse to follow up.
--- NOTE | 2018-09-19 18:59 | NUR ---
NURSE NOTES: Patient refused to take ativan. She says " I do not need it, now." Patient is calm @ this time.
--- NOTE | 2018-09-19 19:31 | General Progress Note ---
Assessment/Plan Assessment/Plan Assessment - GI Bleed vs oropharynx bleed - abd pain - N/V Recommendations - ATC compazine IV - PRN Zofran - Hold PO today - re Check H&H Subjective Allergies: Coded Allergies: CHLORHEXIDINE (Verified Allergy, Unknown, Rash, 09/16/18) Subjective above noted patient with a bucket, containing about 50 cc of red mucoid emesis c/o R sided abd pain Objective Last 24 Hour Vital Signs Date Time Temp Pulse Resp B/P (MAP) Pulse Ox O2 Delivery O2 Flow Rate FiO2 09/19/18 16:53 102 18 Nasal Cannula 3.0 32 09/19/18 16:52 Nasal Cannula 3.0 32 09/19/18 16:50 102 18 100 Nasal Cannula 3.0 36 09/19/18 16:42 98 16 100 Nasal Cannula 3.0 32 09/19/18 16:42 36 09/19/18 16:00 98.3 73 20 104/68 (80) 100 09/19/18 12:00 97.8 82 19 142/68 (92) 100 09/19/18 09:00 Room Air 09/19/18 08:00 97.5 73 19 102/64 (77) 100 09/19/18 04:00 97.9 76 18 113/66 (82) 100 09/19/18 00:00 98.0 71 19 95/62 (73) 100 09/18/18 21:00 Room Air 09/18/18 20:00 97.5 99 18 111/81 (91) 99 Intake and Output 09/18/18 09/19/18 18:59 06:59 Intake Total 2085 ml 900 ml Output Total 25 ml Balance 2060 ml 900 ml Intake Oral 1335 ml IV Total 750 ml 900 ml Output Emesis 25 ml # Voids 4 3 # Bowel Movements 2 Laboratory Tests 09/19/18 05:40: White Blood Count 3.4L, Red Blood Count 4.17L, Hemoglobin 11.0L, Hematocrit 34.1L, Mean Corpuscular Volume 82, Mean Corpuscular Hemoglobin 26.3L, Mean Corpuscular Hemoglobin Concent 32.1, Red Cell Distribution Width 16.3H, Platelet Count 73L, Mean Platelet Volume 8.9, Neutrophils (%) (Auto) , Lymphocytes (%) (Auto) , Monocytes (%) (Auto) , Eosinophils (%) (Auto) , Basophils (%) (Auto) , Differential Total Cells Counted 100, Neutrophils % ( Manual) 48, Lymphocytes % (Manual) 43, Monocytes % (Manual) 7, Eosinophils % ( Manual) 2, Basophils % (Manual) 0, Band Neutrophils 0, Platelet Estimate DecreasedL, Platelet Morphology Normal, Anisocytosis 1+, Sodium Level 140, Potassium Level 3.6, Chloride Level 106, Carbon Dioxide Level 29, Anion Gap 5, Blood Urea Nitrogen 5L, Creatinine 0.7, Estimat Glomerular Filtration Rate > 60 , Glucose Level 145H, Calcium Level 7.8L Height (Feet): 5 Height (Inches): 2.00 Weight (Pounds): 105 Objective WDWN NCAT supple CTA RRR abd soft, (+) R sided TTP no edema Landy Arizmendi MD Sep 19, 2018 19:31
[2018-09-19] MEDS ORDERED: NS 275ml ONE (19:36)
[2018-09-19] MEDS ORDERED: D5NS 1000ml IV ONE (19:36)
[2018-09-19] MEDS ORDERED: NS 500ML ONE (19:36)
[2018-09-19] MEDS ORDERED: Tubing Blood Filter IV ONE (19:36)
[2018-09-19] MEDS ORDERED: Tubing IV Secondary IV ONE (19:36)
--- NOTE | 2018-09-19 19:46 | NUR ---
HAND-OFF: Report given to Rebeca and endorsed to follow up with [facility] [place] medical records.
--- NOTE | 2018-09-19 19:50 | NUR ---
NURSE NOTES: Pt received asleep, bed in lowest position, no signs of distress at the moment, call light within reach. will endorse to AM nurse to follow up with [facility] about pt medical records.
--- NOTE | 2018-09-19 19:53 | NUR ---
NURSE NOTES: RN received a call from Dr. Arizmendi he said if patient vomit again, do not throw or wash the container and keep it until Dr. Arizmendi sees it. Endorsed to next shift.
[2018-09-19 20:00] VITALS: BP 97/62
--- NOTE | 2018-09-19 20:45 | NUR ---
NURSE NOTES: Spoke with Dr Keating about patient taking Dilaudid 2mg q4 instead of q6, asked the patient and she agreed to Dilaudid 2mg q4hr. Informed her that I will not give benadryl and dilaudid IV together, pt continued asking why because she has taken it like that before. I informed her that it is dangerous and that I will wait 1 hour in between medication administration. Dr. Keating aware and patient agreed.
[2018-09-19] MEDS: Zolpidem 5mg tab ORAL SCH (21:43)
--- NOTE | 2018-09-19 21:50 | NUR ---
NURSE NOTES:Pulled extra SEroquel 100mg from Pyxis because the other was dropped and thrown in the trash can.
[2018-09-20] VITALS: BP 92/56
--- NOTE | 2018-09-20 00:04 | NUR ---
NURSE NOTES: Pt refused the medication Prochloroperazine when I had it at bedside, will replace in pyxis.
[2018-09-20 04:00] VITALS: BP 99/65
[2018-09-20] MEDS: D5NS 1,000 ML IV SCH ×2 (04:21→13:15)
[2018-09-20 05:09] LABS: HEMATOCRIT 32.2 % (37.0-47.0); HEMOGLOBIN 10.5 G/DL (12.0-16.0); MEAN CORPUSCULAR VOLUME 82 FL (80-99); PLATELET COUNT 66 K/UL (150-450); RED BLOOD COUNT 3.92 M/UL (4.20-5.40); RED CELL DISTRIBUTION WIDTH 16.6 % (11.6-14.8); WHITE BLOOD COUNT 5.6 K/UL (4.8-10.8)
[2018-09-20] MEDS: DiphenhydrAMINE 50mg/ml Inj IVP PRN ×3 (05:58→17:50)
[2018-09-20] MEDS: Sertraline 100mg tab ORAL SCH (05:58)
--- NOTE | 2018-09-20 07:29 | NUR ---
HAND-OFF: Report given to BEN Matthew.
[2018-09-20 08:00] VITALS: BP 95/63
--- NOTE | 2018-09-20 08:15 | NUR ---
NURSE NOTES: received patient in bed, awake, patient complains of pain but pain med is not due, nurse told patient she'll give her when it's due. Patient is on NPO except ice chips and meds. On 2L O2/min, intermittently. Patient receives IVF through RU chest port-a-cath, dressing dry and intact. Call light within easy reach, siderails up and bed locked at the lowest position possible. Will continue to monitor patient and follow up with the plan of care.
[2018-09-20] MEDS: Pantoprazole Inj IVP SCH ×2 (09:07→17:28)
[2018-09-20] MEDS: LORazepam 1mg tab ORAL SCH ×2 (10:24→17:14)
[2018-09-20] MEDS: Lithium Carbonate 150mg cap ORAL SCH (10:24)
--- NOTE | 2018-09-20 11:05 | NUR ---
CASE MANAGEMENT: REVIEW 09/20/2018 SI: UPPER GI BLEED EGD 09/17 T 98.3 HR 85 RR 18 B/P 95/63 SATS 96% ON RA WNL IS: PROTONIX IV BID LITHIUM PO QD D5 NS IVF @ 75ML/HR STEP DOWN UNIT STATUS DCP: PATIENT IS FROM HOME
[2018-09-20 12:00] VITALS: BP 105/67
[2018-09-20] MEDS ORDERED: Tums 500mg ORAL PRN ×2 (12:00→12:45)
--- NOTE | 2018-09-20 12:32 | General Progress Note ---
Assessment/Plan Assessment/Plan S: I have lots of pain O: appears in no distress, tolerating the PO clear liquid, reported an incident of Hemoptysis over n Night ,Keep requesting increase in frequency of IV dilaudid PHYSICAL EXAMINATION: HEAD AND NECK: Atraumatic and normocephalic. CHEST: Clear to auscultation. No wheezing. No crackles. HEART: S1 and S2. Regular rate and rhythm. ABDOMEN: Soft. No organomegaly. Positive for scars from prior surgery. Positive for tenderness in the upper abdomen. NEUROLOGIC: Awake, alert, and oriented x3. MUSCULOSKELETAL: No gross lateralized motor deficit. PSych: mood and affect is anxious Meds: reviewed and reconciled, including Dilaudid-IV ASSESSMENT AND PLAN: 1. Hemoptysis: upper glottis, vs Upper GI bleed. source!? ( GE-junction , Laryngo/Oropharyngeal !) Hgb remains stable 2. Cirrhosis ( unverified history) 3. Chronic pain. 4. Pancytopenia. 5. Cystic Fibrosis: with TPN and outpatient management 5. GI and DVT prophylaxis. PLAN OF CARE: Current GI workup in progress, status post EGD ENT workup - Dr Cardenas , in progress Subjective Allergies: Coded Allergies: CHLORHEXIDINE (Verified Allergy, Unknown, Rash, 09/16/18) Objective Last 24 Hour Vital Signs Date Time Temp Pulse Resp B/P (MAP) Pulse Ox O2 Delivery O2 Flow Rate FiO2 09/20/18 09:36 97.8 09/20/18 09:00 Room Air 09/20/18 08:00 98.3 85 18 95/63 (74) 96 09/20/18 04:00 97.8 82 19 99/65 (76) 95 09/20/18 00:00 98.2 91 20 92/56 (68) 98 09/19/18 21:00 Room Air 09/19/18 20:00 98.2 92 20 97/62 (74) 96 09/19/18 16:53 102 18 Nasal Cannula 3.0 32 09/19/18 16:52 Nasal Cannula 3.0 32 09/19/18 16:50 102 18 100 Nasal Cannula 3.0 36 09/19/18 16:42 98 16 100 Nasal Cannula 3.0 32 09/19/18 16:42 36 09/19/18 16:00 98.3 73 20 104/68 (80) 100 Intake and Output 09/19/18 09/20/18 19:00 07:00 Intake Total 750 ml 1000 ml Output Total 45 ml Balance 705 ml 1000 ml IV Total 750 ml 1000 ml Output Emesis 45 ml # Voids 2 1 Laboratory Tests 09/20/18 04:40: White Blood Count 5.6#, Red Blood Count 3.92L, Hemoglobin 10.5L, Hematocrit 32.2L, Mean Corpuscular Volume 82, Mean Corpuscular Hemoglobin 26.8L, Mean Corpuscular Hemoglobin Concent 32.6, Red Cell Distribution Width 16.6H, Platelet Count 66L, Mean Platelet Volume 8.6, Neutrophils (%) (Auto) , Lymphocytes (%) (Auto) , Monocytes (%) (Auto) , Eosinophils (%) (Auto) , Basophils (%) (Auto) , Differential Total Cells Counted 100, Neutrophils % ( Manual) 74, Lymphocytes % (Manual) 17L, Monocytes % (Manual) 7, Eosinophils % ( Manual) 2, Basophils % (Manual) 0, Band Neutrophils 0, Platelet Estimate DecreasedL, Platelet Morphology Normal, Hypochromasia 1+, Anisocytosis 1+ Height (Feet): 5 Height (Inches): 2.00 Weight (Pounds): 105 Otf Gama MD Sep 20, 2018 12:32
--- NOTE | 2018-09-20 15:47 | NUR ---
HAND-OFF: Report given to JIMMY Villavicencio.
[2018-09-20 16:00] VITALS: BP 108/69
--- NOTE | 2018-09-20 16:48 | NUR ---
NURSE NOTES: left voicemessage to Dr. Arizmendi re; patient vomitted in the basin as dark red with clots. awaits for call back. Addendum: 09/20/18 at 1813 by BRENDEN CUNN[address]HAM LVN Dr Arizmendi called back and entered his own orders. rechecked the temp and still 100 degrees. orally. will cont to monitor.
--- NOTE | 2018-09-20 17:03 | NUR ---
NURSE NOTES: obtained an order for temp 101.6 and HR 133 manually checked, by Dr Gama. will cont to monitor. Addendum: 09/20/18 at 1816 by BRENDEN CUNNINGHAM LVN cooling measure applied.
--- NOTE | 2018-09-20 17:25 | NUR ---
NURSE NOTES: acetaminophen given for temp. will recheck temp.
[2018-09-20] MEDS ORDERED: Isovue-300 100ml vial INJ PRN (18:15)
--- NOTE | 2018-09-20 18:20 | General Progress Note ---
Assessment/Plan Assessment/Plan Assessment - GI Bleed vs oropharynx bleed (no coffee ground emesis reported - RUQ abd pain - Fever - tachycardia - thromobcytopenia, ? etiology - N/V Recommendations - ATC compazine IV - PRN Zofran - re check labs - make NPO again - check blood Cx - consider ID eval - consider Heme eval - will consider repeat EGD Subjective Allergies: Coded Allergies: CHLORHEXIDINE (Verified Allergy, Unknown, Rash, 09/16/18) Subjective above noted seen earlier today said was doing better on compazine later got called by RN patient with scant (1/4 cup) red emesis with clots c/o RUQ pain gets dilaudid for abd pain also now with fever and tachycardia Objective Last 24 Hour Vital Signs Date Time Temp Pulse Resp B/P (MAP) Pulse Ox O2 Delivery O2 Flow Rate FiO2 09/20/18 16:00 100.4 122 21 108/69 (82) 98 09/20/18 13:22 97.8 09/20/18 12:00 98.8 101 18 105/67 (80) 99 09/20/18 09:00 Room Air 09/20/18 08:00 98.3 85 18 95/63 (74) 96 09/20/18 04:00 97.8 82 19 99/65 (76) 95 09/20/18 00:00 98.2 91 20 92/56 (68) 98 09/19/18 21:00 Room Air 09/19/18 20:00 98.2 92 20 97/62 (74) 96 Intake and Output 09/19/18 09/20/18 18:59 06:59 Intake Total 750 ml 1000 ml Output Total 45 ml Balance 705 ml 1000 ml IV Total 750 ml 1000 ml Output Emesis 45 ml # Voids 2 1 Laboratory Tests 09/20/18 04:40: White Blood Count 5.6#, Red Blood Count 3.92L, Hemoglobin 10.5L, Hematocrit 32.2L, Mean Corpuscular Volume 82, Mean Corpuscular Hemoglobin 26.8L, Mean Corpuscular Hemoglobin Concent 32.6, Red Cell Distribution Width 16.6H, Platelet Count 66L, Mean Platelet Volume 8.6, Neutrophils (%) (Auto) , Lymphocytes (%) (Auto) , Monocytes (%) (Auto) , Eosinophils (%) (Auto) , Basophils (%) (Auto) , Differential Total Cells Counted 100, Neutrophils % ( Manual) 74, Lymphocytes % (Manual) 17L, Monocytes % (Manual) 7, Eosinophils % ( Manual) 2, Basophils % (Manual) 0, Band Neutrophils 0, Platelet Estimate DecreasedL, Platelet Morphology Normal, Hypochromasia 1+, Anisocytosis 1+ Height (Feet): 5 Height (Inches): 2.00 Weight (Pounds): 105 Objective WDWN NCAT supple CTA RRR abd soft, (+) R sided TTP, more RUQ no edema Landy Arizmendi MD Sep 20, 2018 18:20
--- NOTE | 2018-09-20 19:06 | NUR ---
NURSE NOTES: SPOKE WITH dR Ramsay FOR CONSULTATION
--- NOTE | 2018-09-20 19:07 | NUR ---
HAND-OFF: Report given to MIMA.
[2018-09-20 19:16] LABS: HEMATOCRIT 33.8 % (37.0-47.0); HEMOGLOBIN 11.2 G/DL (12.0-16.0); LYMPHOCYTES % (AUTO) 13.9 % (20.0-45.0); MEAN CORPUSCULAR VOLUME 82 FL (80-99); MONOCYTES % (AUTO) 7.9 % (1.0-10.0); NEUTROPHILS % (AUTO) 76.1 % (45.0-75.0); PLATELET COUNT 93 K/UL (150-450); RED BLOOD COUNT 4.13 M/UL (4.20-5.40); RED CELL DISTRIBUTION WIDTH 16.4 % (11.6-14.8); WHITE BLOOD COUNT 7.2 K/UL (4.8-10.8)
[2018-09-20 19:17] LABS: BASOPHILS % (AUTO) 0.3 % (0.0-2.0); EOSINOPHILS % (AUTO) 1.8 % (0.0-3.0)
[2018-09-20 19:21] LABS: INR 1.2 (0.9-1.1)
[2018-09-20 19:25] LABS: ANION GAP 8 mmol/L (5-15); BLOOD UREA NITROGEN 8 mg/dL (7-18); CALCIUM 8.2 MG/DL (8.5-10.1); CARBON DIOXIDE 28 MMOL/L (21-32); CHLORIDE 103 MMOL/L (98-107); CREATININE 0.8 MG/DL (0.55-1.30); SODIUM 139 MMOL/L (136-145)
[2018-09-20 19:30] LABS: ALANINE AMINOTRANSFERASE 30 U/L (12-78); ALBUMIN 2.8 G/DL (3.4-5.0); ALBUMIN/GLOBULIN RATIO 0.8 (1.0-2.7); ALKALINE PHOSPHATASE 117 U/L (46-116); ASPARTATE AMINO TRANSFERASE 24 U/L (15-37); BILIRUBIN,TOTAL 0.4 MG/DL (0.2-1.0)
--- NOTE | 2018-09-20 19:43 | NUR ---
NURSE NOTES: Pt received awake, looks sleepy and fatigued, explained that we need to collect urine and blood draw will be done and CT of abd/pelvis and she agreed, call light within reach, able to make needs known, bed in lowest position, no signs of distress at the moment, will monitor.
[2018-09-20 20:00] VITALS: BP 95/57
--- NOTE | 2018-09-20 21:15 | NUR ---
NURSE NOTES: Pt picked up by radiology for CT abd/pelvis.
[2018-09-20] MEDS: Zolpidem 5mg tab ORAL SCH (21:39)
[2018-09-20] MEDS: Cefepime HCl 2 GM in D5W 55 ML IVPB SCH (21:40)
--- NOTE | 2018-09-20 21:45 | NUR ---
NURSE NOTES: Pt back from radiology and requesting pain medication.
[2018-09-20] MEDS: Vancomycin 1gm/D5W 275ml IVPB SCH ×2 (22:39)
[2018-09-21] VITALS (10 sets, daily range): BP systolic 86–104; BP diastolic 54–70
--- NOTE | 2018-09-21 | NUR ---
NURSE NOTES: Pt refused compazine medication, no signs of vomiting on this shift. will continue to monitor.
[2018-09-21] MEDS: D5NS 1,000 ML IV SCH ×4 (01:45→19:24)
[2018-09-21] MEDS: DiphenhydrAMINE 50mg/ml Inj IVP PRN ×3 (06:00→18:05)
[2018-09-21] MEDS: Sertraline 100mg tab ORAL SCH (06:01)
--- NOTE | 2018-09-21 07:30 | NUR ---
NURSE NOTES: Patient is in bed awake and able to verbalize needs. Patient complains of 9/10 pain. Will give pain medication as ordered when due. Patient is stable and in no visible distress at this time. Patient is comfortable in bed in locked position and call light within reach. Will continue to monitor.
--- NOTE | 2018-09-21 07:35 | NUR ---
HAND-OFF: Report given to BEN López.
[2018-09-21] MEDS: Cefepime HCl 2 GM in D5W 55 ML IVPB SCH ×2 (08:26→20:29)
[2018-09-21] MEDS: Lithium Carbonate 150mg cap ORAL SCH (08:27)
[2018-09-21] MEDS: Pantoprazole Inj IVP SCH ×2 (08:27→18:04)
[2018-09-21] MEDS: LORazepam 1mg tab ORAL SCH ×2 (08:27→18:04)
--- NOTE | 2018-09-21 08:40 | Consultation ---
History of Present Illness General Date patient seen: Sep 21, 2018 Time patient seen: 08:10 Chief Complaint: Vomiting with h/o esop varices, cystic fibrosis, pancreatitis. Referring physician: CA CHU Reason for Consultation: UGIB Present Illness HPI pt spitting up blood, Endoscopy by Dr. Swift on 10/18/18 only gastritis. She does not recall. Last GI bleed 8 months ago-scope at [facility] where she is followed. She spoke with her GI there, last time bleed lower esop. junction. Did spit up some blood this AM. Allergies: Coded Allergies: CHLORHEXIDINE (Verified Allergy, Unknown, Rash, 09/16/18) Medication History Scheduled Lipase/Protease/Amylase (Sloan Chang 3,000 Units Capsule), 2 EACH PO TID, (Reported ) [place] Carbonate* ([place]*), 20 MG ORAL DAILY, (Reported) Lorazepam* (Ativan*), 2 MG ORAL BID, (Reported) Pantoprazole* (Pantoprazole*), 40 MG ORAL DAILY, (Reported) Quetiapine Fumarate (Seroquel Xr), 50 MG ORAL ACBREAKFAST, (Reported) Quetiapine Fumarate (Seroquel Xr), 300 MG ORAL QHS, (Reported) Sertraline Hcl* (Zoloft*), 200 MG PO ACBREAKFAST, (Reported) Zolpidem Tartrate* (Ambien*), 10 MG ORAL BEDTIME, (Reported) [Tpn], OVER 12 HOURS, (Reported) Patient History History Provided By: Patient, Medical Record Healthcare decision maker Patient Resuscitation status Full Code Advanced Directive on File Patient History Narrative H/O GI bleeds Review of Systems Constitutional: Reports: weakness Eye: Reports: no symptoms ENT: Reports: no symptoms Respiratory: Reports: no symptoms Cardiovascular: Reports: no symptoms Gastrointestinal: Reports: hematemesis Skin: Reports: no symptoms Psychiatric: Reports: other - popssible narcotic abuse Neurological: Reports: no symptoms Physical Exam General Appearance: WD/WN HEENT: normocephalic, atraumatic, mucous membranes moist, PERRL, EOMI, pharynx normal, supple, no JVD, carotid(s) normal Neck: non-tender, normal alignment, supple, normal inspection Last 24 Hour Vital Signs Date Time Temp Pulse Resp B/P (MAP) Pulse Ox O2 Delivery O2 Flow Rate FiO2 09/21/18 08:13 77 15 Room Air 21 09/21/18 04:00 98.7 102 18 103/66 (78) 97 09/21/18 00:00 97.4 52 16 86/54 (65) 95 09/20/18 21:00 Room Air 09/20/18 20:00 98.5 88 18 95/57 (70) 97 09/20/18 19:25 Nasal Cannula 3.0 32 09/20/18 19:24 103 20 Nasal Cannula 3.0 32 09/20/18 18:21 101.6 09/20/18 17:44 100.0 09/20/18 17:00 100.0 09/20/18 16:00 101.6 122 21 108/69 (82) 98 09/20/18 12:00 98.8 101 18 105/67 (80) 99 09/20/18 09:00 Room Air Intake and Output 09/20/18 09/21/18 19:00 07:00 Intake Total 1836 ml 1222.416 ml Balance 1836 ml 1222.416 ml Intake Oral 736 ml IV Total 1100 ml 1222.416 ml # Voids 3 Laboratory Tests Test 09/20/18 18:40 White Blood Count 7.2 K/UL (4.8-10.8) Red Blood Count 4.13 M/UL (4.20-5.40) L Hemoglobin 11.2 G/DL (12.0-16.0) L Hematocrit 33.8 % (37.0-47.0) L Mean Corpuscular Volume 82 FL (80-99) Mean Corpuscular Hemoglobin 27.0 PG (27.0-31.0) Mean Corpuscular Hemoglobin Concent 33.0 G/DL (32.0-36.0) Red Cell Distribution Width 16.4 % (11.6-14.8) H Platelet Count 93 K/UL (150-450) L Mean Platelet Volume 9.3 FL (6.5-10.1) Neutrophils (%) (Auto) 76.1 % (45.0-75.0) H Lymphocytes (%) (Auto) 13.9 % (20.0-45.0) L Monocytes (%) (Auto) 7.9 % (1.0-10.0) Eosinophils (%) (Auto) 1.8 % (0.0-3.0) Basophils (%) (Auto) 0.3 % (0.0-2.0) Prothrombin Time 12.3 SEC (9.30-11.50) H Prothromb Time International Ratio 1.2 (0.9-1.1) H Sodium Level 139 MMOL/L (136-145) Potassium Level 3.0 MMOL/L (3.5-5.1) L Chloride Level 103 MMOL/L (98-107) Carbon Dioxide Level 28 MMOL/L (21-32) Anion Gap 8 mmol/L (5-15) Blood Urea Nitrogen 8 mg/dL (7-18) Creatinine 0.8 MG/DL (0.55-1.30) Estimat Glomerular Filtration Rate > 60 mL/min (>60) Glucose Level 148 MG/DL (74-106) H Calcium Level 8.2 MG/DL (8.5-10.1) L Total Bilirubin 0.4 MG/DL (0.2-1.0) Aspartate Amino Transf (AST/SGOT) 24 U/L (15-37) Alanine Aminotransferase (ALT/SGPT) 30 U/L (12-78) Alkaline Phosphatase 117 U/L (46-116) H Total Protein 6.3 G/DL (6.4-8.2) L Albumin 2.8 G/DL (3.4-5.0) L Globulin 3.5 g/dL Albumin/Globulin Ratio 0.8 (1.0-2.7) L Height (Feet): 5 Height (Inches): 2.00 Weight (Pounds): 105 Medications Current Medications Medications (Trade) Dose Ordered Sig/Rudi Route PRN Reason Start Time Stop Time Status Last Admin Dose Admin Acetaminophen (Tylenol) 650 mg Q4H PRN ORAL Mild Pain/Temp > 100.5 09/20/18 17:15 10/20/18 17:14 09/20/18 17:14 Albuterol/ Ipratropium (Albuterol/ Ipratropium) 3 ml Q4H PRN HHN Shortness of Breath 09/19/18 16:45 09/24/18 16:44 09/19/18 16:49 Barium Sulfate (Readi-Cat 2) 450 ml NOW PRN ORAL Radiology Procedure 09/20/18 18:15 09/22/18 18:14 Bisacodyl (Dulcolax) 10 mg DAILYPRN PRN RECTAL Constipation 09/18/18 15:00 10/18/18 14:59 Calcium Carbonate (Tums) 500 mg Q3H PRN ORAL Abdominal cramps 09/20/18 12:45 10/20/18 12:44 09/20/18 13:13 Cefepime HCl 2 gm/ Dextrose 55 ml @ 110 mls/hr EVERY 12 HOURS IVPB 09/20/18 20:30 09/27/18 20:29 09/21/18 08:26 Dextrose/Sodium Chloride 1,000 ml @ 100 mls/hr Q10H IV 09/19/18 17:24 10/16/18 07:59 09/21/18 01:45 Diphenhydramine HCl (Benadryl) 50 mg Q6H PRN IVP Itching 09/18/18 08:00 10/16/18 07:59 09/21/18 06:00 Hydromorphone HCl (Dilaudid) 2 mg Q4H PRN IVP Severe Pain (Pain Scale 7-10) 09/19/18 21:45 09/26/18 21:44 09/21/18 08:28 Iopamidol (Isovue-300 100ml) 100 ml NOW PRN INJ Radiology Procedure 09/20/18 18:15 09/21/18 23:59 [place] Carbonate ([place] Carbonate) 150 mg DAILY ORAL 09/18/18 09:30 10/17/18 09:29 09/21/18 08:27 Lorazepam (Ativan) 2 mg BID ORAL 09/18/18 09:00 09/24/18 08:59 09/21/18 08:27 Ondansetron HCl (Zofran) 4 mg Q6H PRN IVP Nausea & Vomiting 09/18/18 08:00 10/16/18 07:59 09/19/18 01:01 Pantoprazole (Protonix) 40 mg BID IVP 09/18/18 09:00 10/17/18 08:59 09/21/18 08:27 Prochlorperazine (Compazine) 10 mg Q6HR IVP 09/19/18 09:45 10/19/18 09:44 09/21/18 06:12 Quetiapine Fumarate (SEROquel) 50 mg BEFORE BREAKFAST ORAL 09/19/18 06:30 10/17/18 06:29 09/21/18 06:01 Quetiapine Fumarate (SEROquel) 300 mg QHS ORAL 09/18/18 21:00 10/16/18 22:14 09/20/18 21:57 Sertraline HCl (Zoloft) 200 mg ACBREAKFAST ORAL 09/19/18 06:30 10/17/18 06:29 09/21/18 06:01 Vancomycin HCl (Vanco rx to dose) 1 ea DAILY PRN MISC Per rx protocol 09/20/18 19:15 10/20/18 19:14 Vancomycin HCl 1 gm/Dextrose 275 ml @ 183.708 mls/hr Q12HR@1000,2200 IVPB 09/20/18 21:00 09/25/18 20:59 09/20/18 22:39 Zolpidem Tartrate (Ambien) 5 mg BEDTIME ORAL 09/18/18 21:00 09/24/18 20:59 09/20/18 21:39 Assessment/Plan Status: stable Status Narrative Possible bleed from upper airway-unlikely from disease process and history of lower Esop junction but possible. Assessment/Plan I will speak with Dr. Pollock re his exam and then consider Fiberoptic laryngoscopy. Jericho Cardenas MD Sep 21, 2018 08:40
[2018-09-21] MEDS: Vancomycin 1gm/D5W 275ml IVPB SCH ×6 (10:00→22:31)
--- NOTE | 2018-09-21 10:11 | Diagnostic Imaging Report ---
Indication: Abdominal pain Technique: CT of the abdomen and pelvis utilizing automated exposure control with intravenous contrast. Venous scanning performed. Axial, sagittal and coronal reformats presented. CT dose: Total DLP 494.04 mGycm; CTDI vol 9.5 mGy Comparison: Abdominal ultrasound 09/16/2018 Findings: There is trace left pleural effusion and bibasilar atelectasis in the posterior aspects of the bilateral lower lobes. Heart size within normal limits. No pericardial effusion. Portions of a right chest wall Mediport catheter are partially imaged. Bilateral breast tissue appears symmetric. Patient is status post cholecystectomy. There is diffuse hypoattenuation of the liver relative the spleen suggestive of hepatic steatosis. There is equivocal surface nodularity of the liver. No focal hepatic mass lesion appreciated on this single phase exam. Hepatic veins and portal veins appear patent. No biliary ductal dilatation. Spleen and the upper limits for normal size. No focal splenic lesion identified. Adrenal glands unremarkable. There is apparent suggestive of partial pancreatic resection. Some high density punctate foci noted adjacent to the residual pancreatic head may be related to calcifications or surgical material. The kidneys enhance symmetrically. There is no urinary tract stone or hydronephrosis bilaterally. No perinephric stranding. Bladder is distended. Uterus and adnexa are unremarkable for patient's age. There is no free intraperitoneal air. There is a tiny fat-containing umbilical hernia. Trace free fluid is noted in the right pelvis. Appendix is not definitively visualized. Some high attenuation material is noted in the right lower quadrant which may suggest prior appendectomy. No definite inflammatory stranding noted in the fat of the right lower quadrant. There is significant colonic stool suggests constipation. No abnormal small bowel dilatation. Abdominal aorta normal in caliber. Perisplenic and perigastric varices are noted. Small paraesophageal varices also noted. No pathologically enlarged lymphadenopathy. No acute osseous normality. Mild degenerative changes with disc space narrowing at L5-S1. IMPRESSION: * Appearance suggesting partial resection of the pancreas. Some punctate high attenuation foci noted adjacent to the residual pancreatic head which may represent surgical material or calcifications. Chronic pancreatitis can also be considered. Correlation with clinical history recommended. * Status post cholecystectomy. * Findings suggestive of hepatic steatosis. * Significant colonic stool burden suggestive of constipation. No evidence of small bowel obstruction. No free intraperitoneal air. Trace nonspecific free fluid noted in the right pelvis. * Significant distention of the urinary bladder. Correlate clinically to assess for urinary retention/outlet obstruction. * Trace left pleural effusion and bibasilar likely atelectasis. * Equivocal surface nodularity of the liver. Early cirrhotic changes should be considered, especially given visualized portosystemic varices. * Spleen within the upper limits for normal. * Esophageal wall thickening with adjacent small varices. Perigastric and perisplenic varices also noted. The CT scanner at [facility] is accredited by the [employer] and the scans are performed using protocols designed to limit radiation exposure to as low as reasonably achievable to attain images of sufficient resolution adequate for diagnostic evaluation.
--- NOTE | 2018-09-21 10:38 | General Progress Note ---
Assessment/Plan Problem List: (1) Narcotic dependence ICD Codes: F11.20 - Opioid dependence, uncomplicated SNOMED: 69735939 (2) Epigastric pain ICD Codes: R10.13 - Epigastric pain SNOMED: 94700751 (3) UGI bleed ICD Codes: K92.2 - Gastrointestinal hemorrhage, unspecified SNOMED: 62743591 (4) liver c (5) Liver cirrhosis ICD Codes: K74.60 - Unspecified cirrhosis of liver SNOMED: 88620606 Status: stable Assessment/Plan We will continue Dilaudid as 2 mg IVP until certain diagnosis by GI. When diagnosis established, I will decide how to proceed with narcotic issue. Subjective Constitutional: Denies: no symptoms, chills, diaphoresis, fever, malaise, weakness, other HEENT: Denies: no symptoms, eye pain, blurred vision, tearing, double vision, ear pain, ear discharge, nose pain, nose congestion, throat pain, throat swelling, mouth pain, mouth swelling, other Cardiovascular: Denies: no symptoms, chest pain, edema, irregular heart rate, lightheadedness, palpitations, syncope, other Respiratory: Denies: no symptoms, cough, orthopnea, shortness of breath, SOB with excertion, SOB at rest, sputum, stridor, wheezing, other Gastrointestinal/Abdominal: Reports: abdominal pain, poor appetite Genitourinary: Denies: no symptoms, burning, discharge, frequency, flank pain, hematuria, incontinence, pain, urgency, other Neurologic/Psychiatric: Reports: anxiety, depressed, emotional problems Allergies: Coded Allergies: CHLORHEXIDINE (Verified Allergy, Unknown, Rash, 09/16/18) Subjective Nurse called me over the weekend and I instructed the nurse to give pt 2 mg Dilaudid IVPB but the order is inserted as IVP which I did not intend to give. She has used all 6 doses yesterday. Pain is controlled. Objective Last 24 Hour Vital Signs Date Time Temp Pulse Resp B/P (MAP) Pulse Ox O2 Delivery O2 Flow Rate FiO2 09/21/18 08:13 77 15 Room Air 21 09/21/18 08:00 98.2 77 19 100/64 (76) 100 09/21/18 04:00 98.7 102 18 103/66 (78) 97 09/21/18 00:00 97.4 52 16 86/54 (65) 95 09/20/18 21:00 Room Air 09/20/18 20:00 98.5 88 18 95/57 (70) 97 09/20/18 19:25 Nasal Cannula 3.0 32 09/20/18 19:24 103 20 Nasal Cannula 3.0 32 09/20/18 18:21 101.6 09/20/18 17:44 100.0 09/20/18 17:00 100.0 09/20/18 16:00 101.6 122 21 108/69 (82) 98 09/20/18 12:00 98.8 101 18 105/67 (80) 99 Intake and Output 09/20/18 09/21/18 19:00 07:00 Intake Total 1836 ml 1222.416 ml Balance 1836 ml 1222.416 ml Intake Oral 736 ml IV Total 1100 ml 1222.416 ml # Voids 3 Laboratory Tests 09/20/18 18:40: White Blood Count 7.2, Red Blood Count 4.13L, Hemoglobin 11.2L, Hematocrit 33.8L , Mean Corpuscular Volume 82, Mean Corpuscular Hemoglobin 27.0, Mean Corpuscular Hemoglobin Concent 33.0, Red Cell Distribution Width 16.4H, Platelet Count 93L, Mean Platelet Volume 9.3, Neutrophils (%) (Auto) 76.1H, Lymphocytes (%) (Auto) 13.9L, Monocytes (%) (Auto) 7.9, Eosinophils (%) (Auto) 1.8, Basophils (%) (Auto) 0.3, Prothrombin Time 12.3H, Prothromb Time International Ratio 1.2H, Sodium Level 139, Potassium Level 3.0L, Chloride Level 103, Carbon Dioxide Level 28, Anion Gap 8, Blood Urea Nitrogen 8, Creatinine 0.8, Estimat Glomerular Filtration Rate > 60, Glucose Level 148H, Calcium Level 8.2L, Total Bilirubin 0.4, Aspartate Amino Transf (AST/SGOT) 24, Alanine Aminotransferase (ALT/SGPT) 30, Alkaline Phosphatase 117H, Total Protein 6.3L, Albumin 2.8L, Globulin 3.5, Albumin/Globulin Ratio 0.8L Height (Feet): 5 Height (Inches): 2.00 Weight (Pounds): 105 General Appearance: WD/WN EENT: PERRL/EOMI Neck: non-tender Cardiovascular: normal rate Respiratory/Chest: lungs clear Abdomen: tender - at RUQ Edema: no edema noted Arm (L), no edema noted Arm (R), no edema noted Leg (L), no edema noted Leg (R), no edema noted Pedal (L), no edema noted Pedal (R), no edema noted Generalized Neurologic: in house counsel II-XII grossly normal, no motor/sensory deficits, oriented x 3 Ismael Keating MD Sep 21, 2018 10:38
--- NOTE | 2018-09-21 10:44 | Pre-Procedure Note/Attestation ---
Pre-Procedure Note/Attestation Complete Prior to Procedure Planned Procedure: not applicable Procedure Narrative: egd Indications for Procedure Pre-Operative Diagnosis: gib Attestation I attest that I discussed the nature of the procedure; its benefits; risks and complications; and alternatives (and the risks and benefits of such alternatives ), prior to the procedure, with the patient (or the patient's legal marketing sales representative). I attest that, if there was a reasonable possibility of needing a blood transfusion, the patient (or the patient's legal marketing sales representative) was given the [facility] standardized written summary, pursuant to the Robert Teodoro Blood Safety Act ([place] Health and Safety Code # 1645, as amended). I attest that I re-evaluated the patient just prior to the surgery and that there has been no change in the patient's H&P, except as documented below: Gary Pollock MD Sep 21, 2018 10:44
--- NOTE | 2018-09-21 10:49 | NUR ---
NURSE NOTES: Patient taken to GI lab via gurney. Patient is stable.
[2018-09-21] MEDS ORDERED: fentaNYL 100 mcg/2 mL IV ONE (10:56)
[2018-09-21] MEDS ORDERED: Midazolam 2mg/2ml Inj ONE (10:56)
[2018-09-21] MEDS ORDERED: NS 500ML IVPB ONE (11:05)
--- NOTE | 2018-09-21 11:19 | Endoscopy Procedure Note ---
Endoscopy Procedure Note General Indication for Procedure: gib Procedures Performed: EGD Operative Findings/Diagnosis: ? pill induced esophagitis Specimen: yes Pt Tolerated Procedure Well: Yes Estimated Blood Loss: none Anesthesia Anesthesiologist: saul Anesthesia: MAC Inserted Devices Implant(s) used?: No GI Core Measures 50 yrs or older w/o bx or poly: Not Applicable 10yrs. F/U not recommended: Not Applicable Gary Pollock MD Sep 21, 2018 11:19
[2018-09-21] MEDS ORDERED: DiphenhydrAMINE 50mg/ml Inj IVP PRN (11:30)
[2018-09-21] MEDS ORDERED: Meperidine 50mg/ml Inj(FOR RIGORS ONLY) IV PRN (11:30)
--- NOTE | 2018-09-21 11:31 | General Progress Note ---
Assessment/Plan Assessment/Plan S: I have lots of pain O: appears in no distress, tolerating the PO clear liquid ,Keep requesting increase in frequency of IV dilaudid PHYSICAL EXAMINATION: HEAD AND NECK: Atraumatic and normocephalic. CHEST: Clear to auscultation. No wheezing. No crackles. HEART: S1 and S2. Regular rate and rhythm. ABDOMEN: Soft. No organomegaly. Positive for scars from prior surgery. Positive for tenderness in the upper abdomen. NEUROLOGIC: Awake, alert, and oriented x3. MUSCULOSKELETAL: No gross lateralized motor deficit. PSych: mood and affect is anxious Meds: reviewed and reconciled, including Dilaudid-IV ASSESSMENT AND PLAN: 1. Hemoptysis: upper glottis, vs Upper GI bleed. source!? ( GE-junction , Laryngo/Oropharyngeal !) Hgb remains stable 2. Cirrhosis ( unverified history) 3. Chronic pain. 4. Pancytopenia. 5. Cystic Fibrosis: with TPN and outpatient management 5. GI and DVT prophylaxis. PLAN OF CARE: Current GI workup in progress, status post Second EGD ENT workup -completed Subjective Allergies: Coded Allergies: CHLORHEXIDINE (Verified Allergy, Unknown, Rash, 09/16/18) Objective Last 24 Hour Vital Signs Date Time Temp Pulse Resp B/P (MAP) Pulse Ox O2 Delivery O2 Flow Rate FiO2 09/21/18 09:00 Room Air 09/21/18 08:13 77 15 Room Air 21 09/21/18 08:00 98.2 77 19 100/64 (76) 100 09/21/18 04:00 98.7 102 18 103/66 (78) 97 09/21/18 00:00 97.4 52 16 86/54 (65) 95 09/20/18 21:00 Room Air 09/20/18 20:00 98.5 88 18 95/57 (70) 97 09/20/18 19:25 Nasal Cannula 3.0 32 09/20/18 19:24 103 20 Nasal Cannula 3.0 32 09/20/18 18:21 101.6 09/20/18 17:44 100.0 09/20/18 17:00 100.0 09/20/18 16:00 101.6 122 21 108/69 (82) 98 09/20/18 12:00 98.8 101 18 105/67 (80) 99 Intake and Output 09/20/18 09/21/18 19:00 07:00 Intake Total 1836 ml 1222.416 ml Balance 1836 ml 1222.416 ml Intake Oral 736 ml IV Total 1100 ml 1222.416 ml # Voids 3 Laboratory Tests 09/20/18 18:40: White Blood Count 7.2, Red Blood Count 4.13L, Hemoglobin 11.2L, Hematocrit 33.8L , Mean Corpuscular Volume 82, Mean Corpuscular Hemoglobin 27.0, Mean Corpuscular Hemoglobin Concent 33.0, Red Cell Distribution Width 16.4H, Platelet Count 93L, Mean Platelet Volume 9.3, Neutrophils (%) (Auto) 76.1H, Lymphocytes (%) (Auto) 13.9L, Monocytes (%) (Auto) 7.9, Eosinophils (%) (Auto) 1.8, Basophils (%) (Auto) 0.3, Prothrombin Time 12.3H, Prothromb Time International Ratio 1.2H, Sodium Level 139, Potassium Level 3.0L, Chloride Level 103, Carbon Dioxide Level 28, Anion Gap 8, Blood Urea Nitrogen 8, Creatinine 0.8, Estimat Glomerular Filtration Rate > 60, Glucose Level 148H, Calcium Level 8.2L, Total Bilirubin 0.4, Aspartate Amino Transf (AST/SGOT) 24, Alanine Aminotransferase (ALT/SGPT) 30, Alkaline Phosphatase 117H, Total Protein 6.3L, Albumin 2.8L, Globulin 3.5, Albumin/Globulin Ratio 0.8L Height (Feet): 5 Height (Inches): 2.00 Weight (Pounds): 105 Otf Gama MD Sep 21, 2018 11:31
--- NOTE | 2018-09-21 11:48 | Anethesia Preoperative Eval ---
Anesthesia Pre-op PMH/ROS General Date of Evaluation: Sep 21, 2018 Time of Evaluation: 10:58 Anesthesiologist: Latisha ASA Score: ASA 3 Mallampati Score Class I : Soft palate, uvula, fauces, pillars visible Class II: Soft palate, uvula, fauces visible Class III: Soft palate, base of uvula visible Class IV: Only hard plate visible Mallampati Classification: Class II Surgeon: Phill Diagnosis: Upper GI bleed Surgical Procedure: EGD Anesthesia History: none Social History: drug use - opioid dependent Family History: no anesthesia problems Allergies: Coded Allergies: CHLORHEXIDINE (Verified Allergy, Unknown, Rash, 09/16/18) Medications: see eMAR Patient NPO?: Yes Past Medical History Cardiovascular: Denies: HTN, CAD, PR, valve dz, arrhythmia, other Pulmonary: Denies: asthma, COPD, YARED, other Gastrointestinal/Genitourinary: Reports: GERD, other - Cystic fibrosis chronic pancreatitis, liver cirrosis; Denies: CRI, ESRD Neurologic/Psychiatric: Reports: depression/anxiety, other - chronic pain; Denies: dementia, CVA, TIA Endocrine: Denies: DM, hypothyroidism, steroids, other HEENT: Denies: cataract (L), cataract (R), glaucoma, ROBINSON (L), ROBINSON (R), other Hematology/Immune: Reports: anemia, bleeding disorder - recurrent GI bleed; Denies: DVT, other Musculoskeletal/Integumentary: Denies: OA, RA, DJD, DDD, edema, other Other: other PMH Narrative: as above PSxH Narrative: partial pancreatic resection Anesthesia Pre-op Phys. Exam Physician Exam Last Vital Signs Date Time Temp Pulse Resp B/P (MAP) Pulse Ox O2 Delivery O2 Flow Rate FiO2 09/21/18 11:36 78 16 91/59 96 Nasal Cannula 3 09/21/18 11:26 97.1 09/21/18 08:13 21 Constitutional: NAD Neurologic: CN 2-12 intact Cardiovascular: RRR, no M/R/G Respiratory: CTA Gastrointestinal: S/NT/ND Airway Exam Mallampati Score: Class II MO: limited Neck: flexible ROM: limited Teeth: intact Dentures: no upper, no lower Anesthesia Pre-op A/P Labs Hematology Test 09/20/18 18:40 White Blood Count 7.2 K/UL (4.8-10.8) Red Blood Count 4.13 M/UL (4.20-5.40) L Hemoglobin 11.2 G/DL (12.0-16.0) L Hematocrit 33.8 % (37.0-47.0) L Mean Corpuscular Volume 82 FL (80-99) Mean Corpuscular Hemoglobin 27.0 PG (27.0-31.0) Mean Corpuscular Hemoglobin Concent 33.0 G/DL (32.0-36.0) Red Cell Distribution Width 16.4 % (11.6-14.8) H Platelet Count 93 K/UL (150-450) L Mean Platelet Volume 9.3 FL (6.5-10.1) Neutrophils (%) (Auto) 76.1 % (45.0-75.0) H Lymphocytes (%) (Auto) 13.9 % (20.0-45.0) L Monocytes (%) (Auto) 7.9 % (1.0-10.0) Eosinophils (%) (Auto) 1.8 % (0.0-3.0) Basophils (%) (Auto) 0.3 % (0.0-2.0) Coagulation Test 09/20/18 18:40 Prothrombin Time 12.3 SEC (9.30-11.50) H Prothromb Time International Ratio 1.2 (0.9-1.1) H Chemistry Test 09/20/18 18:40 Sodium Level 139 MMOL/L (136-145) Potassium Level 3.0 MMOL/L (3.5-5.1) L Chloride Level 103 MMOL/L (98-107) Carbon Dioxide Level 28 MMOL/L (21-32) Anion Gap 8 mmol/L (5-15) Blood Urea Nitrogen 8 mg/dL (7-18) Creatinine 0.8 MG/DL (0.55-1.30) Estimat Glomerular Filtration Rate > 60 mL/min (>60) Glucose Level 148 MG/DL (74-106) H Calcium Level 8.2 MG/DL (8.5-10.1) L Total Bilirubin 0.4 MG/DL (0.2-1.0) Aspartate Amino Transf (AST/SGOT) 24 U/L (15-37) Alanine Aminotransferase (ALT/SGPT) 30 U/L (12-78) Alkaline Phosphatase 117 U/L (46-116) H Total Protein 6.3 G/DL (6.4-8.2) L Albumin 2.8 G/DL (3.4-5.0) L Globulin 3.5 g/dL Albumin/Globulin Ratio 0.8 (1.0-2.7) L Studies Pre-op Studies: EKG - NSR Risk Assessment & Plan Assessment: ASA 3 Plan: Bony Lagos MD Sep 21, 2018 11:48
--- NOTE | 2018-09-21 11:49 | 48 Hour Post Anesthesia Eval ---
Post Anesthesia Evaluation Procedure: egd/bx Date of Evaluation: Sep 21, 2018 Time of Evaluation: 11:48 Blood Pressure Systolic: 92 0: 54 Pulse Rate: 86 Respiratory Rate: 20 Temperature (Fahrenheit): 97.6 O2 Sat by Pulse Oximetry: 98 Airway: patent Nausea: No Vomiting: No Pain Intensity: 2 Hydration Status: adequate Cardiopulmonary Status: stable Mental Status/LOC: patient returned to baseline Follow-up Care/Observations: n/a Post-Anesthesia Complications: none Follow-up care needed: N/A Bony Reis MD Sep 21, 2018 11:49
--- NOTE | 2018-09-21 12:10 | NUR ---
NURSE NOTES: Patient returned to unit via gurney. Patient is stable with no s/s acute distress. Patient assisted to bed, tolerated well. Patient comfortable in bed in locked position with call light within reach. All needs met at this time. Will continue to monitor.
--- NOTE | 2018-09-21 13:07 | Diagnostic Imaging Report ---
Indication: Cough Technique: XRAY Chest 1v Comparison: 09/16/2018 Findings: Right chest wall Mediport again noted its catheter projecting over the area of the right cavoatrial junction/high right atrium. The port is currently accessed with a Goldman needle. Surgical clips noted in the right upper quadrant, likely prior cholecystectomy. Heart size and mediastinal contours stable. No focal airspace consolidation. No pleural effusion or pneumothorax. Bilateral nipple rings noted. No acute osseous abnormality. Impression: No radiographic evidence of acute cardiopulmonary disease. Right chest wall Mediport in place. Port is currently accessed at the time of acquisition of the radiograph. Likely prior cholecystectomy.
--- NOTE | 2018-09-21 14:43 | NUR ---
RD ASSESSMENT & RECOMMENDATIONS SEE CARE ACTIVITY FOR COMPLETE ASSESSMENT DAILY ESTIMATED NEEDS: Needs based on CF, pancreatitis, 47.7kg 30-35 kcals/kg 6020-9202 total kcals 1-1.5 g protein/kg 48-72 g total protein 25-30 mL/kg 4814-5596 total fluid mLs NUTRITION DIAGNOSIS: Altered GI fxn r/t GIB as evidenced by s/p EGD, w/ episodes of bloody emesis, h/o chronic pancreatitis d/t CF. CURRENT DIET:Now Regular soft easy chew PO DIET RECOMMENDATIONS: SOFT DIET + SNACKS IN B/W MEALS ADDITIONAL RECOMMENDATIONS: - Add ENSURE BID (10am, 2pm) - Obtain a standing weight as able - Consider digestive enzymes for improved nutrient absorption - Monitor lytes daily, replete as needed (Low K)
--- NOTE | 2018-09-21 14:55 | NUR ---
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 97.8 HR 78 RR 15 B/P 99/65 3L NC O2 SAT @ 98% EGD= GASTRITIS IS: IVF D5NS @ 75ML/HR VANCO IV CEFEPIME IV ZOLOFT PO PROTONIX IV MED/SURG STATUS
[2018-09-21 16:07] LABS: APPEARANCE,URINE CLEAR; BILIRUBIN, URINE NEGATIVE (NEGATIVE); COLOR,URINE PALE YELLOW; GLUCOSE, URINE (UA) NEGATIVE (NEGATIVE); KETONES,URINE NEGATIVE (NEGATIVE); LEUKOCYTE ESTERASE ,URINE NEGATIVE (NEGATIVE); NITRITE,URINE NEGATIVE (NEGATIVE); PH,URINE 6 (4.5-8.0); PROTEIN,URINE NEGATIVE (NEGATIVE); UROBILINOGEN,URINE NORMAL MG/DL (0.0-1.0)
--- NOTE | 2018-09-21 19:14 | Infectious Diseases Prog Note ---
Assessment/Plan Problems: (1) Acute bacterial tonsillitis Assessment & Plan: will start vancomycin and cefepime empirically to cover for sepsis , which will cover her tonsillitis too (2) Fever Assessment & Plan: rule out sepsis , will start vancomycin and cefepime empirically , send blood culture x2 to rule out bacteremia and UA. will obtain CXR to rule out pneumonia (3) UGI bleed Assessment & Plan: S/P EGD X2 , GI AND ENT are following . monitor H/H, transfuse blood as needed (4) Liver cirrhosis Assessment & Plan: supportive care, follow up with GI (5) Cystic fibrosis Assessment & Plan: continue inhalers and antibiotics Subjective Allergies: Coded Allergies: CHLORHEXIDINE (Verified Allergy, Unknown, Rash, 09/16/18) Objective Vital Signs Last 24 Hour Vital Signs Date Time Temp Pulse Resp B/P (MAP) Pulse Ox O2 Delivery O2 Flow Rate FiO2 09/21/18 15:53 98.4 76 16 97/64 (75) 95 09/21/18 11:49 86 20 98 09/21/18 11:48 97.8 78 15 99/65 99 Nasal Cannula 3 09/21/18 11:45 80 19 97/62 96 Nasal Cannula 3 09/21/18 11:36 78 16 91/59 96 Nasal Cannula 3 09/21/18 11:31 80 15 94/60 99 Nasal Cannula 3 09/21/18 11:26 97.1 86 20 94/61 99 Nasal Cannula 3 09/21/18 09:00 Room Air 09/21/18 08:13 77 15 Room Air 21 09/21/18 08:00 98.2 77 19 100/64 (76) 100 09/21/18 04:00 98.7 102 18 103/66 (78) 97 09/21/18 00:00 97.4 52 16 86/54 (65) 95 09/20/18 21:00 Room Air 09/20/18 20:00 98.5 88 18 95/57 (70) 97 09/20/18 19:25 Nasal Cannula 3.0 32 09/20/18 19:24 103 20 Nasal Cannula 3.0 32 Height (Feet): 5 Height (Inches): 2.00 Weight (Pounds): 105 Laboratory Tests Test 09/21/18 15:40 Urine Color Pale yellow Urine Appearance Clear Urine pH 6 (4.5-8.0) Urine Specific [place] 1.005 (1.005-1.035) Urine Protein Negative (NEGATIVE) Urine Glucose (UA) Negative (NEGATIVE) Urine Ketones Negative (NEGATIVE) Urine Blood Negative (NEGATIVE) Urine Nitrite Negative (NEGATIVE) Urine Bilirubin Negative (NEGATIVE) Urine Urobilinogen Normal MG/DL (0.0-1.0) Urine Leukocyte Esterase Negative (NEGATIVE) Current Medications Medications (Trade) Dose Ordered Sig/Rudi Route PRN Reason Start Time Stop Time Status Last Admin Dose Admin Acetaminophen (Tylenol) 650 mg Q4H PRN ORAL Mild Pain/Temp > 100.5 09/20/18 17:15 10/20/18 17:14 09/20/18 17:14 Albuterol/ Ipratropium (Albuterol/ Ipratropium) 3 ml Q4H PRN HHN Shortness of Breath 09/19/18 16:45 09/24/18 16:44 09/19/18 16:49 Barium Sulfate (Readi-Cat 2) 450 ml NOW PRN ORAL Radiology Procedure 09/20/18 18:15 09/22/18 18:14 Bisacodyl (Dulcolax) 10 mg DAILYPRN PRN RECTAL Constipation 09/18/18 15:00 10/18/18 14:59 Calcium Carbonate (Tums) 500 mg Q3H PRN ORAL Abdominal cramps 09/20/18 12:45 10/20/18 12:44 09/20/18 13:13 Cefepime HCl 2 gm/ Dextrose 55 ml @ 110 mls/hr EVERY 12 HOURS IVPB 09/20/18 20:30 09/27/18 20:29 09/21/18 08:26 Dextrose/Sodium Chloride 1,000 ml @ 100 mls/hr Q10H IV 09/19/18 17:24 10/16/18 07:59 09/21/18 12:12 Diphenhydramine HCl (Benadryl) 50 mg Q6H PRN IVP Itching 09/18/18 08:00 10/16/18 07:59 09/21/18 18:05 Hydromorphone HCl (Dilaudid) 2 mg Q4H PRN IVP Severe Pain (Pain Scale 7-10) 09/19/18 21:45 09/26/18 21:44 09/21/18 17:11 Iopamidol (Isovue-300 100ml) 100 ml NOW PRN INJ Radiology Procedure 09/20/18 18:15 09/21/18 23:59 [place] Carbonate ([place] Carbonate) 150 mg DAILY ORAL 09/18/18 09:30 10/17/18 09:29 09/21/18 08:27 Lorazepam (Ativan) 2 mg BID ORAL 09/18/18 09:00 09/24/18 08:59 09/21/18 18:04 Ondansetron HCl (Zofran) 4 mg Q6H PRN IVP Nausea & Vomiting 09/18/18 08:00 10/16/18 07:59 09/19/18 01:01 Pantoprazole (Protonix) 40 mg BID IVP 09/18/18 09:00 10/17/18 08:59 09/21/18 18:04 Prochlorperazine (Compazine) 10 mg Q6HR IVP 09/19/18 09:45 10/19/18 09:44 09/21/18 18:04 Quetiapine Fumarate (SEROquel) 50 mg BEFORE BREAKFAST ORAL 09/19/18 06:30 10/17/18 06:29 09/21/18 06:01 Quetiapine Fumarate (SEROquel) 300 mg QHS ORAL 09/18/18 21:00 10/16/18 22:14 09/20/18 21:57 Sertraline HCl (Zoloft) 200 mg ACBREAKFAST ORAL 09/19/18 06:30 10/17/18 06:29 09/21/18 06:01 Vancomycin HCl (Vanco rx to dose) 1 ea DAILY PRN MISC Per rx protocol 09/20/18 19:15 10/20/18 19:14 Vancomycin HCl 1 gm/Dextrose 275 ml @ 183.708 mls/hr Q12HR@1000,2200 IVPB 09/20/18 21:00 09/25/18 20:59 09/21/18 12:12 Zolpidem Tartrate (Ambien) 5 mg BEDTIME ORAL 09/18/18 21:00 09/24/18 20:59 09/20/18 21:39 Brandee Oliva M.D. Sep 21, 2018 19:14
--- NOTE | 2018-09-21 19:33 | NUR ---
HAND-OFF: Report given to Yoko CONTRERAS. Patient is stable.
--- NOTE | 2018-09-21 20:42 | NUR ---
NURSE NOTES: Patient is in bed, Aox4. Pain 7/10 epigastric. To give pain medication when due. Permacath patent with IV fluids running. Mother at bedside. Bed low, call light within reach.
--- NOTE | 2018-09-21 20:45 | Procedure Note ---
DATE OF PROCEDURE: 09/21/2018 SURGEON: Gary Pollock M.D. ANESTHESIOLOGIST: Bony Reis M.D. REFERRING PHYSICIAN: Otf Gama M.D. PROCEDURE: Upper endoscopy with biopsy. ANESTHESIA: Per Bony Reis M.D. INSTRUMENT: Olympus adult flexible upper endoscope. INDICATION: Upper GI bleeding. The procedure, risks, benefits, and possible consequences, including hemorrhage, aspiration, perforation and infection, and alternative treatments, were explained to the patient/legal guardian by Dr. Gary Pollock and the patient/legal guardian understood and accepted these risks. DESCRIPTION OF PROCEDURE: After informed consent was obtained and the patient was adequately sedated, Olympus upper endoscope was advanced from the mouth into the second portion of the duodenum and retroflexion was performed in the stomach. GE junction was at 35 cm from the incisors. At about 30 cm from the incisors, there was evidence of questionable pill-induced esophagitis. There was some white material stuck in the wall of the esophagus causing some oozing blood, possibly again pill-induced esophagitis. This was not seen in the prior endoscopy, so this is something new and again because of the location and because of the adherence of this white material to the lining, this is suspicious for pill-induced esophagitis. Biopsy from this area was obtained. The rest of the upper endoscopic exam grossly looked within normal limit. SUMMARY OF FINDINGS: Possible pill-induced esophagitis mid-esophagus at about 30 cm from the incisors, status post biopsy. RECOMMENDATIONS: Follow up biopsy results and treat accordingly. I want to thank, Dr. Gama, for this kind referral. Gary Pollock M.D. DR: Mayrbeth JOB#: [id number] CC: Otf Gama M.D.; Fax#: [phone] [facility]
--- NOTE | 2018-09-21 21:11 | Consultation ---
History of Present Illness General Chief Complaint: Vomiting Referring physician: CA CHU Reason for Consultation: UGIB Present Illness HPI 23-year-old female with history of chronic pancreatitis secondary to cystic fibrosis. the pt has hx of bipolar do and psychosis. the pt stated that she was more "manic" the pt is depressed and anxious. denied si/hi. the pt has low energy and anhedonia Allergies: Coded Allergies: CHLORHEXIDINE (Verified Allergy, Unknown, Rash, 09/16/18) Medication History Scheduled Lipase/Protease/Amylase (Creon Dr 3,000 Units Capsule), 2 EACH PO TID, (Reported ) [place] Carbonate* ([place]*), 20 MG ORAL DAILY, (Reported) Lorazepam* (Ativan*), 2 MG ORAL BID, (Reported) Pantoprazole* (Pantoprazole*), 40 MG ORAL DAILY, (Reported) Quetiapine Fumarate (Seroquel Xr), 50 MG ORAL ACBREAKFAST, (Reported) Quetiapine Fumarate (Seroquel Xr), 300 MG ORAL QHS, (Reported) Sertraline Hcl* (Zoloft*), 200 MG PO ACBREAKFAST, (Reported) Zolpidem Tartrate* (Ambien*), 10 MG ORAL BEDTIME, (Reported) [Tpn], OVER 12 HOURS, (Reported) Patient History Limited by: medical condition History Provided By: Patient, Medical Record, PMD Healthcare decision maker Resuscitation status Full Code Advanced Directive on File Past Medical/Surgical History Past Medical/Surgical History: (1) Fever (2) Epigastric pain (3) UGI bleed (4) Liver cirrhosis (5) Narcotic dependence (6) liver c (7) Cystic fibrosis (8) Esophageal varices Review of Systems Psychiatric: Reports: prior hx, anxiety, depressed feelings, emotional problems Physical Exam General Appearance: no apparent distress, alert Neurologic: oriented x 3, responsive, depressed affect Last 24 Hour Vital Signs Date Time Temp Pulse Resp B/P (MAP) Pulse Ox O2 Delivery O2 Flow Rate FiO2 09/21/18 15:53 98.4 76 16 97/64 (75) 95 09/21/18 11:49 86 20 98 09/21/18 11:48 97.8 78 15 99/65 99 Nasal Cannula 3 09/21/18 11:45 80 19 97/62 96 Nasal Cannula 3 09/21/18 11:36 78 16 91/59 96 Nasal Cannula 3 09/21/18 11:31 80 15 94/60 99 Nasal Cannula 3 09/21/18 11:26 97.1 86 20 94/61 99 Nasal Cannula 3 09/21/18 09:00 Room Air 09/21/18 08:13 77 15 Room Air 21 09/21/18 08:00 98.2 77 19 100/64 (76) 100 09/21/18 04:00 98.7 102 18 103/66 (78) 97 09/21/18 00:00 97.4 52 16 86/54 (65) 95 Intake and Output 09/20/18 09/21/18 18:59 06:59 Intake Total 1936 ml 1222.416 ml Balance 1936 ml 1222.416 ml Intake Oral 736 ml IV Total 1200 ml 1222.416 ml # Voids 3 Laboratory Tests Test 09/21/18 15:40 Urine Color Pale yellow Urine Appearance Clear Urine pH 6 (4.5-8.0) Urine Specific [place] 1.005 (1.005-1.035) Urine Protein Negative (NEGATIVE) Urine Glucose (UA) Negative (NEGATIVE) Urine Ketones Negative (NEGATIVE) Urine Blood Negative (NEGATIVE) Urine Nitrite Negative (NEGATIVE) Urine Bilirubin Negative (NEGATIVE) Urine Urobilinogen Normal MG/DL (0.0-1.0) Urine Leukocyte Esterase Negative (NEGATIVE) Height (Feet): 5 Height (Inches): 2.00 Weight (Pounds): 105 Medications Current Medications Medications (Trade) Dose Ordered Sig/Rudi Route PRN Reason Start Time Stop Time Status Last Admin Dose Admin Acetaminophen (Tylenol) 650 mg Q4H PRN ORAL Mild Pain/Temp > 100.5 09/20/18 17:15 10/20/18 17:14 09/20/18 17:14 Albuterol/ Ipratropium (Albuterol/ Ipratropium) 3 ml Q4H PRN HHN Shortness of Breath 09/19/18 16:45 09/24/18 16:44 09/19/18 16:49 Barium Sulfate (Readi-Cat 2) 450 ml NOW PRN ORAL Radiology Procedure 09/20/18 18:15 09/22/18 18:14 Bisacodyl (Dulcolax) 10 mg DAILYPRN PRN RECTAL Constipation 09/18/18 15:00 10/18/18 14:59 Calcium Carbonate (Tums) 500 mg Q3H PRN ORAL Abdominal cramps 09/20/18 12:45 10/20/18 12:44 09/20/18 13:13 Cefepime HCl 2 gm/ Dextrose 55 ml @ 110 mls/hr EVERY 12 HOURS IVPB 09/20/18 20:30 09/27/18 20:29 09/21/18 20:29 Dextrose/Sodium Chloride 1,000 ml @ 100 mls/hr Q10H IV 09/19/18 17:24 10/16/18 07:59 09/21/18 12:12 Diphenhydramine HCl (Benadryl) 50 mg Q6H PRN IVP Itching 09/18/18 08:00 10/16/18 07:59 09/21/18 18:05 Hydromorphone HCl (Dilaudid) 2 mg Q4H PRN IVP Severe Pain (Pain Scale 7-10) 09/19/18 21:45 09/26/18 21:44 09/21/18 21:07 Iopamidol (Isovue-300 100ml) 100 ml NOW PRN INJ Radiology Procedure 09/20/18 18:15 09/21/18 23:59 [place] Carbonate ([place] Carbonate) 150 mg DAILY ORAL 09/18/18 09:30 10/17/18 09:29 09/21/18 08:27 Lorazepam (Ativan) 2 mg BID ORAL 09/18/18 09:00 09/24/18 08:59 09/21/18 18:04 Ondansetron HCl (Zofran) 4 mg Q6H PRN IVP Nausea & Vomiting 09/18/18 08:00 10/16/18 07:59 09/19/18 01:01 Pantoprazole (Protonix) 40 mg BID IVP 09/18/18 09:00 10/17/18 08:59 09/21/18 18:04 Prochlorperazine (Compazine) 10 mg Q6HR IVP 09/19/18 09:45 10/19/18 09:44 09/21/18 18:04 Quetiapine Fumarate (SEROquel) 50 mg BEFORE BREAKFAST ORAL 09/19/18 06:30 10/17/18 06:29 09/21/18 06:01 Quetiapine Fumarate (SEROquel) 300 mg QHS ORAL 09/18/18 21:00 10/16/18 22:14 09/20/18 21:57 Sertraline HCl (Zoloft) 200 mg ACBREAKFAST ORAL 09/19/18 06:30 10/17/18 06:29 09/21/18 06:01 Vancomycin HCl (Vanco rx to dose) 1 ea DAILY PRN MISC Per rx protocol 09/20/18 19:15 10/20/18 19:14 Vancomycin HCl 1 gm/Dextrose 275 ml @ 183.708 mls/hr Q12HR@1000,2200 IVPB 09/20/18 21:00 09/25/18 20:59 09/21/18 12:12 Zolpidem Tartrate (Ambien) 5 mg BEDTIME ORAL 09/18/18 21:00 09/24/18 20:59 09/20/18 21:39 Assessment/Plan Problem List: (1) Bipolar disorder with psychotic features ICD Codes: F31.9 - Bipolar disorder, unspecified SNOMED: 10363276 Assessment/Plan lithium Seroquel Sly Montgomery MD Sep 21, 2018 21:11
[2018-09-21] MEDS: Zolpidem 5mg tab ORAL SCH (22:31)
[2018-09-22] VITALS: BP 99/59
[2018-09-22] MEDS: DiphenhydrAMINE 50mg/ml Inj IVP PRN ×3 (01:05→13:34)
[2018-09-22 04:00] VITALS: BP 110/69
[2018-09-22] MEDS: D5NS 1,000 ML IV SCH ×2 (05:24→15:24)
[2018-09-22] MEDS: Sertraline 100mg tab ORAL SCH (06:18)
--- NOTE | 2018-09-22 07:30 | NUR ---
NURSE NOTES: Patient is in bed awake and able to verbalize needs. Stable with no s/s acute distress at this time. Denies pain and was informed of new diet order not to eat red jello, verbalized understanding. Patient is comfortable in bed in locked position and call light within reach. IV fluids running as ordered. All needs met at this time. Will continue to monitor.
--- NOTE | 2018-09-22 07:49 | NUR ---
HAND-OFF: Report given to BEN López. Patient stable.
[2018-09-22 08:00] VITALS: BP 124/81
[2018-09-22] MEDS: LORazepam 1mg tab ORAL SCH ×2 (09:18→18:21)
[2018-09-22] MEDS: Cefepime HCl 2 GM in D5W 55 ML IVPB SCH (09:18)
[2018-09-22] MEDS: Pantoprazole Inj IVP SCH ×2 (09:18→18:21)
[2018-09-22] MEDS: Lithium Carbonate 150mg cap ORAL SCH (09:18)
[2018-09-22 09:21] LABS: HEMATOCRIT 32.6 % (37.0-47.0); HEMOGLOBIN 10.6 G/DL (12.0-16.0); MEAN CORPUSCULAR VOLUME 83 FL (80-99); PLATELET COUNT 75 K/UL (150-450); RED BLOOD COUNT 3.94 M/UL (4.20-5.40); RED CELL DISTRIBUTION WIDTH 16.8 % (11.6-14.8); WHITE BLOOD COUNT 3.4 K/UL (4.8-10.8)
[2018-09-22 09:32] LABS: ANION GAP 8 mmol/L (5-15); BLOOD UREA NITROGEN 4 mg/dL (7-18); CARBON DIOXIDE 28 MMOL/L (21-32); CHLORIDE 104 MMOL/L (98-107); CREATININE 0.7 MG/DL (0.55-1.30); POTASSIUM 3.3 MMOL/L (3.5-5.1); SODIUM 140 MMOL/L (136-145)
[2018-09-22] MEDS: Vancomycin 1gm/D5W 275ml IVPB SCH ×2 (09:54)
--- NOTE | 2018-09-22 10:18 | General Progress Note ---
Assessment/Plan Problem List: (1) Narcotic dependence ICD Codes: F11.20 - Opioid dependence, uncomplicated SNOMED: 99933616 (2) Epigastric pain ICD Codes: R10.13 - Epigastric pain SNOMED: 81984728 (3) UGI bleed ICD Codes: K92.2 - Gastrointestinal hemorrhage, unspecified SNOMED: 28755923 (4) liver c (5) Liver cirrhosis ICD Codes: K74.60 - Unspecified cirrhosis of liver SNOMED: 25775720 Status: stable Assessment/Plan We will continue Dilaudid as 2 mg IVP today and will change to PO tomorrow. Subjective Constitutional: Reports: malaise, weakness; Denies: chills, diaphoresis, fever HEENT: Denies: no symptoms, eye pain, blurred vision, tearing, double vision, ear pain, ear discharge, nose pain, nose congestion, throat pain, throat swelling, mouth pain, mouth swelling, other Cardiovascular: Denies: no symptoms, chest pain, edema, irregular heart rate, lightheadedness, palpitations, syncope, other Respiratory: Denies: no symptoms, cough, orthopnea, shortness of breath, SOB with excertion, SOB at rest, sputum, stridor, wheezing, other Gastrointestinal/Abdominal: Reports: abdominal pain, poor appetite Genitourinary: Denies: no symptoms, burning, discharge, frequency, flank pain, hematuria, incontinence, pain, urgency, other Neurologic/Psychiatric: Reports: anxiety, depressed, emotional problems Allergies: Coded Allergies: CHLORHEXIDINE (Verified Allergy, Unknown, Rash, 09/16/18) Subjective Pt still complains of severe abdominal pain at epigastric area. Although there is not much evidence to support the severity of pain. I d/w her to change her Dilaudid to PO since she is on soft diet. She agreed and I will do the change tomorrow. Objective Last 24 Hour Vital Signs Date Time Temp Pulse Resp B/P (MAP) Pulse Ox O2 Delivery O2 Flow Rate FiO2 09/22/18 09:00 Room Air 09/22/18 08:40 Nasal Cannula 3.0 32 09/22/18 08:40 87 18 Nasal Cannula 3.0 32 09/22/18 08:40 95 Nasal Cannula 3.0 32 09/22/18 08:00 97.2 104 18 124/81 (95) 100 09/22/18 04:00 97.8 109 19 110/69 (83) 95 09/22/18 00:00 98.0 111 19 99/59 (72) 95 09/21/18 23:20 92 18 Nasal Cannula 3.0 32 09/21/18 21:00 Room Air 09/21/18 20:00 97.5 113 19 104/70 (81) 92 09/21/18 15:53 98.4 76 16 97/64 (75) 95 09/21/18 11:49 86 20 98 09/21/18 11:48 97.8 78 15 99/65 99 Nasal Cannula 3 09/21/18 11:45 80 19 97/62 96 Nasal Cannula 3 09/21/18 11:36 78 16 91/59 96 Nasal Cannula 3 09/21/18 11:31 80 15 94/60 99 Nasal Cannula 3 09/21/18 11:26 97.1 86 20 94/61 99 Nasal Cannula 3 Intake and Output 09/21/18 09/22/18 19:00 07:00 Intake Total 2035.000 ml 1480 ml Balance 2035.000 ml 1480 ml Intake Oral 605 ml 780 ml IV Total 1430.000 ml 700 ml # Voids 3 Laboratory Tests 09/21/18 15:40: Urine Color Pale yellow, Urine Appearance Clear, Urine pH 6, Urine Specific [place] 1.005, Urine Protein Negative, Urine Glucose (UA) Negative, Urine Ketones Negative, Urine Blood Negative, Urine Nitrite Negative, Urine Bilirubin Negative, Urine Urobilinogen Normal, Urine Leukocyte Esterase Negative 09/22/18 09:00: White Blood Count 3.4L, Red Blood Count 3.94L, Hemoglobin 10.6L, Hematocrit 32.6L, Mean Corpuscular Volume 83, Mean Corpuscular Hemoglobin 26.8L, Mean Corpuscular Hemoglobin Concent 32.4, Red Cell Distribution Width 16.8H, Platelet Count 75L, Mean Platelet Volume 9.2, Neutrophils (%) (Auto) , Lymphocytes (%) (Auto) , Monocytes (%) (Auto) , Eosinophils (%) (Auto) , Basophils (%) (Auto) , Neutrophils % (Manual) [Pending], Lymphocytes % (Manual) [Pending], Platelet Estimate [Pending], Platelet Morphology [Pending], Sodium Level 140, Potassium Level 3.3L, Chloride Level 104, Carbon Dioxide Level 28, Anion Gap 8, Blood Urea Nitrogen 4L, Creatinine 0.7, Estimat Glomerular Filtration Rate > 60, Glucose Level 212H, Calcium Level 8.0L, Vancomycin Level Trough 6.7 Height (Feet): 5 Height (Inches): 2.00 Weight (Pounds): 105 General Appearance: WD/WN EENT: PERRL/EOMI Neck: non-tender, supple Cardiovascular: normal rate Respiratory/Chest: lungs clear Abdomen: soft Edema: no edema noted Arm (L), no edema noted Arm (R), no edema noted Leg (L), no edema noted Leg (R), no edema noted Pedal (L), no edema noted Pedal (R), no edema noted Generalized 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
--- NOTE | 2018-09-22 11:45 | NUR ---
NURSE NOTES: Notified MD of lab results. No new orders. Will continue to monitor patient.
[2018-09-22 11:53] VITALS: BP 99/63
--- NOTE | 2018-09-22 12:07 | General Progress Note ---
Assessment/Plan Problem List: (1) Bipolar disorder with psychotic features ICD Codes: F31.9 - Bipolar disorder, unspecified SNOMED: 38153117 Assessment/Plan lithium 300mg qhs Seroquel 400mg qhs Zoloft 200mg po q daily ativan prn Subjective Neurologic/Psychiatric: Reports: anxiety, depressed, emotional problems Allergies: Coded Allergies: CHLORHEXIDINE (Verified Allergy, Unknown, Rash, 09/16/18) Objective Last 24 Hour Vital Signs Date Time Temp Pulse Resp B/P (MAP) Pulse Ox O2 Delivery O2 Flow Rate FiO2 09/22/18 11:53 98.6 96 18 99/63 (75) 96 09/22/18 09:00 Room Air 09/22/18 08:40 Nasal Cannula 3.0 32 09/22/18 08:40 87 18 Nasal Cannula 3.0 32 09/22/18 08:40 95 Nasal Cannula 3.0 32 09/22/18 08:00 97.2 104 18 124/81 (95) 100 09/22/18 04:00 97.8 109 19 110/69 (83) 95 09/22/18 00:00 98.0 111 19 99/59 (72) 95 09/21/18 23:20 92 18 Nasal Cannula 3.0 32 09/21/18 21:00 Room Air 09/21/18 20:00 97.5 113 19 104/70 (81) 92 09/21/18 15:53 98.4 76 16 97/64 (75) 95 Intake and Output 09/21/18 09/22/18 19:00 07:00 Intake Total 2035.000 ml 1480 ml Balance 2035.000 ml 1480 ml Intake Oral 605 ml 780 ml IV Total 1430.000 ml 700 ml # Voids 3 Laboratory Tests 09/21/18 15:40: Urine Color Pale yellow, Urine Appearance Clear, Urine pH 6, Urine Specific [place] 1.005, Urine Protein Negative, Urine Glucose (UA) Negative, Urine Ketones Negative, Urine Blood Negative, Urine Nitrite Negative, Urine Bilirubin Negative, Urine Urobilinogen Normal, Urine Leukocyte Esterase Negative 09/22/18 09:00: White Blood Count 3.4L, Red Blood Count 3.94L, Hemoglobin 10.6L, Hematocrit 32.6L, Mean Corpuscular Volume 83, Mean Corpuscular Hemoglobin 26.8L, Mean Corpuscular Hemoglobin Concent 32.4, Red Cell Distribution Width 16.8H, Platelet Count 75L, Mean Platelet Volume 9.2, Neutrophils (%) (Auto) , Lymphocytes (%) (Auto) , Monocytes (%) (Auto) , Eosinophils (%) (Auto) , Basophils (%) (Auto) , Differential Total Cells Counted 100, Neutrophils % ( Manual) 60, Lymphocytes % (Manual) 27, Monocytes % (Manual) 11H, Eosinophils % ( Manual) 2, Basophils % (Manual) 0, Band Neutrophils 0, Platelet Estimate DecreasedL, Platelet Morphology Normal, Hypochromasia 1+, Anisocytosis 1+, Sodium Level 140, Potassium Level 3.3L, Chloride Level 104, Carbon Dioxide Level 28, Anion Gap 8, Blood Urea Nitrogen 4L, Creatinine 0.7, Estimat Glomerular Filtration Rate > 60, Glucose Level 212H, Calcium Level 8.0L, Vancomycin Level Trough 6.7 Height (Feet): 5 Height (Inches): 2.00 Weight (Pounds): 105 General Appearance: no apparent distress, alert, thin Neurologic: oriented x 3, responsive, depressed affect Sly Muller MD Sep 22, 2018 12:07
[2018-09-22] MEDS ORDERED: LORazepam 1mg tab ORAL PRN (12:15)
--- NOTE | 2018-09-22 13:10 | GI Progress Note ---
Assessment/Plan Problems: (1) Pill-induced gastritis ICD Codes: K29.70 - Gastritis, unspecified, without bleeding; T50.905A - Adverse effect of unspecified drugs, medicaments and biological substances, initial encounter SNOMED: 77169596 (2) Narcotic dependence ICD Codes: F11.20 - Opioid dependence, uncomplicated SNOMED: 17850732 (3) UGI bleed ICD Codes: K92.2 - Gastrointestinal hemorrhage, unspecified SNOMED: 35890286 (4) Epigastric pain ICD Codes: R10.13 - Epigastric pain SNOMED: 68706380 (5) Bipolar disorder with psychotic features ICD Codes: F31.9 - Bipolar disorder, unspecified SNOMED: 52726267 Status: stable Status Narrative Discussed with Dr. Pollock Assessment/Plan SUMMARY OF FINDINGS: Possible pill-induced esophagitis, mid-esophagus at about 30 cm from the incisors, status post biopsy. RECOMMENDATIONS: Continue PPI Okay to advance diet Zofran as needed Pain management Monitor H&H, transfuse as needed Follow-up psychiatric consult Follow-up labs The patient was seen and examined at bedside and all new and available data was reviewed in the patients chart. I agree with the above findings, impression and plan. (Patient seen earlier today. Signature stamp does not reflect patient encounter time.). - Gary Pollock MD Subjective Subjective Patient still complains of abdominal pain Patient stated prior to her admission she took 4 tablets of ibuprofen 650 mg 1 day Has complaint of nausea No reports of emesis yesterday Objective Last 24 Hour Vital Signs Date Time Temp Pulse Resp B/P (MAP) Pulse Ox O2 Delivery O2 Flow Rate FiO2 09/22/18 11:53 98.6 96 18 99/63 (75) 96 09/22/18 09:00 Room Air 09/22/18 08:40 Nasal Cannula 3.0 32 09/22/18 08:40 87 18 Nasal Cannula 3.0 32 09/22/18 08:40 95 Nasal Cannula 3.0 32 09/22/18 08:00 97.2 104 18 124/81 (95) 100 09/22/18 04:00 97.8 109 19 110/69 (83) 95 09/22/18 00:00 98.0 111 19 99/59 (72) 95 09/21/18 23:20 92 18 Nasal Cannula 3.0 32 09/21/18 21:00 Room Air 09/21/18 20:00 97.5 113 19 104/70 (81) 92 09/21/18 15:53 98.4 76 16 97/64 (75) 95 Intake and Output 09/21/18 09/22/18 19:00 07:00 Intake Total 2035.000 ml 1480 ml Balance 2035.000 ml 1480 ml Intake Oral 605 ml 780 ml IV Total 1430.000 ml 700 ml # Voids 3 Laboratory Tests Test 09/21/18 15:40 09/22/18 09:00 Urine Color Pale yellow Urine Appearance Clear Urine pH 6 (4.5-8.0) Urine Specific [place] 1.005 (1.005-1.035) Urine Protein Negative (NEGATIVE) Urine Glucose (UA) Negative (NEGATIVE) Urine Ketones Negative (NEGATIVE) Urine Blood Negative (NEGATIVE) Urine Nitrite Negative (NEGATIVE) Urine Bilirubin Negative (NEGATIVE) Urine Urobilinogen Normal MG/DL (0.0-1.0) Urine Leukocyte Esterase Negative (NEGATIVE) White Blood Count 3.4 K/UL (4.8-10.8) L Red Blood Count 3.94 M/UL (4.20-5.40) L Hemoglobin 10.6 G/DL (12.0-16.0) L Hematocrit 32.6 % (37.0-47.0) L Mean Corpuscular Volume 83 FL (80-99) Mean Corpuscular Hemoglobin 26.8 PG (27.0-31.0) L Mean Corpuscular Hemoglobin Concent 32.4 G/DL (32.0-36.0) Red Cell Distribution Width 16.8 % (11.6-14.8) H Platelet Count 75 K/UL (150-450) L Mean Platelet Volume 9.2 FL (6.5-10.1) Neutrophils (%) (Auto) % (45.0-75.0) Lymphocytes (%) (Auto) % (20.0-45.0) Monocytes (%) (Auto) % (1.0-10.0) Eosinophils (%) (Auto) % (0.0-3.0) Basophils (%) (Auto) % (0.0-2.0) Differential Total Cells Counted 100 Neutrophils % (Manual) 60 % (45-75) Lymphocytes % (Manual) 27 % (20-45) Monocytes % (Manual) 11 % (1-10) H Eosinophils % (Manual) 2 % (0-3) Basophils % (Manual) 0 % (0-2) Band Neutrophils 0 % (0-8) Platelet Estimate Decreased L Platelet Morphology Normal Hypochromasia 1+ Anisocytosis 1+ Sodium Level 140 MMOL/L (136-145) Potassium Level 3.3 MMOL/L (3.5-5.1) L Chloride Level 104 MMOL/L (98-107) Carbon Dioxide Level 28 MMOL/L (21-32) Anion Gap 8 mmol/L (5-15) Blood Urea Nitrogen 4 mg/dL (7-18) L Creatinine 0.7 MG/DL (0.55-1.30) Estimat Glomerular Filtration Rate > 60 mL/min (>60) Glucose Level 212 MG/DL (74-106) H Calcium Level 8.0 MG/DL (8.5-10.1) L Vancomycin Level Trough 6.7 ug/mL (5.0-12.0) Height (Feet): 5 Height (Inches): 2.00 Weight (Pounds): 105 General Appearance: WD/WN, no apparent distress, alert Cardiovascular: normal rate Respiratory/Chest: normal breath sounds, no respiratory distress Abdominal Exam: normal bowel sounds, non tender, soft Extremities: normal range of motion, non-tender Chapincito Olvera NP Sep 22, 2018 13:10
[2018-09-22] MEDS ORDERED: DiphenhydrAMINE 50mg/ml Inj IVP PRN (14:00)
[2018-09-22] MEDS ORDERED: D5NS 1000ml IV ONE (14:51)
[2018-09-22] MEDS ORDERED: Tubing IV Secondary IV ONE (14:51)
--- NOTE | 2018-09-22 14:53 | General Progress Note ---
Assessment/Plan Assessment/Plan S: I have lots of pain O: appears in no distress, tolerating the PO clear liquid ,Keep requesting increase in frequency of IV dilaudid PHYSICAL EXAMINATION: HEAD AND NECK: Atraumatic and normocephalic. CHEST: Clear to auscultation. No wheezing. No crackles. HEART: S1 and S2. Regular rate and rhythm. ABDOMEN: Soft. No organomegaly. Positive for scars from prior surgery. Positive for tenderness in the upper abdomen. NEUROLOGIC: Awake, alert, and oriented x3. MUSCULOSKELETAL: No gross lateralized motor deficit. PSych: mood and affect is anxious Meds: reviewed and reconciled, including Dilaudid-IV ASSESSMENT AND PLAN: 1. Hemoptysis: upper glottis, vs Upper GI bleed. source!? ( GE-junction , Laryngo/Oropharyngeal !) Hgb remains stable 2. Cirrhosis ( unverified history) 3. Chronic pain. 4. Pancytopenia. 5. Cystic Fibrosis: with TPN and outpatient management 5. GI and DVT prophylaxis. PLAN OF CARE: No new episode of bleeding Discussed the care with ID, ENT and GI. patient is stable for outpatient followup. Will followup with established pain mgt and PCP Subjective Allergies: Coded Allergies: CHLORHEXIDINE (Verified Allergy, Unknown, Rash, 09/16/18) Objective Last 24 Hour Vital Signs Date Time Temp Pulse Resp B/P (MAP) Pulse Ox O2 Delivery O2 Flow Rate FiO2 09/22/18 11:53 98.6 96 18 99/63 (75) 96 09/22/18 09:00 Room Air 09/22/18 08:40 Nasal Cannula 3.0 32 09/22/18 08:40 87 18 Nasal Cannula 3.0 32 09/22/18 08:40 95 Nasal Cannula 3.0 32 09/22/18 08:00 97.2 104 18 124/81 (95) 100 09/22/18 04:00 97.8 109 19 110/69 (83) 95 09/22/18 00:00 98.0 111 19 99/59 (72) 95 09/21/18 23:20 92 18 Nasal Cannula 3.0 32 09/21/18 21:00 Room Air 09/21/18 20:00 97.5 113 19 104/70 (81) 92 09/21/18 15:53 98.4 76 16 97/64 (75) 95 Intake and Output 09/21/18 09/22/18 19:00 07:00 Intake Total 2035.000 ml 1480 ml Balance 2035.000 ml 1480 ml Intake Oral 605 ml 780 ml IV Total 1430.000 ml 700 ml # Voids 3 Laboratory Tests 09/21/18 15:40: Urine Color Pale yellow, Urine Appearance Clear, Urine pH 6, Urine Specific [place] 1.005, Urine Protein Negative, Urine Glucose (UA) Negative, Urine Ketones Negative, Urine Blood Negative, Urine Nitrite Negative, Urine Bilirubin Negative, Urine Urobilinogen Normal, Urine Leukocyte Esterase Negative 09/22/18 09:00: White Blood Count 3.4L, Red Blood Count 3.94L, Hemoglobin 10.6L, Hematocrit 32.6L, Mean Corpuscular Volume 83, Mean Corpuscular Hemoglobin 26.8L, Mean Corpuscular Hemoglobin Concent 32.4, Red Cell Distribution Width 16.8H, Platelet Count 75L, Mean Platelet Volume 9.2, Neutrophils (%) (Auto) , Lymphocytes (%) (Auto) , Monocytes (%) (Auto) , Eosinophils (%) (Auto) , Basophils (%) (Auto) , Differential Total Cells Counted 100, Neutrophils % ( Manual) 60, Lymphocytes % (Manual) 27, Monocytes % (Manual) 11H, Eosinophils % ( Manual) 2, Basophils % (Manual) 0, Band Neutrophils 0, Platelet Estimate DecreasedL, Platelet Morphology Normal, Hypochromasia 1+, Anisocytosis 1+, Sodium Level 140, Potassium Level 3.3L, Chloride Level 104, Carbon Dioxide Level 28, Anion Gap 8, Blood Urea Nitrogen 4L, Creatinine 0.7, Estimat Glomerular Filtration Rate > 60, Glucose Level 212H, Calcium Level 8.0L, Vancomycin Level Trough 6.7 Height (Feet): 5 Height (Inches): 2.00 Weight (Pounds): 105 Otf Gama MD Sep 22, 2018 14:53
[2018-09-22 16:00] VITALS: BP 107/66
--- NOTE | 2018-09-22 16:52 | Infectious Diseases Prog Note ---
Assessment/Plan Problems: (1) Acute bacterial tonsillitis Assessment & Plan: will switch vancomycin and cefepime empirically to Augmentin to treat her tonsillitis for 7 more days (2) Fever Assessment & Plan: resolved, suspect due to the above, no evidence of sepsis , will stop vancomycin and cefepime empirically , blood culture x2 is negative which rule out bacteremia and UA is negative . CXR no evidence of pneumonia (3) UGI bleed Assessment & Plan: S/P EGD X2 , GI AND ENT are following . monitor H/H, transfuse blood as needed (4) Liver cirrhosis Assessment & Plan: supportive care, follow up with GI (5) Cystic fibrosis Assessment & Plan: continue inhalers and antibiotics Subjective Constitutional: Reports: no symptoms HEENT: Reports: congestion Respiratory: Reports: no symptoms Breasts: Reports: no symptoms Cardiovascular: Reports: no symptoms Gastrointestinal/Abdominal: Reports: bloating Genitourinary: Reports: no symptoms Neurologic: Reports: no symptoms Psychiatric: Reports: no symptoms Skin: Reports: no symptoms Endocrine: Reports: no symptoms Hematologic: Reports: no symptoms Musculoskeletal: Reports: no symptoms Allergies: Coded Allergies: CHLORHEXIDINE (Verified Allergy, Unknown, Rash, 09/16/18) Objective Vital Signs Last 24 Hour Vital Signs Date Time Temp Pulse Resp B/P (MAP) Pulse Ox O2 Delivery O2 Flow Rate FiO2 09/22/18 11:53 98.6 96 18 99/63 (75) 96 09/22/18 09:00 Room Air 09/22/18 08:40 Nasal Cannula 3.0 32 09/22/18 08:40 87 18 Nasal Cannula 3.0 32 09/22/18 08:40 95 Nasal Cannula 3.0 32 09/22/18 08:00 97.2 104 18 124/81 (95) 100 09/22/18 04:00 97.8 109 19 110/69 (83) 95 09/22/18 00:00 98.0 111 19 99/59 (72) 95 09/21/18 23:20 92 18 Nasal Cannula 3.0 32 09/21/18 21:00 Room Air 09/21/18 20:00 97.5 113 19 104/70 (81) 92 Height (Feet): 5 Height (Inches): 2.00 Weight (Pounds): 105 General Appearance: WD/WN, no acute distress HEENT: normocephalic, atraumatic, anicteric, mucous membranes moist, PERRL, supple, no JVD, tonsils swollen, other - whitish exudates Respiratory/Chest: chest wall non-tender, lungs clear, normal breath sounds, no respiratory distress, no accessory muscle use Cardiovascular: normal peripheral pulses, normal rate, regular rhythm, no gallop/murmur, no JVD Abdomen: normal bowel sounds, no organomegaly, non distended, no mass, tender Genitourinary: normal external genitalia Extremities: no cyanosis, no clubbing Skin: no rash, no lesions, no ulcers Neurologic/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, no motor/sensory deficits, alert, oriented x 3, responsive Lymphatic: no neck adenopathy, no groin adenopathy Musculoskeletal: normal muscle bulk, no effusion Microbiology Date/Time Source Procedure Growth Status 09/20/18 18:40 Blood Blood Culture - Preliminary NO GROWTH AFTER 24 HOURS Resulted 09/20/18 18:35 Blood Blood Culture - Preliminary NO GROWTH AFTER 24 HOURS Resulted Laboratory Tests Test 09/22/18 09:00 White Blood Count 3.4 K/UL (4.8-10.8) L Red Blood Count 3.94 M/UL (4.20-5.40) L Hemoglobin 10.6 G/DL (12.0-16.0) L Hematocrit 32.6 % (37.0-47.0) L Mean Corpuscular Volume 83 FL (80-99) Mean Corpuscular Hemoglobin 26.8 PG (27.0-31.0) L Mean Corpuscular Hemoglobin Concent 32.4 G/DL (32.0-36.0) Red Cell Distribution Width 16.8 % (11.6-14.8) H Platelet Count 75 K/UL (150-450) L Mean Platelet Volume 9.2 FL (6.5-10.1) Neutrophils (%) (Auto) % (45.0-75.0) Lymphocytes (%) (Auto) % (20.0-45.0) Monocytes (%) (Auto) % (1.0-10.0) Eosinophils (%) (Auto) % (0.0-3.0) Basophils (%) (Auto) % (0.0-2.0) Differential Total Cells Counted 100 Neutrophils % (Manual) 60 % (45-75) Lymphocytes % (Manual) 27 % (20-45) Monocytes % (Manual) 11 % (1-10) H Eosinophils % (Manual) 2 % (0-3) Basophils % (Manual) 0 % (0-2) Band Neutrophils 0 % (0-8) Platelet Estimate Decreased L Platelet Morphology Normal Hypochromasia 1+ Anisocytosis 1+ Sodium Level 140 MMOL/L (136-145) Potassium Level 3.3 MMOL/L (3.5-5.1) L Chloride Level 104 MMOL/L (98-107) Carbon Dioxide Level 28 MMOL/L (21-32) Anion Gap 8 mmol/L (5-15) Blood Urea Nitrogen 4 mg/dL (7-18) L Creatinine 0.7 MG/DL (0.55-1.30) Estimat Glomerular Filtration Rate > 60 mL/min (>60) Glucose Level 212 MG/DL (74-106) H Calcium Level 8.0 MG/DL (8.5-10.1) L Vancomycin Level Trough 6.7 ug/mL (5.0-12.0) Current Medications Medications (Trade) Dose Ordered Sig/Rudi Route PRN Reason Start Time Stop Time Status Last Admin Dose Admin Acetaminophen (Tylenol) 650 mg Q4H PRN ORAL Mild Pain/Temp > 100.5 09/20/18 17:15 10/20/18 17:14 09/20/18 17:14 Albuterol/ Ipratropium (Albuterol/ Ipratropium) 3 ml Q4H PRN HHN Shortness of Breath 09/19/18 16:45 09/24/18 16:44 09/19/18 16:49 Barium Sulfate (Readi-Cat 2) 450 ml NOW PRN ORAL Radiology Procedure 09/20/18 18:15 09/22/18 18:14 Bisacodyl (Dulcolax) 10 mg DAILYPRN PRN RECTAL Constipation 09/18/18 15:00 10/18/18 14:59 Calcium Carbonate (Tums) 500 mg Q3H PRN ORAL Abdominal cramps 09/20/18 12:45 10/20/18 12:44 09/20/18 13:13 Cefepime HCl 2 gm/ Dextrose 55 ml @ 110 mls/hr EVERY 12 HOURS IVPB 09/20/18 20:30 09/27/18 20:29 09/22/18 09:18 Dextrose/Sodium Chloride 1,000 ml @ 100 mls/hr Q10H IV 09/19/18 17:24 10/16/18 07:59 09/22/18 05:24 Diphenhydramine HCl (Benadryl) 50 mg Q4H PRN IVP Itching 09/22/18 14:00 10/22/18 13:59 Hydromorphone HCl (Dilaudid) 2 mg Q4H PRN IVP Severe Pain (Pain Scale 7-10) 09/19/18 21:45 09/26/18 21:44 09/22/18 11:13 Landrum Carbonate (Landrum Carbonate) 300 mg BEDTIME ORAL 09/22/18 21:00 10/22/18 20:59 Lorazepam (Ativan) 2 mg BID ORAL 09/18/18 09:00 09/24/18 08:59 09/22/18 09:18 Lorazepam (Ativan) 2 mg Q6H PRN ORAL Anxiety 09/22/18 12:15 09/29/18 12:14 Ondansetron HCl (Zofran) 4 mg Q6H PRN IVP Nausea & Vomiting 09/18/18 08:00 10/16/18 07:59 09/19/18 01:01 Pantoprazole (Protonix) 40 mg BID IVP 09/18/18 09:00 10/17/18 08:59 09/22/18 09:18 Prochlorperazine (Compazine) 10 mg Q6HR IVP 09/19/18 09:45 10/19/18 09:44 09/22/18 12:05 Quetiapine Fumarate (SEROquel) 400 mg QHS ORAL 09/22/18 21:00 10/22/18 20:59 Sertraline HCl (Zoloft) 200 mg ACBREAKFAST ORAL 09/19/18 06:30 10/17/18 06:29 09/22/18 06:18 Vancomycin HCl (Vanco rx to dose) 1 ea DAILY PRN MISC Per rx protocol 09/20/18 19:15 10/20/18 19:14 Vancomycin HCl 1 gm/Dextrose 275 ml @ 183.708 mls/hr Q8H IVPB 09/22/18 18:00 09/27/18 17:59 Zolpidem Tartrate (Ambien) 5 mg BEDTIME ORAL 09/18/18 21:00 09/24/18 20:59 09/21/18 22:31 Brandee Oliva M.D. Sep 22, 2018 16:52
[2018-09-22] MEDS ORDERED: Vancomycin 1gm/D5W 275ml IVPB SCH ×2 (18:00)
--- NOTE | 2018-09-22 18:15 | Consultation ---
DATE OF CONSULTATION: 09/22/2018 INFECTIOUS DISEASES CONSULTATION CONSULTING PHYSICIAN: Brandee Oliva M.D. REQUESTING PHYSICIAN: Otf Gama M.D. REASON FOR CONSULTATION: Fever, tonsillitis, rule out sepsis in a patient with cystic fibrosis. HISTORY OF PRESENT ILLNESS: The patient is a 23-year-old, female with past medical history of cystic fibrosis who has been followed by [facility] team, liver cirrhosis, and chronic pancreatitis presented to [facility] emergency room for vomiting blood and severe epigastric abdominal pain. The patient had history of liver cirrhosis due to cystic fibrosis and she had upper GI bleeding over the last year due to Swathi-Danielle tear and the other one unknown source. The patient denied any alcohol drinking recently. Denied any sick contact or recent travel. The patient was admitted to the hospital for further evaluation of her upper GI bleeding. GI team was involved. The patient underwent endoscopy for seizure which showed gastritis on September 17, 2018 and she tolerated the procedure well. On September 20, 2018, the patient was spiking fever of 101.6 so Infectious Diseases consultation was requested for antibiotics treatment and further management. The patient complained of sore throat and difficulty swallowing over the last couple of days and she underwent another EGD which showed pill-induced esophagitis and gastritis but no other clear source of upper GI bleeding. REVIEW OF SYSTEM: A 14-point of system reviewed were all negative apart from the one I mentioned above in my History and Physical. PAST MEDICAL HISTORY: Significant for cystic fibrosis, liver cirrhosis, chronic pancreatitis due to cystic fibrosis. PAST SURGICAL HISTORY: She had right upper chest Port-A-Cath placement. SOCIAL HISTORY: The patient lives at home with family. Denied using any drugs, tobacco, or alcohol. ALLERGIES: She is allergic to chlorhexidine with rash. MEDICATIONS: The patient is on [place], Benadryl, Ativan, Tylenol, Tums, Dilaudid, DuoNeb, Compazine, sertraline, zolpidem, bisacodyl, lorazepam, pantoprazole, Zofran. LABORATORY AND DIAGNOSTIC DATA: White count 5.6, hemoglobin of 10.5, BUN of 8 and creatinine of 0.8. AST of 24 and ALT of 32. Urinalysis on September 16, 2018 showed +1 leukocyte esterase, rest is negative. IMAGING: CT chest x-ray on admission, showed no acute finding. Abdominal ultrasound on admission showed fatty infiltration of the liver status post cholecystectomy, status post splenectomy, and limited study due to bowel gas. Abdominal pelvis CT scan showed partial resection of the pancreas with surgical material and calcification status post cholecystectomy, hepatic steatosis, colonic stool burden, constipation related, no bowel obstruction, no free intraperitoneal air, significant distention of the urinary bladder and trace left pleural effusion. PHYSICAL EXAMINATION: VITAL SIGNS: Temperature 101.6, pulse 122, respirations 21, blood pressure 108/69, pulse 98% on 3 liters nasal cannula. GENERAL: Young female, lying in bed, awake, alert, oriented, not in acute distress. HEENT: Normocephalic and atraumatic. Pupils are reactive to light equally. Moist oral mucosa. Throat exam, bilateral whitish exudate on both tonsils. NECK: Supple. No lymphadenopathy. CARDIOVASCULAR: Regular rate and rhythm. No murmur or gallop. LUNGS: Clear bilaterally. No wheezing or rhonchi. Normal breathing efforts. ABDOMEN: Soft. Tender in the right upper quadrant. U-shape surgical scar due to recent partial pancreatectomy, splenectomy, and cholecystectomy. No rebound. No organomegaly. No ascites. EXTREMITIES: no edema or cyanosis. SKIN: No rash. No hives. ASSESSMENT AND RECOMMENDATION: 1. Acute tonsillitis. We will start the patient on vancomycin and cefepime empirically to cover for possible sepsis. Pending culture results. We will deescalate antibiotics to oral Augmentin as her infection workup came back negative. 2. Fever rule out sepsis suspect due to the above. We will start vancomycin and cefepime empirically. Send blood culture x2 to rule out bacteremia and we will obtain chest x-ray also to rule out pneumonia. We will deescalate antibiotics based on culture results. 3. Upper GI bleeding status post EGD x2. GI and ENT following. Monitor H and H. Transfuse blood as needed. Continue PPI. 4. Liver cirrhosis. Continue supportive care. Follow up with GI. 5. Cystic fibrosis. Continue inhalers and antibiotics. Follow up with pulmonary clinic at [facility]. Thank you for the consult. ID will continue to follow. Brandee Oliva M.D. DR: Carola JOB#: [id number] CC: MIKE
--- NOTE | 2018-09-22 19:54 | NUR ---
HAND-OFF: Report given to Jaz MARQUEZ. Patient is stable. Addendum: 09/22/18 at 1957 by KAIT DIAZ RN NURSE NOTES: Patient discharged home as ordered. Patient is stable and does not have any s/s acute distress. Patient was given thorough discharge instructions, verbalized understanding. Patient has a right upper chest portacath. Patient's skin is clean, dry, and intact. All prescriptions and belongings given to patient. Patient was instructed to follow up with her primary pain management doctor as ordered by Dr. Keating, verbalized understanding. Patient assisted downstairs by ANGELA.
[2018-09-22] MEDS ORDERED: Lithium Carbonate 150mg cap ORAL SCH (21:00)
--- NOTE | 2018-09-22 22:32 | General Progress Note ---
Assessment/Plan Assessment/Plan Assessment and Recs: # Pancytopenia with a history of chronic pancreatitis, cystic fibrosis, liver cirrhosis, and having appendectomy, cholecystectomy, splenectomy, and total pancreatectomy with total islet transplant as per patient. --> obtain hepatitis panel and hiv since first time here --> may consider a us abdomen though architecture to be altered given trasplant , and Whipple like surgery --> continue pancrealipase, creon, she takes as outpatient --> consider neupogen, procrit, transfusion but only on a prn basis --> DOES HAVE IRON DEIFICIENCY, if hgb lower start on iv iron # Anemia due to UGI bleed with a biopsy that shows gastritis --> appreciate gi recommendations --> closely monitor and trend as needed # Epigastric pain likely due to bleeding --> egd results reviewed --> continue on ivf --> ppi bid The timing of this note does not necessarily reflect the time of the patient was seen Greatly appreciate consultation! Subjective Constitutional: Denies: no symptoms, chills, diaphoresis, fever, malaise, weakness, other HEENT: Denies: no symptoms, eye pain, blurred vision, tearing, double vision, ear pain, ear discharge, nose pain, nose congestion, throat pain, throat swelling, mouth pain, mouth swelling, other Cardiovascular: Denies: no symptoms, chest pain, edema, irregular heart rate, lightheadedness, palpitations, syncope, other Respiratory: Denies: no symptoms, cough, orthopnea, shortness of breath, SOB with excertion, SOB at rest, sputum, stridor, wheezing, other Gastrointestinal/Abdominal: Denies: no symptoms, abdomen distended, abdominal pain, black stools, tarry stools, blood in stool, constipated, diarrhea, difficulty swallowing, nausea, poor appetite, poor fluid intake, rectal bleeding , vomiting, other Genitourinary: Denies: no symptoms, burning, discharge, frequency, flank pain, hematuria, incontinence, pain, urgency, other Neurologic/Psychiatric: Denies: no symptoms, anxiety, depressed, emotional problems, headache, numbness, paresthesia, pre-existing deficit, seizure, tingling, tremors, weakness, other Endocrine: Denies: no symptoms, excessive sweating, flushing, intolerance to cold, intolerance to heat, increased hunger, increased thirst, increased urine, unexplained weight gain, unexplained weight loss, other Hematologic/Lymphatic: Denies: no symptoms, anemia, easy bleeding, easy bruising, other Allergies: Coded Allergies: CHLORHEXIDINE (Verified Allergy, Unknown, Rash, 09/16/18) Subjective 09/18: blood clots were vomited today and started her on a ppi, seen by gi 09/22 seen by bedside, awake, appears in no distress, requesting increase in frequency of IV dilaudid Objective Last 24 Hour Vital Signs Date Time Temp Pulse Resp B/P (MAP) Pulse Ox O2 Delivery O2 Flow Rate FiO2 09/22/18 20:59 Nasal Cannula 3.0 32 09/22/18 20:59 88 18 Nasal Cannula 3.0 32 09/22/18 16:00 98.6 119 18 107/66 (80) 99 09/22/18 11:53 98.6 96 18 99/63 (75) 96 09/22/18 09:00 Room Air 09/22/18 08:40 Nasal Cannula 3.0 32 09/22/18 08:40 87 18 Nasal Cannula 3.0 32 09/22/18 08:40 95 Nasal Cannula 3.0 32 09/22/18 08:00 97.2 104 18 124/81 (95) 100 09/22/18 04:00 97.8 109 19 110/69 (83) 95 09/22/18 00:00 98.0 111 19 99/59 (72) 95 09/21/18 23:20 92 18 Nasal Cannula 3.0 32 Intake and Output 09/21/18 09/22/18 19:00 07:00 Intake Total 2035.000 ml 1480 ml Balance 2035.000 ml 1480 ml Intake Oral 605 ml 780 ml IV Total 1430.000 ml 700 ml # Voids 3 Laboratory Tests 09/22/18 09:00: White Blood Count 3.4L, Red Blood Count 3.94L, Hemoglobin 10.6L, Hematocrit 32.6L, Mean Corpuscular Volume 83, Mean Corpuscular Hemoglobin 26.8L, Mean Corpuscular Hemoglobin Concent 32.4, Red Cell Distribution Width 16.8H, Platelet Count 75L, Mean Platelet Volume 9.2, Neutrophils (%) (Auto) , Lymphocytes (%) (Auto) , Monocytes (%) (Auto) , Eosinophils (%) (Auto) , Basophils (%) (Auto) , Differential Total Cells Counted 100, Neutrophils % ( Manual) 60, Lymphocytes % (Manual) 27, Monocytes % (Manual) 11H, Eosinophils % ( Manual) 2, Basophils % (Manual) 0, Band Neutrophils 0, Platelet Estimate DecreasedL, Platelet Morphology Normal, Hypochromasia 1+, Anisocytosis 1+, Sodium Level 140, Potassium Level 3.3L, Chloride Level 104, Carbon Dioxide Level 28, Anion Gap 8, Blood Urea Nitrogen 4L, Creatinine 0.7, Estimat Glomerular Filtration Rate > 60, Glucose Level 212H, Calcium Level 8.0L, Vancomycin Level Trough 6.7 Height (Feet): 5 Height (Inches): 2.00 Weight (Pounds): 105 Objective General Appearance: A+O x3, NAD HEENT: normocephalic, atraumatic Neck: non-tender, normal alignment Respiratory/Chest: chest wall non-tender, lungs clear Cardiovascular/Chest: normal peripheral pulses, normal rate Abdomen: normal bowel sounds, non tender ++ scars on abd Extremities: normal range of motion Efrain Veloz MD Sep 22, 2018 22:32
--- NOTE | 2018-09-23 13:58 | Discharge Summary ---
Discharge Summary Discharge Summary _ DATE OF ADMISSION: 09/15/2018 DATE OF DISCHARGE: 09/22/2018 DISCHARGED BY: Dr. Gama REASON FOR ADMISSION: 23 years old female with history of bipolar disorder , gastritis, Swathi Danielle tear , cystic fibrosis, presented to emergency department by paramedics with severe epigastric pain and bloody vomiting. Patient denied recent drinking. No melena. Patient was recently discharged from [facility] and apparently was scheduled for endoscopy which was not performed. Patient reported not moving her bowels for several days. No fever, no chills. No chest pain , no palpitations , shortness of breath . No dysuria. On evaluation vital signs were stable. Laboratory workup revealed no leukocytosis ,hemoglobin 8.8,hematocrit 28.4 , platelets 108 . WBC 4.4 Urinalysis revealed no evidence of UTI . Urine test was negative. Albumin 3.2 Stable LFT and lipase. Chest x-ray revealed no acute cardiopulmonary pathology . EKG revealed normal sinus rhythm , no acute ischemic changes . Abdominal x-ray showed fecal retention. Patient subsequently was admitted for further management CONSULTANTS: ID specialist GI specialist Dr. Pollock production clerk/oncologist Dr. Veloz psychiatrist ENT specialist Dr. Cardenas pain management [facility] COURSE: Patient was admitted , started on the IV fluids and kept NPO. Patient started on PPI twice a day. Pain management was addressed. Hemoglobin and hematocrit were closely monitored. GI specialist closely followed. Patient subsequently on 09/17/18 undergone upper endoscopy. Fresh blood was seen in the oropharynx and in the stomach suspicious for mouth bleeding causing GI bleeding along with some peeling off of the mucosa at the GE junction suggestive of reflux disease and esophagitis. Gastritis noted, status post biopsy. GI recommended evaluation by ENT specialist. ENT specialist seen and evaluated the patient. Per ENT patient has possible bleeding from upper airway and fiberoptic laryngoscopy should be considered. Hemoglobin hematocrit were closely monitored and remained in baseline. Patient continued spitting some blood . On 09/21 patient undergone second upper endoscopy with biopsy which revealed esophagitis, possibly pill induced. Biopsy of stomach antrum revealed mild chronic gastritis , no evidence of Helicobacter infection. Biopsy of the esophagus revealed scant fragments of squamous mucosa with marked degenerative changes, blood and fibrin within mixed inflammatory infiltrate. GI specialist recommended continue PPI . Diet was advanced as tolerated. Symptomatic treatment with antiemetic provided as needed. Patient was able to tolerate diet. CT of the abdomen and pelvis revealed partial resection of pancreas , probable chronic pancreatitis. Hepatic steatosis. Colonic stool burden suggestive of constipation , no evidence of small bowel obstruction, no free intraperitoneal air. Significant distention of the urinary bladder with urinary outlet/urinary obstruction with urinary retention/outlet obstruction. Active focal surface nodularity of the liver with early cirrhotic changes , liver cirrhosis should be considered , especially given visualized portosystemic varices. Esophageal wall thickening with adjacent small varices. Perigastric and perisplenic varices were also noted. Hemoglobin and hematocrit were closely monitored with goal to keep hemoglobin above 7. Field Operations Manager/oncologist followed. Patient with evidence of pancytopenia in the setting of chronic pancreatitis, fibrosis, liver cirrhosis. Field Operations Manager recommended continue Creon, which she takes as outpatient. transfusion , Neupogen and Procrit should be considered only on as-needed basis. Anemia workup showed evidence of iron deficiency. Field Operations Manager recommended, if hemoglobin fall below 10, to start IV iron. Hepatitis panel was negative . HIV test was nonreactive. Abdominal ultrasound revealed fatty infiltration of liver, status post splenectomy, cholecystectomy. Pain management provided as per pain specialist recommendation. Pain was controlled with current regimen. Patient had outpatient pain specialist that she followed on a regular basis. Seizure precautions were maintained, no evidence of seizure activity while in the hospital. ID specialist followed. Blood culture were negative. Patient with evidence of fever and clinical evidence of acute bacterial tonsillitis. Patient was on IV antibiotic while fritz the hospital and transitioned to oral Augmentin upon discharge for additional 7 days to complete treatment. [employer] Lieutenant recommendation implemented and plan of care. Patient received initial due to risk of due to moderate risk for malnutrition. Psychiatrist followed for bipolar disease with psychotic features. Supportive therapy and reality orientation provided . Psychiatric medication regimen was optimized. Hemoglobin and hematocrit remained stable. No further bleeding. Patient was stable for discharge home with outpatient follow-up pain specialist primary care provider. Recommended to fiberoptic laryngoscopy if bleeding recurs. FINAL DIAGNOSES: Acute bacterial tonsillitis Upper GI bleeding Status post upper endoscopy with biopsy Possibly pill induced esophagitis Gastritis Anemia due to upper GI bleeding Iron deficiency anemia Chronic pancreatitis Liver cirrhosis ( per imaging) Cystic fibrosis Bipolar disorder with psychotic features Narcotic dependency DISCHARGE MEDICATIONS: See Medication Reconciliation list. DISCHARGE INSTRUCTIONS: Patient was discharged home. Follow up with primary care provider in one week. I have been assigned to dictate discharge summary for this account. I was not involved in the patient's management. No further episodes of bleeding. Hemoglobin hematocrit stable. Patient was stable for discharge home and follow-up as an outpatient with primary care provider. Consider ENT specialist for fiberoptic laryngoscopy bleeding precautions. Kenzie Heredia NP Sep 23, 2018 13:58
--- NOTE | 2018-09-24 09:36 | NUR ---
*-* INSURANCE *-* ALL CLINICALS HAVE BEEN RE-FAXED REQUESTED: [employer] [phone] SPOKE TO ERIS CONNORS [id number] MISSING CLINICALS FROM THE PLEASE FAX ALL OVER TO: FAX- [phone]
--- NOTE | 2018-10-01 14:35 | Cardiology Report ---
APPROVED REPORT EKG Measurement Heart [id number] Normal sinus rhythm Normal ECG
== END 2018-09-22 19:30 | disposition home or self-care (01) | DRG 113 ==
LOC: EDBD 16:02 → EMR 16:15 → EDBEDREQ 17:03 → 2W 17:38 → EDBEDREQ 18:16 → 3E 09-18 07:30
PROC: 30233N1 Transfusion of Nonautologous Red Blood Cells into Peripheral Vein, Percutaneous Approach (ICD-10-PCS; 2018-09-17)
PROC: 0DB78ZX Excision of Stomach, Pylorus, Via Natural or Artificial Opening Endoscopic, Diagnostic (ICD-10-PCS; principal; 2018-09-17 12:54)
PROC: 0DB58ZX Excision of Esophagus, Via Natural or Artificial Opening Endoscopic, Diagnostic (ICD-10-PCS; 2018-09-21)
DX: J03.80 Acute tonsillitis due to other specified organisms (principal); D61.818 Other pancytopenia; E84.9 Cystic fibrosis, unspecified; Z94.89 Other transplanted organ and tissue status; K92.2 Gastrointestinal hemorrhage, unspecified; F11.20 Opioid dependence, uncomplicated; K74.60 Unspecified cirrhosis of liver; B96.89 Other specified bacterial agents as the cause of diseases classified elsewhere; F31.9 Bipolar disorder, unspecified; Z88.8 Allergy status to other drugs, medicaments and biological substances; Z90.410 Acquired total absence of pancreas; Z90.49 Acquired absence of other specified parts of digestive tract; Z90.81 Acquired absence of spleen; K29.70 Gastritis, unspecified, without bleeding; R10.13 Epigastric pain; K20.8 Other esophagitis; G89.29 Other chronic pain; D50.0 Iron deficiency anemia secondary to blood loss (chronic)
CPT/HCPCS: 36415; 71045; 74018; 74177; 76700; 80048; 80053; 80202; 81003; 81025; 82247; 82248; 82270; 82728; 82746; 83010; 83615; 83690; 84443; 85007; 85025; 85610; 85660; 85730; 86703; 86705; 86709; 86803; 86850; 86900; 86901; 86920; 87040; 87081; 87340; 93005; 94003; 94150; 94640; 94664; 94760; 96361; 96374; 96375; 96376; 99285; J2250; J2405; J2765; J7620; J8499

== ENCOUNTER 2019-03-03 21:29 | Inpatient (IN) | payer MEDICAID, OTHER ==
[~2019-03-03] VITALS: Ht 157.5 cm; Wt 49.9 kg
[~2019-03-03 21:29] MED LIST: AMBIEN10 MG ORAL; ATIVAN2 MG ORAL; CREON DR 3,0001 EACH PO; LITHIUM CARBON150 MG ORAL; PANTOPRAZOLE SO40 MG ORAL; SEROQUEL XR300 MG ORAL; SEROQUEL XR50 MG ORAL; SERTRALINE HCL100 MG PO; TPN
[2019-03-03 21:30] VITALS: BP 112/80
--- NOTE | 2019-03-03 21:34 | NUR ---
ED Nurse Note: Pt NANDO from bus stop, pt was on her way to see her specialist. C/o 03/10 R upper quad pain x4 days, bright red blood noted in emesis and stool x2 days. Pt is A&Ox4
--- NOTE | 2019-03-03 21:39 | Emergency Room Report ---
History of Present Illness General Chief Complaint: Abdominal Pain Source: Patient Present Illness HPI The patient presents with 4 days of vomiting and epigastric pain. She has history of cystic fibrosis with chronic pancreatitis, liver inflammation and gastritis. She is been vomiting blood and today passed some blood in her stool. She is been able to unable to eat for this. Of time. She denies any fevers or chills but feels weak at this time. The pain is 10/10 epigastric and right upper quadrant. She is been unable to take any medication for this. She denies any dysuria. Her last menstruation was 3 years ago. She is on Depo- Provera. She was admitted for gastritis and had endoscopy done. She is never told about H. pylori at that time. She is received blood transfusions in the past. She was admitted her in September with these d/c diagnoses: Acute bacterial tonsillitis Upper GI bleeding Status post upper endoscopy with biopsy Possibly pill induced esophagitis Gastritis Anemia due to upper GI bleeding Iron deficiency anemia Chronic pancreatitis Liver cirrhosis ( per imaging) Cystic fibrosis Bipolar disorder with psychotic features Narcotic dependency Allergies: Coded Allergies: CHLORHEXIDINE (Verified Allergy, Unknown, Rash, 09/16/18) Patient History Past Medical History: see triage record Past Surgical History: other - port L Social History: Denies: smoking, alcohol use, drug use Social History Narrative disabled Last Menstrual Period: 2016 Now: No Reviewed Nursing Documentation: PMH: Agreed; PSxH: Agreed Nursing Documentation-PMH Past Medical History: No History, Except For Hx Cardiac Problems: No Hx Cancer: No - CYSTIC FIBROSIS Hx Gastrointestinal Problems: Yes - CHRONIC PANCREATITIS, LIVER DISEASE, LIVER FAILURE Hx Neurological Problems: No Hx Seizures: Yes - pt had one seizure last year, December 2017 Review of Systems All Other Systems: negative except mentioned in HPI Physical Exam Vital Signs Date Time Temp Pulse Resp B/P (MAP) Pulse Ox O2 Delivery O2 Flow Rate FiO2 03/03/19 21:24 98.2 114 18 112/80 (91) 96 Room Air Sp02 EP Interpretation: reviewed, normal General Appearance: alert - Really, GCS 15, mild distress Head: normocephalic Eyes: bilateral eye PERRL, bilateral eye conjunctivae pale ENT: moist mucus membranes Neck: supple Respiratory: lungs clear, normal breath sounds Cardiovascular #1: regular rate, rhythm Cardiovascular #2: 2+ radial (R) Gastrointestinal: no guarding, no rebound, tenderness - epigastric Musculoskeletal: back normal, gait/station normal, normal range of motion Neurologic: alert, oriented x3, grossly normal Psychiatric: depressed affect Skin: pallor Medical Decision Making Diagnostic Impression: Primary Impression: UGI bleed Additional Impressions: Abdominal pain Qualified Codes: R10.13 - Epigastric pain Cystic fibrosis ER Course Patient presents with vomiting blood and passing blood in her stool with epigastric pain. Differential includes gastritis, peptic ulcer disease, esophageal varices, pancreatitis amongst others. Evaluation will be with chest x-ray, abdominal film and labs. The patient will be treated with IV hydration, Pepcid, Benadryl, Zofran and Dilaudid. She is pale and in pain and most likely will need to be admitted. Patient is placed on a air sampling and monitoring. Chest x-ray no infiltrates. Abdominal film with nonspecific bowel gas pattern. Labs with normal white count and slight anemia. CMP with elevated alk phos. Slightly low potassium. Coags normal. Patient vomiting blood here. She is still nauseated and requires increased pain medication. Treated with Compazine per her request. Repeat Dilaudid. She has a history of varices she will be getting Sandostatin also. Some improvement. Admit med Dr. Dudley. Laboratory Tests Test 03/03/19 21:45 03/04/19 06:30 White Blood Count 6.1 K/UL (4.8-10.8) 4.9 K/UL (4.8-10.8) Red Blood Count 4.33 M/UL (4.20-5.40) 3.71 M/UL (4.20-5.40) L Hemoglobin 12.7 G/DL (12.0-16.0) 11.1 G/DL (12.0-16.0) L Hematocrit 38.3 % (37.0-47.0) 33.7 % (37.0-47.0) L Mean Corpuscular Volume 88 FL (80-99) 91 FL (80-99) Mean Corpuscular Hemoglobin 29.4 PG (27.0-31.0) 30.0 PG (27.0-31.0) Mean Corpuscular Hemoglobin Concent 33.3 G/DL (32.0-36.0) 33.0 G/DL (32.0-36.0) Red Cell Distribution Width 10.6 % (11.6-14.8) L 11.1 % (11.6-14.8) L Platelet Count 172 K/UL (150-450) 144 K/UL (150-450) L Mean Platelet Volume 6.5 FL (6.5-10.1) 6.4 FL (6.5-10.1) L Neutrophils (%) (Auto) 60.9 % (45.0-75.0) 49.3 % (45.0-75.0) Lymphocytes (%) (Auto) 27.0 % (20.0-45.0) 35.1 % (20.0-45.0) Monocytes (%) (Auto) 8.8 % (1.0-10.0) 10.8 % (1.0-10.0) H Eosinophils (%) (Auto) 2.5 % (0.0-3.0) 4.2 % (0.0-3.0) H Basophils (%) (Auto) 0.7 % (0.0-2.0) 0.7 % (0.0-2.0) Prothrombin Time 10.6 SEC (9.30-11.50) Prothrombin Time INR 1.0 (0.9-1.1) PTT 26 SEC (23-33) Urine Color Pale yellow Urine Appearance Clear Urine pH 6 (4.5-8.0) Urine Specific [place] 1.010 (1.005-1.035) Urine Protein Negative (NEGATIVE) Urine Glucose (UA) Negative (NEGATIVE) Urine Ketones Negative (NEGATIVE) Urine Blood 3+ (NEGATIVE) H Urine Nitrite Negative (NEGATIVE) Urine Bilirubin Negative (NEGATIVE) Urine Urobilinogen Normal MG/DL (0.0-1.0) Urine Leukocyte Esterase 1+ (NEGATIVE) H Urine RBC 0-2 /HPF (0 - 2) Urine WBC 0-2 /HPF (0 - 2) Urine Squamous Epithelial Cells Occasional /LPF Urine Bacteria Occasional /HPF (NONE) Urine HCG, Qualitative Negative (NEGATIVE) Sodium Level 138 MMOL/L (136-145) 145 MMOL/L (136-145) Potassium Level 3.1 MMOL/L (3.5-5.1) L 4.0 MMOL/L (3.5-5.1) Chloride Level 101 MMOL/L (98-107) 112 MMOL/L (98-107) H Carbon Dioxide Level 24 MMOL/L (21-32) 22 MMOL/L (21-32) Anion Gap 13 mmol/L (5-15) 11 mmol/L (5-15) Blood Urea Nitrogen 8 mg/dL (7-18) 6 mg/dL (7-18) L Creatinine 0.9 MG/DL (0.55-1.30) 0.9 MG/DL (0.55-1.30) Estimate Glomerular Filtration Rate > 60 mL/min (>60) > 60 mL/min (>60) Glucose Level 104 MG/DL (74-106) 108 MG/DL (74-106) H Calcium Level 8.8 MG/DL (8.5-10.1) 7.7 MG/DL (8.5-10.1) L Total Bilirubin 0.3 MG/DL (0.2-1.0) Aspartate Amino Transferase (AST) 21 U/L (15-37) Alanine Aminotransferase (ALT) 28 U/L (12-78) Alkaline Phosphatase 124 U/L (46-116) H Total Protein 7.6 G/DL (6.4-8.2) Albumin 3.9 G/DL (3.4-5.0) Globulin 3.7 g/dL Albumin/Globulin Ratio 1.1 (1.0-2.7) Lipase 28 U/L (73-393) L Rhythm Strip Diag. Results EP Interpretation: yes Rhythm: NSR, no PVC's, no ectopy Chest X-Ray Diagnostic Results Chest X-Ray Diagnostic Results : Chest X-Ray Ordered: Yes # of Views/Limited/Complete: 1 View Indication: Other EP Interpretation: Yes Interpretation: no consolidation, no effusion, no pneumothorax, other - portacath Impression: Other Electronically Signed by: Electronically signed by Pollo Santos MD Other X-Ray Diagnostic Results Other X-Ray Diagnostic Results : X-Ray ordered: abd # of Views/Limited Vs Complete: 1 View Indication: Pain Interpretation: nonspecific bowel gas, no sbo, other - NSBGP Impression: Other Electronically Signed by: Electronically signed by Pollo Santos MD Last Vital Signs Date Time Temp Pulse Resp B/P (MAP) Pulse Ox O2 Delivery O2 Flow Rate FiO2 03/04/19 04:00 97.9 94 20 115/78 (90) 98 03/04/19 01:00 Room Air Status: improved Disposition: ADMITTED INPATIENT Condition: Serious Pollo Santos MD Mar 03, 2019 21:39
[2019-03-03] MEDS ORDERED: DiphenhydrAMINE 50mg/ml Inj IVP ONE ×2 (21:45→23:15)
[2019-03-03] MEDS ORDERED: HYDROmorphone 1mg/ml Carpuject IVP ONE (21:45)
[2019-03-03 22:04] LABS: APPEARANCE,URINE CLEAR; BILIRUBIN, URINE NEGATIVE (NEGATIVE); COLOR,URINE PALE YELLOW; GLUCOSE, URINE (UA) NEGATIVE (NEGATIVE); KETONES,URINE NEGATIVE (NEGATIVE); LEUKOCYTE ESTERASE ,URINE 1+ (NEGATIVE); NITRITE,URINE NEGATIVE (NEGATIVE); PH,URINE 6 (4.5-8.0); PROTEIN,URINE NEGATIVE (NEGATIVE); UROBILINOGEN,URINE NORMAL MG/DL (0.0-1.0)
[2019-03-03 22:07] LABS: BASOPHILS % (AUTO) 0.7 % (0.0-2.0); EOSINOPHILS % (AUTO) 2.5 % (0.0-3.0); HEMATOCRIT 38.3 % (37.0-47.0); HEMOGLOBIN 12.7 G/DL (12.0-16.0); MEAN CORPUSCULAR VOLUME 88 FL (80-99); MONOCYTES % (AUTO) 8.8 % (1.0-10.0); NEUTROPHILS % (AUTO) 60.9 % (45.0-75.0); PLATELET COUNT 172 K/UL (150-450); RED BLOOD COUNT 4.33 M/UL (4.20-5.40); RED CELL DISTRIBUTION WIDTH 10.6 % (11.6-14.8); WHITE BLOOD COUNT 6.1 K/UL (4.8-10.8)
[2019-03-03 22:15] LABS: ANION GAP 13 mmol/L (5-15); BLOOD UREA NITROGEN 8 mg/dL (7-18); CALCIUM 8.8 MG/DL (8.5-10.1); CARBON DIOXIDE 24 MMOL/L (21-32); CHLORIDE 101 MMOL/L (98-107); CREATININE 0.9 MG/DL (0.55-1.30); POTASSIUM 3.1 MMOL/L (3.5-5.1); SODIUM 138 MMOL/L (136-145)
[2019-03-03 22:19] LABS: ALANINE AMINOTRANSFERASE 28 U/L (12-78); ALBUMIN 3.9 G/DL (3.4-5.0); ALBUMIN/GLOBULIN RATIO 1.1 (1.0-2.7); ALKALINE PHOSPHATASE 124 U/L (46-116); ASPARTATE AMINO TRANSFERASE 21 U/L (15-37); BILIRUBIN,TOTAL 0.3 MG/DL (0.2-1.0)
[2019-03-03] MEDS ORDERED: SandoSTATIN 50mcg Inj IVP ONE (22:45)
[2019-03-03] MEDS ORDERED: Octreotide Acetate 500 MCG in Sodium Chloride 499 ML IV SCH (22:45)
[2019-03-03] MEDS ORDERED: SandoSTATIN 500mcg Inj ONE (23:19)
--- NOTE | 2019-03-03 23:34 | Diagnostic Imaging Report ---
EXAM: XR Abdomen, 2 Views CLINICAL HISTORY: Abdominal pain. TECHNIQUE: Frontal views of the abdomen/pelvis. COMPARISON: Radiograph dated 09/16/2018. FINDINGS: Intraperitoneal space: No obvious free air. Gastrointestinal tract: Moderate stool in colon. Correlate for constipation. Stool burden appears decreased compared to prior radiograph. No dilated small bowel loops to suggest small bowel obstruction. Organs: Surgical clips in gallbladder fossa. Bones/joints: Unremarkable. Other: Nipple piercings. IMPRESSION: Moderate stool in the colon. Correlate for constipation. Stool burden appears decreased compared to prior radiograph.
--- NOTE | 2019-03-03 23:35 | Diagnostic Imaging Report ---
EXAM: XR Chest, 1 View CLINICAL HISTORY: Abdominal pain. TECHNIQUE: Frontal view of the chest. COMPARISON: CXR dated 09/16/2018. FINDINGS: Lungs: Unremarkable. No focal consolidation. No evidence of pulmonary edema. Pleural space: Unremarkable. No pneumothorax. Heart: Unremarkable. No cardiomegaly. Mediastinum: Unremarkable. Bones/joints: Unremarkable. Other: Right chest wall Port-A-Cath with tip in superior vena cava. Nipple piercings. IMPRESSION: No evidence of acute cardiopulmonary process.
--- NOTE | 2019-03-03 23:50 | NUR ---
TRANSFER TO FLOOR: Patient transferred to as ordered, per Dr Dudley. Report given to BEN Short. Belongings and medications given to . Family and or S/O informed of transfer.
[2019-03-04] VITALS: BP 129/92
--- NOTE | 2019-03-04 | NUR ---
NURSE NOTES: Pt came up to unit via ck w/ariane at her side. Pt A&Ox4, VSS, and in no apparent distress at this time. Right chest portacath patent/intact w/sandostatin infusing; and skin intact. Will review home meds and contact MD for admission orders.
--- NOTE | 2019-03-04 00:15 | NUR ---
NURSE NOTES: Pt vomited rufina blood (less than 30 ml). Will notify .
[2019-03-04] MEDS ORDERED: TRAZODONE HCL300 MG ORAL (00:27)
--- NOTE | 2019-03-04 00:30 | NUR ---
NURSE NOTES: Left vm for Dr. Dudley requesting admission orders. Will await call back.
[2019-03-04] MEDS ORDERED: CYCLOBENZAPRINE5 MG ORAL (00:31)
--- NOTE | 2019-03-04 01:15 | NUR ---
NURSE NOTES: Left second vm for Dr. Dudley requesting admission orders. Will await call back.
[2019-03-04 04:00] VITALS: BP 115/78
[2019-03-04] MEDS ORDERED: Zolpidem 5mg tab ORAL PRN (05:28)
[2019-03-04] MEDS: DiphenhydrAMINE 50mg/ml Inj IVP PRN ×3 (05:34→18:26)
[2019-03-04] MEDS ORDERED: Sertraline 100mg tab ORAL SCH (06:30)
[2019-03-04 06:41] LABS: BASOPHILS % (AUTO) 0.7 % (0.0-2.0); EOSINOPHILS % (AUTO) 4.2 % (0.0-3.0); HEMATOCRIT 33.7 % (37.0-47.0); HEMOGLOBIN 11.1 G/DL (12.0-16.0); LYMPHOCYTES % (AUTO) 35.1 % (20.0-45.0); MEAN CORPUSCULAR VOLUME 91 FL (80-99); MONOCYTES % (AUTO) 10.8 % (1.0-10.0); NEUTROPHILS % (AUTO) 49.3 % (45.0-75.0); PLATELET COUNT 144 K/UL (150-450); RED BLOOD COUNT 3.71 M/UL (4.20-5.40); RED CELL DISTRIBUTION WIDTH 11.1 % (11.6-14.8); WHITE BLOOD COUNT 4.9 K/UL (4.8-10.8)
[2019-03-04 07:11] LABS: ANION GAP 11 mmol/L (5-15); BLOOD UREA NITROGEN 6 mg/dL (7-18); CALCIUM 7.7 MG/DL (8.5-10.1); CARBON DIOXIDE 22 MMOL/L (21-32); CHLORIDE 112 MMOL/L (98-107); CREATININE 0.9 MG/DL (0.55-1.30); SODIUM 145 MMOL/L (136-145)
--- NOTE | 2019-03-04 07:30 | NUR ---
NURSE NOTES: Patient is in bed asleep. Stable. No facial grimacing or signs of discomfort noted. Patient is in bed in locked and lowest position with call light within reach. All safety measures provided. Will continue to monitor.
[2019-03-04 08:00] VITALS: BP 92/60
[2019-03-04] MEDS: Pantoprazole Inj IVP SCH ×2 (09:29→22:03)
[2019-03-04] MEDS: Sertraline 100mg tab ORAL SCH (09:29)
--- NOTE | 2019-03-04 10:00 | NUR ---
NURSE NOTES: Dr. Dudley gave ok to d/c Creon and to change seroquel xr to seroquel 200mg BID. Pharmacist Meghan aware. Patient made aware.
[2019-03-04 12:00] VITALS: BP 118/73
--- NOTE | 2019-03-04 14:23 | NUR ---
CASE MANAGEMENT: INITIAL REVIEW 23 YO F NANDO FROM HOME CC: ABD PAIN. BLOOD IN VOMIT. PMHx: CYSTIC FIBROSIS. CHRONIC PANCREATITIS. LIVER INFLAMMATION. GASTRITIS. LIVER FAILURE. SI:UPPER GI BLEED. T 98.2 HR 114 RR 18 B/P 112/80 SATS 96% ON RA K 3.1 ALP 124 LIPASE 28 IS: PEPCID IV X1 DILAUDID IV X1 NS BOLUS X1 BENADRYL IV X1 COMPAZINE IV X1 ABD XRAY IMPRESSION: Moderate stool in the colon. Correlate for constipation. Stool burden appears decreased compared to prior radiograph. PATIENT ADMITTED TO MED/SURG 03/03/2019 @ 2220 DCP: PATIENT TO BE DISCHARGED TO HOME ONCE MEDICALLY CLEARED. PLAN OF CARE: GI CONSULT 03/04/2019 SI:UPPER GI BLEED. T 97.8 HR 104 RR 20 B/P 118/73 SATS 95% ON RA CL 112 BUN 6 GLU 108 CA 7.7 IS: IVF @ 100 mL/HR PROTONIX IV Q12H ZOLOFT PO QD SEROQUEL PO Q12H MED/SURG STATUS DCP: PATIENT TO BE DISCHARGED TO HOME ONCE MEDICALLY CLEARED. Addendum: 03/04/19 at 1441 by Gemini Nuñez CM INTERQUAL MET
--- NOTE | 2019-03-04 15:33 | History & Physical ---
History and Physical History & Physicial HPI 23 year old female with 4 days of vomiting and epigastric pain. She has history of cystic fibrosis with chronic pancreatitis, and islet cell transplant. She is been vomiting blood and had syncopal episodes and some blood in her stool. She has significant pain. She denies any fevers or chills but feels weak at this time. The pain is 10/10 epigastrium. She is been unable to take any medication for this. She denies any dysuria. She is usually cared for at [facility] Acute bacterial tonsillitis Upper GI bleeding Status post upper endoscopy with biopsy Possibly pill induced esophagitis Gastritis Anemia due to upper GI bleeding Iron deficiency anemia Chronic pancreatitis Liver cirrhosis ( per imaging) Cystic fibrosis Bipolar disorder with psychotic features Narcotic dependency port a cath seizure history Allergies: Coded Allergies: CHLORHEXIDINE (Verified Allergy, Unknown, Rash, 09/16/18) Social History: Denies: smoking, alcohol use, drug use disabled Reviewed of systems: as above Physical WDWN NAD clear breath sounds bilaterally without rhonchi or wheeze [id number] without MRG tender abdomen no CCE nonfocal Laboratory Tests Test 03/03/19 21:45 03/04/19 06:30 White Blood Count 6.1 K/UL (4.8-10.8) 4.9 K/UL (4.8-10.8) Red Blood Count 4.33 M/UL (4.20-5.40) 3.71 M/UL (4.20-5.40) L Hemoglobin 12.7 G/DL (12.0-16.0) 11.1 G/DL (12.0-16.0) L Hematocrit 38.3 % (37.0-47.0) 33.7 % (37.0-47.0) L Mean Corpuscular Volume 88 FL (80-99) 91 FL (80-99) Mean Corpuscular Hemoglobin 29.4 PG (27.0-31.0) 30.0 PG (27.0-31.0) Mean Corpuscular Hemoglobin Concent 33.3 G/DL (32.0-36.0) 33.0 G/DL (32.0-36.0) Red Cell Distribution Width 10.6 % (11.6-14.8) L 11.1 % (11.6-14.8) L Platelet Count 172 K/UL (150-450) 144 K/UL (150-450) L Mean Platelet Volume 6.5 FL (6.5-10.1) 6.4 FL (6.5-10.1) L Neutrophils (%) (Auto) 60.9 % (45.0-75.0) 49.3 % (45.0-75.0) Lymphocytes (%) (Auto) 27.0 % (20.0-45.0) 35.1 % (20.0-45.0) Monocytes (%) (Auto) 8.8 % (1.0-10.0) 10.8 % (1.0-10.0) H Eosinophils (%) (Auto) 2.5 % (0.0-3.0) 4.2 % (0.0-3.0) H Basophils (%) (Auto) 0.7 % (0.0-2.0) 0.7 % (0.0-2.0) Prothrombin Time 10.6 SEC (9.30-11.50) Prothromb Time International Ratio 1.0 (0.9-1.1) Activated Partial Thromboplast Time 26 SEC (23-33) Urine Color Pale yellow Urine Appearance Clear Urine pH 6 (4.5-8.0) Urine Specific [place] 1.010 (1.005-1.035) Urine Protein Negative (NEGATIVE) Urine Glucose (UA) Negative (NEGATIVE) Urine Ketones Negative (NEGATIVE) Urine Blood 3+ (NEGATIVE) H Urine Nitrite Negative (NEGATIVE) Urine Bilirubin Negative (NEGATIVE) Urine Urobilinogen Normal MG/DL (0.0-1.0) Urine Leukocyte Esterase 1+ (NEGATIVE) H Urine RBC 0-2 /HPF (0 - 2) Urine WBC 0-2 /HPF (0 - 2) Urine Squamous Epithelial Cells Occasional /LPF Urine Bacteria Occasional /HPF (NONE) Urine HCG, Qualitative Negative (NEGATIVE) Sodium Level 138 MMOL/L (136-145) 145 MMOL/L (136-145) Potassium Level 3.1 MMOL/L (3.5-5.1) L 4.0 MMOL/L (3.5-5.1) Chloride Level 101 MMOL/L (98-107) 112 MMOL/L (98-107) H Carbon Dioxide Level 24 MMOL/L (21-32) 22 MMOL/L (21-32) Anion Gap 13 mmol/L (5-15) 11 mmol/L (5-15) Blood Urea Nitrogen 8 mg/dL (7-18) 6 mg/dL (7-18) L Creatinine 0.9 MG/DL (0.55-1.30) 0.9 MG/DL (0.55-1.30) Estimat Glomerular Filtration Rate > 60 mL/min (>60) > 60 mL/min (>60) Glucose Level 104 MG/DL (74-106) 108 MG/DL (74-106) H Calcium Level 8.8 MG/DL (8.5-10.1) 7.7 MG/DL (8.5-10.1) L Total Bilirubin 0.3 MG/DL (0.2-1.0) Aspartate Amino Transf (AST/SGOT) 21 U/L (15-37) Alanine Aminotransferase (ALT/SGPT) 28 U/L (12-78) Alkaline Phosphatase 124 U/L (46-116) H Total Protein 7.6 G/DL (6.4-8.2) Albumin 3.9 G/DL (3.4-5.0) Globulin 3.7 g/dL Albumin/Globulin Ratio 1.1 (1.0-2.7) Lipase 28 U/L (73-393) L IMPRESSION abdominal pain GIB hematemesis pancreatitis CF PLAN NPO pain management gi follow up resume home meds may need transfer to [facility]. impression, plan, and exam edited and reviewed in detail care discussed with Shine Toribio MD Mar 04, 2019 15:33
--- NOTE | 2019-03-04 15:45 | NUR ---
NURSE NOTES: Patient vomited x1. Blood noted. Stable. Patient requested zofran for nausea. Will administer as ordered. Patient is aware of endoscopy planned for tomorrow. Will continue to monitor.
[2019-03-04 16:00] VITALS: BP 100/63
--- NOTE | 2019-03-04 16:15 | Consultation ---
DATE OF CONSULTATION: 03/04/2019 GASTROENTEROLOGY CONSULTATION CONSULTING PHYSICIAN: Landy Arizmendi M.D. REFERRING PHYSICIAN: Shine Dudley M.D. CHIEF COMPLAINT: I was asked to see this patient by Dr. Shine Dudley for evaluation of gastrointestinal bleeding. HISTORY OF PRESENT ILLNESS: The patient is a 23-year-old white woman, who comes in to the hospital due to hematemesis. The patient has chronic abdominal pain and is on chronic narcotics at home. She usually goes to [facility] for her gastrointestinal issues. She states she was on her way to go to [facility] for her nausea and vomiting, but she had a bout of hematemesis and felt lightheaded and therefore, ambulance was called and brought her to [facility]. She recalls having had an endoscopy about a year and half ago for gastrointestinal bleeding and she is not aware of the results. She states she has chronic liver disease and she has positive mutations that cause her this disorder. She also has cystic fibrosis and has had chronic pancreatitis. She eventually had a total pancreatectomy with islet cell transplantation in 2017. During that operation, she had a cholecystectomy as well as splenectomy and she states a part of her small bowel was also removed. She does not drink alcohol and does not take any nonsteroidal anti-inflammatory drugs. She is on Creon at a dose of 72,000 units 3 times a day with meals. She is also on pantoprazole 40 mg daily. PAST MEDICAL HISTORY: History of cystic fibrosis, chronic liver disease, psychiatric disorder, and history of gastrointestinal bleeding. FAMILY HISTORY: Noncontributory. SOCIAL HISTORY: The patient is single. She has no children. She does not drink alcohol. MEDICATIONS: At home include Dilaudid, Seroquel, Ativan, Ambien, Haldol, pantoprazole, and Creon. REVIEW OF SYSTEMS: Otherwise negative. PHYSICAL EXAMINATION: GENERAL: A well-developed, well-nourished woman, in no distress, resting comfortably upon my arrival. HEENT: Normocephalic and atraumatic. Sclerae anicteric. NECK: Supple. CHEST: Clear to auscultation. CARDIOVASCULAR: Revealed regular rate. ABDOMEN: Soft with some epigastric and bilateral upper quadrant tenderness, which appeared to be less when the patient was distracted. EXTREMITIES: Revealed no edema. LABORATORY DATA: Noted. ASSESSMENT: This patient presents with self-reported history of hematemesis and blood in the stool. She will need to undergo an endoscopy to evaluate the upper GI tract although she is already on Protonix at home. The clinical differential diagnoses will include ulcers, but also it could be from a Swathi-Danielle tear since she had some nausea and vomiting leading up to the hematemesis. The indications, risks, alternatives, and possible complications of the procedure were explained to the patient and informed consent was obtained. RECOMMENDATIONS: 1. Proton pump inhibitor. 2. Serial CBC. 3. Diet as tolerated. 4. Endoscopy tomorrow. Thank you for asking me to participate in the care of this patient. Landy Arizmendi M.D. DR: BRANDIE JOB#: [id number] CC:
--- NOTE | 2019-03-04 19:25 | NUR ---
NURSE NOTES: Report taken from BEN López. Patient is awake and in bed, A&Ox4. No signs of distress on room air. Having pain in the RUQ 7/10 to light palpation and at rest. Skin in intact. Port-a-cath site c/d/i and patent, running NS at 100mls/hr. Patient signed consent for procedure on 03/05/19. Bed in lowest position, call light within reach.
--- NOTE | 2019-03-04 19:45 | NUR ---
HAND-OFF: Report given to Jg CONTRERAS. Patient is stable.
[2019-03-04 20:00] VITALS: BP 92/56
[2019-03-04] MEDS ORDERED: Tubing IV Secondary IV ONE (21:03)
[2019-03-04] MEDS: QUEtiapine 200mg tab ORAL SCH (22:02)
--- NOTE | 2019-03-04 22:45 | Consultation ---
DATE OF CONSULTATION: 03/04/2019 CONSULTING PHYSICIAN: Sly Muller M.D. HISTORY OF PRESENT ILLNESS: This is a 23-year-old female with a history of bipolar disorder with psychotic features who has been admitted to the hospital due to hematemesis. The patient has a history of chronic abdominal pain and is dependent to pain medications. The patient also has a history of chronic liver disease, cystic fibrosis, and chronic pancreatitis. The patient currently is on psychotropic medications for her bipolar disorder, which include Zoloft and Seroquel. The patient denied any depressive manic or psychotic symptoms; however, she appeared depressed. She had a blunted affect and was low energy and hypophonic, and her room was very dark and she was very withdrawn. She denied any suicidal or homicidal ideation. She did not endorse any psychotic or manic symptoms. PAST PSYCHIATRIC HISTORY: She has a long history of bipolar disorder with psychotic features. She has been taking Seroquel, Zoloft, Ambien, and Ativan. PAST MEDICAL HISTORY: Significant for cystic fibrosis, chronic liver disease, and GI bleeding. ALLERGIES: Chlorhexidine. SUBSTANCE ABUSE HISTORY: No known history of illicit drug use or alcohol. MENTAL STATUS EXAMINATION: The patient is alert and oriented x4. Cooperative and engaged. Mood is depressed. Affect is blunted. Congruent with mood. Thought process is linear and goal oriented. Thought content, no suicidal or homicidal ideation. ASSESSMENT: Jameson I Bipolar disorder with psychotic features. Jameson II Deferred. Jameson III Jameson IV Low. Jameson V 60. PLAN: 1. The patient will be continued on Zoloft. 2. The patient will be continued on Seroquel. 3. Continue the Ambien. 4. Continue the Ativan. 5. The patient is not an imminent danger to self or others. 6. The patient is reluctant to change any medication dosage. Sly Muller M.D. DR: PAO JOB#: [id number] CC:
[2019-03-05] VITALS (11 sets, daily range): BP systolic 85–112; BP diastolic 45–71
[2019-03-05] MEDS: DiphenhydrAMINE 50mg/ml Inj IVP PRN ×3 (02:45→19:26)
--- NOTE | 2019-03-05 07:05 | NUR ---
NURSE NOTES: Patient taken to imaging for procedure. Consent signed.
[2019-03-05] MEDS ORDERED: NS 500ML IVPB ONE (07:25)
[2019-03-05] MEDS ORDERED: Propofol 200mg/20ml IV ONE (07:30)
[2019-03-05] MEDS ORDERED: LR 1000ml ONE (07:30)
[2019-03-05] MEDS ORDERED: Lidocaine 1% MPF 10mg/ml 5ml ONE (07:30)
[2019-03-05] MEDS ORDERED: Alfentanil 2ml Inj ONE (07:33)
--- NOTE | 2019-03-05 07:46 | Pre-Procedure Note/Attestation ---
Pre-Procedure Note/Attestation Complete Prior to Procedure Planned Procedure: not applicable Procedure Narrative: egd Indications for Procedure Pre-Operative Diagnosis: gib Attestation I attest that I discussed the nature of the procedure; its benefits; risks and complications; and alternatives (and the risks and benefits of such alternatives ), prior to the procedure, with the patient (or the patient's legal health and safety representative). I attest that, if there was a reasonable possibility of needing a blood transfusion, the patient (or the patient's legal health and safety representative) was given the [facility] standardized written summary, pursuant to the Robert Teodoro Blood Safety Act ([place] Health and Safety Code # 1645, as amended). I attest that I re-evaluated the patient just prior to the surgery and that there has been no change in the patient's H&P, except as documented below: Landy Arizmendi MD Mar 05, 2019 07:45
[2019-03-05] MEDS ORDERED: LR 1000ml 1,000 ML IVLG SCH (07:51)
[2019-03-05] MEDS ORDERED: Ketorolac 30mg Inj IV PRN ×2 (08:00)
[2019-03-05] MEDS ORDERED: Atropine Sulfate 0.4mg/ml inj IVP PRN (08:00)
[2019-03-05] MEDS ORDERED: fentaNYL 100 mcg/2 mL IV PRN (08:00)
[2019-03-05] MEDS ORDERED: DiphenhydrAMINE 50mg/ml Inj IVP PRN (08:00)
[2019-03-05] MEDS ORDERED: oxyCODONE HCL/Acetaminophen 5/325mg ORAL PRN (08:00)
[2019-03-05] MEDS ORDERED: Labetalol 5mg/ml 20ml vial IV PRN (08:00)
[2019-03-05] MEDS ORDERED: HYDROcodone/Acetamin 5/325 tab ORAL PRN (08:00)
[2019-03-05] MEDS ORDERED: LORazepam Inj 2mg/ml 1ml IV PRN (08:00)
[2019-03-05] MEDS ORDERED: HYDROcodone/Acetamin 7.5/325 tab ORAL PRN (08:00)
[2019-03-05] MEDS ORDERED: Hydromorphone 0.5mg/0.5ml inj IVP PRN (08:00)
[2019-03-05] MEDS ORDERED: Midazolam 2mg/2ml Inj IVP PRN (08:00)
--- NOTE | 2019-03-05 08:00 | NUR ---
NURSE NOTES: Received report from Jg CONTRERAS. Patient is currently off the unit.
--- NOTE | 2019-03-05 08:02 | Anethesia Preoperative Eval ---
Anesthesia Pre-op PMH/ROS General Date of Evaluation: Mar 05, 2019 Time of Evaluation: 07:22 Anesthesiologist: Rosa ASA Score: ASA 3 Mallampati Score Class I : Soft palate, uvula, fauces, pillars visible Class II: Soft palate, uvula, fauces visible Class III: Soft palate, base of uvula visible Class IV: Only hard plate visible Mallampati Classification: Class II Surgeon: Ugo Diagnosis: GI Bleed Surgical Procedure: EGD Anesthesia History: none Social History: drug use - Chronic Opioid Dependance Family History: no anesthesia problems Allergies: Coded Allergies: CHLORHEXIDINE (Verified Allergy, Unknown, Rash, 09/16/18) Medications: see eMAR Patient NPO?: Yes Past Medical History Pulmonary: Reports: COPD Gastrointestinal/Genitourinary: Reports: other - Pancreatitis, Cirrhosis Neurologic/Psychiatric: Reports: other - Seizures Hematology/Immune: Reports: other - Cystic Fibrosis PSxH Narrative: Multiple Sxs Anesthesia Pre-op Phys. Exam Physician Exam Last Vital Signs Date Time Temp Pulse Resp B/P (MAP) Pulse Ox O2 Delivery O2 Flow Rate FiO2 03/05/19 04:00 98.5 94 18 88/61 (70) 95 03/04/19 21:00 Room Air Constitutional: NAD Neurologic: CN 2-12 intact Cardiovascular: RRR Respiratory: CTA Gastrointestinal: S/NT/ND Airway Exam Mallampati Score: Class II MO: limited ROM: limited Teeth: missing, intact Anesthesia Pre-op A/P Risk Assessment & Plan Assessment: ASA 3 Plan: GA Status Change Before Surgery: No Pelon Lee MD Mar 05, 2019 08:02
--- NOTE | 2019-03-05 08:03 | Immediate Post-Op Evaluation ---
Immediate Post-Op Evalulation Immediate Post-Op Evalulation Procedure: EGD Date of Evaluation: Mar 05, 2019 Time of Evaluation: 08:39 IV Fluids: 500 LR Blood Products: 0 Estimated Blood Loss: 3 Urinary Output: 0 Blood Pressure Systolic: 99 Blood Pressure Diastolic: 61 Pulse Rate: 79 Respiratory Rate: 8 O2 Sat by Pulse Oximetry: 99 Temperature (Fahrenheit): 97.5 Pain Score (1-10): 3 Nausea: No Vomiting: No Complications 0 Patient Status: awake, reacts, patent, extubated, none Hydration Status: adequate Pelon Lee MD Mar 05, 2019 08:02
--- NOTE | 2019-03-05 08:03 | 48 Hour Post Anesthesia Eval ---
Post Anesthesia Evaluation Procedure: EGD Date of Evaluation: Mar 05, 2019 Time of Evaluation: 11:46 Blood Pressure Systolic: 102 0: 62 Pulse Rate: 89 Respiratory Rate: 12 Temperature (Fahrenheit): 98.2 O2 Sat by Pulse Oximetry: 99 Airway: patent Nausea: No Vomiting: No Pain Intensity: 3 Hydration Status: adequate Cardiopulmonary Status: Stable Mental Status/LOC: patient returned to baseline Follow-up Care/Observations: 0 Post-Anesthesia Complications: 0 Follow-up care needed: N/A Pelon Lee MD Mar 05, 2019 08:03
--- NOTE | 2019-03-05 08:06 | NUR ---
HAND-OFF: Report given to BEN Ray. Patient is off unit.
--- NOTE | 2019-03-05 08:36 | General Progress Note ---
Assessment/Plan Assessment/Plan: Assessment - Cystic fibrosis - h/o chronic pancreatitis - s/p pancreatectomy - chronic pain, narcotic dependent - UGIB - anemia - Psych d/o Recommendations - NPO - IVF - Follow labs and exam - EGD today Subjective Allergies: Coded Allergies: CHLORHEXIDINE (Verified Allergy, Unknown, Rash, 09/16/18) Subjective above noted c/o persistent hematemesis and hematochezia abd pain without change seen in GI lab Objective Last 24 Hour Vital Signs Date Time Temp Pulse Resp B/P (MAP) Pulse Ox O2 Delivery O2 Flow Rate FiO2 03/05/19 08:30 89 12 99 03/05/19 08:29 79 8 99 03/05/19 07:26 98.5 03/05/19 04:00 98.5 94 18 88/61 (70) 95 03/05/19 00:00 98.2 101 18 99/61 (74) 96 03/04/19 21:00 Room Air 03/04/19 20:00 98.3 100 17 92/56 (68) 95 03/04/19 16:00 98.6 99 18 100/63 (75) 95 03/04/19 12:00 97.8 104 20 118/73 (88) 95 03/04/19 09:00 Room Air Intake and Output 03/04/19 03/05/19 18:59 06:59 Intake Total 100 ml Output Total 0 ml Balance 100 ml Intake Oral 100 ml Output Emesis 0 ml # Voids 2 Height (Feet): 5 Height (Inches): 2.00 Weight (Pounds): 110 Objective WDWN NCAT supple CTA RRR abd soft ND, (+) epigastric TTP no edema Landy Arizmendi MD Mar 05, 2019 08:36
--- NOTE | 2019-03-05 09:00 | NUR ---
NURSE NOTES Patient arrived back to unit via bed, accompanied by RN. Received report from Nury Chamorro RN. Patent is asleep on arrival, no acute distress noted, RR even and unlabored, VS assessed and stable, applied continuous pulseox. IVF restarted through right upper chest port-cath, side rails upx2, bed low and locked, call light in reach. Will continue to monitor.
[2019-03-05] MEDS: QUEtiapine 200mg tab ORAL SCH (09:57)
[2019-03-05] MEDS: Sertraline 100mg tab ORAL SCH (09:57)
[2019-03-05] MEDS: Pantoprazole Inj IVP SCH (09:57)
[2019-03-05 10:14] LABS: BASOPHILS % (AUTO) 0.6 % (0.0-2.0); EOSINOPHILS % (AUTO) 2.4 % (0.0-3.0); HEMATOCRIT 37.9 % (37.0-47.0); HEMOGLOBIN 12.1 G/DL (12.0-16.0); LYMPHOCYTES % (AUTO) 30.5 % (20.0-45.0); MEAN CORPUSCULAR VOLUME 92 FL (80-99); MONOCYTES % (AUTO) 8.3 % (1.0-10.0); NEUTROPHILS % (AUTO) 58.3 % (45.0-75.0); PLATELET COUNT 113 K/UL (150-450); RED BLOOD COUNT 4.12 M/UL (4.20-5.40); RED CELL DISTRIBUTION WIDTH 10.9 % (11.6-14.8); WHITE BLOOD COUNT 4.6 K/UL (4.8-10.8)
--- NOTE | 2019-03-05 13:00 | NUR ---
NURSE NOTES: Patient had one episode of bright red emesis. Reports she is no longer nauseous.
--- NOTE | 2019-03-05 14:48 | Pulmonology Progress Note ---
Assessment/Plan Assessment/Plan Pulmonary Progress Note HPI Patient is a 23 year old female with past history of cystic fibrosis with chronic pancreatitis, islet cell transplant. Admitted c/o 4 days of vomiting and epigastric pain. She had been vomiting blood and had syncopal episodes and some blood in her stool. She has significant pain. She denies any fevers or chills but feels weak at this time. The pain is 10/10 epigastrium. She is been unable to take any medication for this. She denies any dysuria. She is usually cared for at [facility]. SP Upper GI procedure PMH Acute bacterial tonsillitis Upper GI bleeding Status post upper endoscopy with biopsy Possibly pill induced esophagitis Gastritis Anemia due to upper GI bleeding Iron deficiency anemia Chronic pancreatitis Liver cirrhosis ( per imaging) Cystic fibrosis Bipolar disorder with psychotic features Narcotic dependency port a cath seizure history Allergies: Coded Allergies: CHLORHEXIDINE (Verified Allergy, Unknown, Rash, 09/16/18) Social History: Denies: smoking, alcohol use, drug use disabled Physical Vital signs noted WDWN NAD clear breath sounds bilaterally without rhonchi or wheeze [id number] without MRG tender abdomen no CCE nonfocal Laboratory Tests Noted Test 03/03/19 21:45 03/04/19 06:30 White Blood Count 6.1 K/UL (4.8-10.8) 4.9 K/UL (4.8-10.8) Red Blood Count 4.33 M/UL (4.20-5.40) 3.71 M/UL (4.20-5.40) L Hemoglobin 12.7 G/DL (12.0-16.0) 11.1 G/DL (12.0-16.0) L Hematocrit 38.3 % (37.0-47.0) 33.7 % (37.0-47.0) L Mean Corpuscular Volume 88 FL (80-99) 91 FL (80-99) Mean Corpuscular Hemoglobin 29.4 PG (27.0-31.0) 30.0 PG (27.0-31.0) Mean Corpuscular Hemoglobin Concent 33.3 G/DL (32.0-36.0) 33.0 G/DL (32.0-36.0) Red Cell Distribution Width 10.6 % (11.6-14.8) L 11.1 % (11.6-14.8) L Platelet Count 172 K/UL (150-450) 144 K/UL (150-450) L Mean Platelet Volume 6.5 FL (6.5-10.1) 6.4 FL (6.5-10.1) L Neutrophils (%) (Auto) 60.9 % (45.0-75.0) 49.3 % (45.0-75.0) Lymphocytes (%) (Auto) 27.0 % (20.0-45.0) 35.1 % (20.0-45.0) Monocytes (%) (Auto) 8.8 % (1.0-10.0) 10.8 % (1.0-10.0) H Eosinophils (%) (Auto) 2.5 % (0.0-3.0) 4.2 % (0.0-3.0) H Basophils (%) (Auto) 0.7 % (0.0-2.0) 0.7 % (0.0-2.0) Prothrombin Time 10.6 SEC (9.30-11.50) Prothromb Time International Ratio 1.0 (0.9-1.1) Activated Partial Thromboplast Time 26 SEC (23-33) Urine Color Pale yellow Urine Appearance Clear Urine pH 6 (4.5-8.0) Urine Specific Hatch 1.010 (1.005-1.035) Urine Protein Negative (NEGATIVE) Urine Glucose (UA) Negative (NEGATIVE) Urine Ketones Negative (NEGATIVE) Urine Blood 3+ (NEGATIVE) H Urine Nitrite Negative (NEGATIVE) Urine Bilirubin Negative (NEGATIVE) Urine Urobilinogen Normal MG/DL (0.0-1.0) Urine Leukocyte Esterase 1+ (NEGATIVE) H Urine RBC 0-2 /HPF (0 - 2) Urine WBC 0-2 /HPF (0 - 2) Urine Squamous Epithelial Cells Occasional /LPF Urine Bacteria Occasional /HPF (NONE) Urine HCG, Qualitative Negative (NEGATIVE) Sodium Level 138 MMOL/L (136-145) 145 MMOL/L (136-145) Potassium Level 3.1 MMOL/L (3.5-5.1) L 4.0 MMOL/L (3.5-5.1) Chloride Level 101 MMOL/L (98-107) 112 MMOL/L (98-107) H Carbon Dioxide Level 24 MMOL/L (21-32) 22 MMOL/L (21-32) Anion Gap 13 mmol/L (5-15) 11 mmol/L (5-15) Blood Urea Nitrogen 8 mg/dL (7-18) 6 mg/dL (7-18) L Creatinine 0.9 MG/DL (0.55-1.30) 0.9 MG/DL (0.55-1.30) Estimat Glomerular Filtration Rate > 60 mL/min (>60) > 60 mL/min (>60) Glucose Level 104 MG/DL (74-106) 108 MG/DL (74-106) H Calcium Level 8.8 MG/DL (8.5-10.1) 7.7 MG/DL (8.5-10.1) L Total Bilirubin 0.3 MG/DL (0.2-1.0) Aspartate Amino Transf (AST/SGOT) 21 U/L (15-37) Alanine Aminotransferase (ALT/SGPT) 28 U/L (12-78) Alkaline Phosphatase 124 U/L (46-116) H Total Protein 7.6 G/DL (6.4-8.2) Albumin 3.9 G/DL (3.4-5.0) Globulin 3.7 g/dL Albumin/Globulin Ratio 1.1 (1.0-2.7) Lipase 28 U/L (73-393) L IMPRESSION abdominal pain GIB hematemesis pancreatitis CF PLAN NPO pain management gi follow up resume home meds may need transfer to [facility]. impression, plan, and exam edited and reviewed in detail care discussed with RN Subjective ROS Limited/Unobtainable: No Allergies: Coded Allergies: CHLORHEXIDINE (Verified Allergy, Unknown, Rash, 09/16/18) Objective Last 24 Hour Vital Signs Date Time Temp Pulse Resp B/P (MAP) Pulse Ox O2 Delivery O2 Flow Rate FiO2 03/05/19 12:00 98.2 92 14 93/62 (72) 94 03/05/19 10:45 89 100/63 (75) 03/05/19 09:30 Room Air 03/05/19 09:00 97.7 83 11 89/56 (67) 94 03/05/19 09:00 97.2 88 14 91/54 96 Room Air 03/05/19 08:55 91 15 89/55 97 Room Air 03/05/19 08:40 80 11 90/48 99 Simple Mask 6 03/05/19 08:35 83 13 85/47 99 Simple Mask 6 03/05/19 08:30 89 12 99 03/05/19 08:29 79 8 99 03/05/19 08:28 97.5 79 12 89/45 99 Simple Mask 6 03/05/19 07:26 98.5 03/05/19 04:00 98.5 94 18 88/61 (70) 95 03/05/19 00:00 98.2 101 18 99/61 (74) 96 03/04/19 21:00 Room Air 03/04/19 20:00 98.3 100 17 92/56 (68) 95 03/04/19 16:00 98.6 99 18 100/63 (75) 95 Intake and Output 03/04/19 03/05/19 19:00 07:00 Intake Total 100 ml Output Total 0 ml Balance 100 ml Intake Oral 100 ml Output Emesis 0 ml # Voids 2 Laboratory Tests 03/05/19 10:08: White Blood Count 4.6L, Red Blood Count 4.12L, Hemoglobin 12.1, Hematocrit 37.9 , Mean Corpuscular Volume 92, Mean Corpuscular Hemoglobin 29.5, Mean Corpuscular Hemoglobin Concent 32.0, Red Cell Distribution Width 10.9L, Platelet Count 113L, Mean Platelet Volume 7.1, Neutrophils (%) (Auto) 58.3, Lymphocytes (%) (Auto) 30.5, Monocytes (%) (Auto) 8.3, Eosinophils (%) (Auto) 2.4, Basophils (%) (Auto) 0.6 Current Medications Medications (Trade) Dose Ordered Sig/Rudi Route PRN Reason Start Time Stop Time Status Last Admin Dose Admin Diphenhydramine HCl (Benadryl) 25 mg Q8H PRN IVP Itching 03/04/19 18:15 04/03/19 18:14 03/05/19 11:00 Hydromorphone HCl (Dilaudid) 2 mg Q4H PRN IVP pain 03/04/19 05:15 03/11/19 05:14 03/05/19 11:00 Ondansetron HCl (Zofran) 4 mg Q6H PRN IVP Nausea & Vomiting 03/04/19 05:45 04/03/19 05:44 03/04/19 15:52 Pantoprazole (Protonix) 40 mg EVERY 12 HOURS IVP 03/04/19 09:00 04/03/19 08:59 03/05/19 09:57 Quetiapine Fumarate (SEROquel) 200 mg Q12HR ORAL 03/04/19 21:00 04/03/19 20:59 03/05/19 09:57 Sertraline HCl (Zoloft) 200 mg DAILY ORAL 03/04/19 09:00 04/03/19 06:29 03/05/19 09:57 Sodium Chloride 1,000 ml @ 100 mls/hr Q10H IV 03/04/19 06:00 04/03/19 05:59 03/05/19 14:05 Zolpidem Tartrate (Ambien) 5 mg BEDTIME PRN ORAL insomnia 03/04/19 05:28 03/11/19 05:27 03/04/19 23:44 Pollo Silva MD Mar 05, 2019 14:48
--- NOTE | 2019-03-05 16:21 | NUR ---
NURSE NOTES: Received order for AM labs from Dr. Silva, order entered. Informed MD of patient's episode of bloody emesis x1, MD is aware, no further orders given.
--- NOTE | 2019-03-05 17:55 | NUR ---
NURSE NOTES: Patient reporting sore throat, asked patient if she feels like she has a lump or pressure in her throat and she stated "no, it just feels like a sore throat", oxygen saturation within normal range, RR even and unlabored, patient is reporting no shortness of breath and is able to talk without difficulty. Patient provided with ice chips and patient states that they help to alleviate the throat pain. Educated patient that she may experience some throat discomfort since she had a scope this morning, patient states she understands. No further episodes of hematemesis noted. Will continue to monitor.
--- NOTE | 2019-03-05 19:18 | NUR ---
HAND-OFF: Report given to Jg CONTRERAS. Patient is in stable condition.
--- NOTE | 2019-03-05 19:20 | NUR ---
NURSE NOTES: Report taken from BEN Ray. Patient is very agitated walking around unit. Stating that she needs her pain meds and is very anxious. A&Ox4. Pain in upper abdominal region 04/10. Continually states that she wants to change her diet order and get ativan for her anxiety. No signs of distress on room air. Port-a-cath access, c/d/i and patent, running NS at 100mls/hr. Skin is intact, some redness noted near port area. Bed in lowest position call light within reach.
[2019-03-05] MEDS ORDERED: LORazepam 1mg tab ORAL PRN (21:00)
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
--- NOTE | 2019-03-05 21:25 | NUR ---
NURSE NOTES: Patient signed form for AMA. Removed port, covered with gauze and tape. Belongings list signed by patient. Medications from pharmacy returned. [facility] service called for transport to [facility] so she can go home.
--- NOTE | 2019-03-05 21:45 | NUR ---
NURSE NOTES: Patient left unit via taxi.
--- NOTE | 2019-03-06 00:30 | Progress Note ---
DATE: 03/05/2019 SUBJECTIVE: The patient is the same, depressed, withdrawn, isolative. MENTAL STATUS EXAMINATION: The patient is alert, oriented times self, place, and situation. Mood is depressed. Affect is constricted, congruent with mood. Thought process is linear. Thought content, no suicidal or homicidal ideation. ASSESSMENT: Major depressive disorder, anxiety disorder. PLAN: 1. We will continue current medications. 2. Provide the patient with reality orientation and supportive therapy. Sly Muller M.D. DR: JOE JOB#: [id number] CC:
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
--- NOTE | 2019-03-09 21:24 | Endoscopy Procedure Note ---
Endoscopy Procedure Note General Indication for Procedure: UGIB Procedures Performed: EGD Operative Findings/Diagnosis: blood seen, esophagitis, gastritis Specimen: yes Pt Tolerated Procedure Well: Yes Estimated Blood Loss: none Anesthesia Anesthesiologist: see report Anesthesia: MAC Medications Medication Given: see anesthesia record Inserted Devices Implant(s) used?: No GI Core Measures 50 yrs or older w/o bx or poly: Not Applicable 10yrs. F/U recommended: Not Applicable If not recommended, why?: Landy Arizmendi MD Mar 09, 2019 21:24
--- NOTE | 2019-03-09 21:27 | Brief Operative Note ---
Immediate Post Operative Note Operative Note Chief Complaint: ugib Pre-op Diagnosis: gib Procedure: egd Post-op Diagnosis: EGD- Finding similar to 09/2018 EGD blood seen from tongue all the way to duodenum no clear source of bleeding identified mild distal esophagitis and gastritis seen Surgeon: jules Anesthesiologist: see report Anesthesia: MAC Specimen: none Complications: none Condition: stable Fluids: recorded Estimated Blood Loss: none Drains: none Implant(s) used?: No Landy Arizmendi MD Mar 09, 2019 21:27
--- NOTE | 2019-03-09 22:30 | Operative Note - Dictated ---
DATE OF OPERATION: 03/05/2019 GASTROENTEROLOGY PROCEDURE PROCEDURE: Upper gastrointestinal endoscopy. SURGEON: Landy Arizmendi M.D. ANESTHESIA: Please see the separate anesthesiologist notes for details. PRE-ENDOSCOPIC DIAGNOSIS: Upper gastrointestinal bleeding. POST-ENDOSCOPIC DIAGNOSIS: Blood seen all the way from the tongue down to the distal stomach. There was some mild gastritis and mild distal esophagitis, but no clear source for bleeding was identified. DESCRIPTION OF PROCEDURE: The procedure, its risks, indications, alternatives, and possible complications were explained and informed consent was obtained. The patient was then sedated and a diagnostic upper endoscope was introduced through the oropharynx and advanced to the duodenum. The endoscope was then gradually withdrawn and the mucosa examined carefully. Findings are as listed above. The endoscope was removed. The patient was sent to Recovery in good condition. COMPLICATIONS: None. RECOMMENDATIONS: 1. Resume oral diet. 2. Consider Ear, Nose, and Throat consultation. 3. Monitor CBC. Landy Arizmendi M.D. DR: UNIQUE JOB#: [id number] CC:
== END 2019-03-05 21:45 | disposition left against medical advice (07) | DRG 253 ==
LOC: EDBD 21:29 → EMR 22:17 → 3E 22:20 → EDBEDREQ 23:30
PROC: 0DJ08ZZ Inspection of Upper Intestinal Tract, Via Natural or Artificial Opening Endoscopic (ICD-10-PCS; principal; 2019-03-05 07:48)
DX: K92.2 Gastrointestinal hemorrhage, unspecified (principal); E84.9 Cystic fibrosis, unspecified; K86.1 Other chronic pancreatitis; D64.9 Anemia, unspecified; F31.89 Other bipolar disorder; Z90.411 Acquired partial absence of pancreas; G89.29 Other chronic pain; F11.20 Opioid dependence, uncomplicated; F41.9 Anxiety disorder, unspecified; R10.9 Unspecified abdominal pain; Z88.8 Allergy status to other drugs, medicaments and biological substances
CPT/HCPCS: 36415; 71045; 74018; 80048; 80053; 81003; 81025; 83690; 85025; 85610; 85730; 94003; 94150; 96361; 96374; 96375; 99285; J2405; J3490